=== PATIENT | female | born 1960 | race Caucasian/White ===

== ENCOUNTER 2021-05-30 23:22 | Inpatient (IN) | payer BC, SELFPAY ==
--- NOTE | ~2021-05-30 | XR_ITS ---
EXAMINATION: XR fl guide central line place DATE: 06/07/2021 16:18 INDICATION: Tunneled dialysis catheter insertion TECHNIQUE: 2 fluoroscopic images of the chest were obtained during procedure performed by Dr. Conway. Radiologist was not present for the imaging or procedure. The amount of fluoroscopy time used during this procedure was 0.1 minutes. COMPARISON: None. FINDINGS: Large bore dual lumen tunneled right internal jugular central venous dialysis catheter with distal tip at the right atrium. No pneumothorax. IMPRESSION: 1. Right internal jugular central venous catheter tip at the right atrium. Reviewed, dictated and finalized at location A. PORTAL DEVELOPER
--- NOTE | ~2021-05-30 | NM_ITS ---
EXAMINATION: NM hepatobiliary wo pharm DATE: 06/03/2021 16:18 INDICATION: Gallbladder edema COMPARISON: CT dated 05/31/2021 TECHNIQUE: mCi Tc-99m mebrofenin (Choletec) was administered intravenously. Scintigraphic images of the abdomen were obtained for one hour. At the 1 hour time point, the patient drank 8 oz Ensure, and imaging was continued for 60 minutes. Gallbladder ejection fraction was calculated by the technologis t. FINDINGS: There is normal clearance of radiotracer from the blood pool. There is homogeneous tracer u ptake by the liver. Activity progresses to the through the common bile duct into the bowel which is first visible by 10 minutes. No evident activity within the gallbladder however the first hour of amy ging or on the 4 hour delayed images which can be seen with acute cholecystitis. IMPRESSION: 1. No evident activity in the gallbladder which would be consistent with acute cholecystitis. Reviewed, dictated and finalized at location A. GENERALIST
--- NOTE | ~2021-05-30 | CT_ITS ---
EXAMINATION: CT femur RT wo con DATE: 06/02/2021 10:33 INDICATION: Right lower limb stump infection. TECHNIQUE: Computed tomography (CT) of the right lower limb was performed without intravenous contras t. Automated exposure control and iterative reconstruction technique were employed. The dose-length p roduct was 1268.69 mGy-cm. COMPARISON: None FINDINGS: Bone alignment is normal. There are changes of [id number] amputation. No fracture. The re are no erosions of bone to suggest osteomyelitis. There is severe osteoarthritis of the hip joint. There is mild tricompartmental osteoarthritis of the knee. No knee joint effusion. There is widespre ad edema of the soft tissues. IMPRESSION: 1. Below knee amputation. No evidence of osteomyelitis. Reviewed, dictated and finalized at location A. OR SYSTEMS ARCHITECT
--- NOTE | ~2021-05-30 | XR_ITS ---
EXAMINATION: XR chest port-a-cath/central EXAM DATE: 06/07/2021 16:39 INDICATION: Insert Tunneled Dialysis Catheter. TECHNIQUE: Portable AP frontal chest x-ray was obtained. There is no prior study for comparison. FINDINGS: There is a left-sided portacatheter, tip overlying the SVC but projecting right laterally. There is a right-sided IJ double-lumen dialysis catheter in position. Left basilar segmental airspace disease, atelectasis or pneumonia. Mild cardiomegaly. No pneumothorax. IMPRESSION: 1. Left basilar atelectasis or pneumonia. 2. No pneumothorax. 3. Left evie catheter with tip overlying SVC but projecting for patient's right side. Reviewed, dictated and finalized at location G. CAL EXAMINER IMPRESSION: 1. Left basilar atelectasis or pneumonia. 2. No pneumothorax. 3. Left evie catheter with tip overlying SVC but projecting for patient's rig ht side.
--- NOTE | ~2021-05-30 | CT_ITS ---
EXAMINATION: CT abdomen pelvis wo con DATE: 05/31/2021 03:54 INDICATION: Unspecified abdominal pain TECHNIQUE: Computed tomography (CT) of the abdomen and pelvis was performed without intravenous contr ast. Automated exposure control and iterative reconstruction technique were employed. The dose-length product was 1459.11 mGy-cm. COMPARISON: None FINDINGS: Bilateral small posterior layering pleural effusions with dependent compressive atelectasis in the bi lateral lower lobes. There is scattered high attenuation in the atelectatic aspect of the bilateral l ower lobes with configuration particularly in the right lower lobe suggesting a small amount of aspir ated barium in the bronchi versus less likely small calcified pulmonary nodules related to old granul omatous disease. Heart size is normal. Minimal pericardial effusion. Liver, spleen, pancreas and bila teral adrenal glands are normal. lobulations of the bilateral kidneys. Gallstones surrounded by high attenuation sludge versus vicariously excreted contrast in the gallbladder. The gallbladder rem ains normal in size measuring up to 3.6 cm in maximal luminal diameter but with prominent edematous g allbladder wall thickening. No bowel obstruction. Normal appendix. There is additional diffuse edemat ous wall thickening of the colon. Minimal ascites. No abscess or free intraperitoneal gas. Bladder is normal. The uterus is not identified and has likely been surgically resected. Diffuse large amount o f body wall edema. Couple fat-containing ventral hernias along a midline surgical scar with multiple abdominal wall sutures, the smaller and more caudal also containing a minimal amount of ascites. Mild degenerative skeletal changes in the spine and pelvis. IMPRESSION: 1. Anasarca of indeterminate etiology with small bilateral pleural effusions, minimal pericardial eff usion, large amount of severe body wall edema, small amount of ascites and likely at least partially accounting for the edematous gallbladder wall and colonic wall thickening. Differential for the latte r would include acute cholecystitis and colitis respectively. 2. Cholelithiasis. If there is clinical concern for acute cholecystitis could consider HIDA scan for further evaluation. 3. Couple fat-containing ventral hernias along a midline surgical scar. Reviewed, dictated and finalized at location A. INSTALLER IMPRESSION: 1. Anasarca of indeterminate etiology with small bilateral pleural effusions, m inimal pericardial effusion, large amount of severe body wall edema, small amou nt of ascites and likely at least partially accounting for the edematous gallbl adder wall and colonic wall thickening. Differential for the latter would inclu de acute cholecystitis and colitis respectively. 2. Cholelithiasis. If there is clinical concern for acute cholecystitis could c onsider HIDA scan for further evaluation. 3. Couple fat-containing ventral hernias along a midline surgical scar.
--- NOTE | ~2021-05-30 | CT_ITS ---
EXAMINATION: CT femur LT wo con DATE: 06/02/2021 10:32 INDICATION: Stump infection. TECHNIQUE: Computed tomography (CT) of the left lower limb was performed without intravenous contrast . Automated exposure control and iterative reconstruction technique were employed. The dose-length pr oduct was 1300.00 mGy-cm. COMPARISON: None FINDINGS: Bone alignment is normal. No fracture. There is severe left hip osteomyelitis. There is mil d tricompartmental osteoarthritis of left knee. There is a small knee joint effusion. There are smith es of below knee amputation. There is periosteal reaction of the tibial stump. There are no erosions of bone. There is widespread edema of the soft tissues. IMPRESSION: 1. Left below-knee amputation. No specific evidence of osteomyelitis. Reviewed, dictated and finalized at location A. COMMANDER
--- NOTE | ~2021-05-30 | US_ITS ---
EXAMINATION: US renal BI DATE: 06/02/2021 08:57 INDICATION: Elevated creatinine. TECHNIQUE: Multiple ultrasound grayscale images of the kidneys were obtained. COMPARISON: CT abdomen and pelvis 05/31/2021 FINDINGS: The right kidney measures 13.3 x 5.2 x 5.0 cm. The left kidney measures 11.9 x 5.7 x 6.2 cm. The kidn eys demonstrate increased parenchymal echogenicity. There is no hydronephrosis. The bladder is normal . There are gallstones in the gallbladder, which is normal in size. IMPRESSION: 1. Normal kidney sizes. No hydronephrosis. 2. Increased renal parenchymal echogenicity, consistent with nonspecific nephropathy. 3. Cholelithiasis. Reviewed, dictated and finalized at location A. RACTIVE ART DIRECTOR IMPRESSION: 1. Normal kidney sizes. No hydronephrosis. 2. Increased renal parenchymal echogenicity, consistent with nonspecific nephro iza. 3. Cholelithiasis.
[2021-05-31 02:10] VITALS: BP 117/52; PULSE 62; RESP 17; TEMP 36.6; O2SAT 98
[2021-05-31 02:43] LABS: Basophils Absolute Auto 0.1 K/mm3 (0.0-0.1); Basophils Percent Auto 0.2 % (0.2-1.2); Eosinophils Percent Auto 0.1 % (0-4.4); Hematocrit 29.5 % (37.0-47.0); Hemoglobin 9.4 g/dL (12.0-15.0); Immature Granulocyte Absolute 1.07 K/mm3 (0.00-0.031); Immature Granulocyte Percent A 3.7 % (0-0.5); Lymphocytes Absolute Auto 1.02 K/mm3 (0.9-3.2); Lymphocytes Percent Auto 3.5 % (18.3-44.2); Mean Corpuscular HGB Conc 31.9 g/dl (32-36); Mean Corpuscular Hemoglobin 29.3 pg (26-34); Mean Corpuscular Volume 91.9 fl (80-100); Mean Platelet Volume 10.3 fl (7.4-10.4); Monocytes Absolute Auto 0.8 K/mm3 (0.1-0.6); Monocytes Percent Auto 2.6 % (2.6-8.5); Neutrophils Absolute Auto 26.1 K/mm3 (1.3-6.7); Neutrophils Percent Auto 89.9 % (45.5-73.1); Platelet Count Result 213 k/mm3 (150-375); Red Blood Count 3.21 M/mm3 (4.2-5.4); Red Cell Distribution Width 17.7 % (11.5-14.5); White Blood Count 29.1 K/mm3 (4.5-10.0)
[2021-05-31 02:59] LABS: Alanine Aminotransferase 15 U/L (4-35); Albumin Level 2.2 g/dL (3.5-5.1); Alkaline Phosphatase 121 U/L (38-126); Anion Gap 13 mmol/L (8-16); Aspartate Amino Transferase 25 U/L (14-36); Bilirubin,Total 0.3 mg/dL (0.2-1.3); Blood Urea Nitrogen 81 mg/dL (7-17); Calcium 7.3 mg/dL (8.4-10.2); Carbon Dioxide 10 mmol/L (22-30); Chloride 110 mmol/L (98-107); Estimated CRCL calculation 10 ml/min; Estimated Glomerular Filt Rate 7; Glucose 78 mg/dL (65-110); Potassium 4.9 mmol/L (3.4-5.0); Sodium 133 mmol/L (137-145)
[2021-05-31 03:14] LABS: D Dimer 5.57 ug/mL (<0.48)
[2021-05-31 03:16] LABS: Hypochromasia 1+ (NORMAL); Platelet Estimate Adequate (Adequate)
--- NOTE | 2021-05-31 03:39 | ED.GENADULT ---
HPI - General Adult General Chief complaint: Unspecified Stated complaint: FACIAL SWELLING, CANT SIT IN WAITING ROOM Time Seen by Provider: 05/31/21 01:20 Source: patient History of Present Illness HPI narrative: Patient presents with facial and left upper extremity swelling. She has a history of chronic kidney disease is in a nursing facility. Today health care team noted that her arm is swollen her face is swollen. Patient felt like her arm and face were swollen. On arrival to the ER she reports she thinks the swelling is gone down she is feeling much improved and has no acute complaints. She denies any shortness of breath, chest pain, recent fevers, cough, congestion. She does report having some diarrhea recently. Related Data Home Medications Medication Instructions Recorded Confirmed ascorbic acid (vitamin C) 250 mg PO DAILY 05/31/21 atorvastatin 40 mg PO DAILY 05/31/21 bisacodyl 5 mg PO HS 05/31/21 carvedilol 25 mg PO BID 05/31/21 clonidine HCl 0.3 mg PO DAILY 05/31/21 diltiazem HCl 360 mg PO DAILY 05/31/21 doxazosin 8 mg PO HS 05/31/21 ferrous sulfate 325 mg PO DAILY 05/31/21 isosorbide-hydralazine [BiDil] 1 tablet PO TID 05/31/21 minoxidil 2.5 mg PO DAILY 05/31/21 omeprazole 40 mg PO DAILY 05/31/21 Allergies Allergy/AdvReac Type Severity Reaction Status Date / Time No Known Allergies Allergy Verified 05/31/21 02:17 Review of Systems Review of Systems: CONSTITUTIONAL: Denies fever, chills, or sweats. EYES: Denies visual changes, redness, or discharge. ENT: Denies rhinorrhea, congestion, sore throat, or otalgia. CARDIOVASCULAR: Denies chest pain, palpitations, or edema. RESPIRATORY: Denies cough or dyspnea. GASTROINTESTINAL: Denies abdominal pain, nausea, vomiting, or diarrhea. GENITOURINARY: Denies dysuria or hematuria. SKIN: Denies rash or itching. MUSCULOSKELETAL: Denies back pain, joint pain, or myalgia. NEUROLOGIC: Denies headache, numbness, dizziness, or weakness. PSYCHIATRIC: Denies anxiety or depression. All systems reviewed & are unremarkable except as noted in HPI and below Exam Narrative: GENERAL: Well-appearing, well-nourished, and in no acute distress. HEAD: Normocephalic, atraumatic. EYES: PERRLA and EOMI. ENT: Nares clear, no rhinorrhea or epistaxis. Mucous membranes moist. NECK: Supple. No masses. No JVD CHEST: Clear to auscultation. No respiratory distress. No wheezes rales or rhonchi there is a port in place on the left chest HEART: Regular rate and rhythm. No murmur heard. Normal peripheral pulses. ABDOMEN: Soft, nontender, nondistended, normal active bowel sounds. EXTREMITIES: Normal range of motion. No edema. SKIN: Warm, dry, no rash. NEURO: No focal deficits. Alert and oriented x3. PSYCH: Normal mood and affect. Course Vital Signs Vital signs: Vital Signs Temperature 36.6 C 05/31/21 02:10 Pulse Rate 62 05/31/21 02:10 Respiratory Rate 17 05/31/21 02:10 Blood Pressure 117/52 L 05/31/21 02:10 Pulse Oximetry 98 05/31/21 02:10 Temperature 36.6 C 05/31/21 02:10 Pulse Rate 62 05/31/21 02:10 Respiratory Rate 17 05/31/21 02:10 Blood Pressure 117/52 L 05/31/21 02:10 Pulse Oximetry 98 05/31/21 02:10 Medical Decision Making [facility] Narrative Medical decision making narrative: Patient presented with left arm swelling and left facial swelling however resolved at time of ER evaluation she did report some abdominal pain. Labs imaging obtained. Labs notable for creatinine of 6 up from 3.8 approximately 1 to 2 weeks ago and leukocytosis. Imaging with pancolitis and filling of the gallbladder and rule out cholecystitis. Patient had right upper quadrant abdominal pain during initial evaluation resolved with morphine. She continued without pain after her morphine. No complaints however due to her lab abnormalities patient will be admitted to the hospitalist team surgical consultation for imaging findings. Patient is comfortable with inpatient reymundo
[2021-05-31] MEDS: MORPHINE SULFATE (*CRX) 4 MG/ML INJ IV PUSH ×2 (04:19→22:56)
[2021-05-31] MEDS: SODIUM CHLORIDE 0.9% IV 500 ML 999 ML IV CONT (04:20)
[2021-05-31 05:22] LABS: Lactic Acid Reflex 0.8 mmol/L (0.7-2.1)
[2021-05-31 06:03] LABS: Appearance Urine Clear (Clear); Bilirubin Urine Negative (Negative); Blood Urine Negative (Negative); Color Urine Yellow (Yellow); Glucose Urine UA Negative (Negative); Ketones Urine Negative (Negative); Leukocyte Esterase Ur Negative LEU/UL (Negative); Nitrate Urine Negative (Negative); Protein Urine 3+ mg/dL (Negative); Urobilinogen Urine 0.2 mg/dL (<2.0)
[2021-05-31 06:08] LABS: Bacteria Urine Trace /hpf; Mucus Urine Rare /lpf; WBC Urine 0-3 /hpf
[2021-05-31 06:17] LABS: Add Urine Microscopic? YES
[2021-05-31] MEDS: SODIUM CHLORIDE 0.9% IV 1,000 ML 999 ML IV CONT (06:58)
[2021-05-31 07:00] VITALS: BP 103/45; PULSE 66; RESP 17; O2SAT 97
[2021-05-31] MEDS: metroNIDAZOLE 500 MG/ISO 100ML 500 MG/100 ML BAG 100 MG IVPB ×3 (07:17→22:56)
[2021-05-31 07:37] VITALS: BP 113/44; PULSE 72; RESP 16; O2SAT 100
[2021-05-31 07:50] VITALS: BMI 34.7
--- NOTE | 2021-05-31 07:50 | ADMGEN ---
This patient, Piedad Morales, was admitted to [facility] Surg Room 315-01. Patient/family oriented to hospital policies and general routines including ID bracelet, bed and alarms, visiting hours, pain management, procedures, bathroom and other care routines, personal items, smoking policy, room service/diet, and visiting hours. Information on how to activate the Rapid Response Team has been discussed. Patient/Family are encouraged to report perceived risks to care and to ask questions if they do not understand what they are told or what they should do.
[2021-05-31 07:55] LABS: Toxigenic C. Diff POSITIVE (NEGATIVE)
[2021-05-31 08:00] VITALS: BP 107/44; PULSE 66; RESP 14; TEMP 35.8; O2SAT 98
[2021-05-31] MEDS: SODIUM CHLORIDE 0.9% IV 1,000 ML 125 ML IV CONT ×3 (08:39→19:37)
--- NOTE | 2021-05-31 09:45 | PM.IMHP ---
H&P: HPI History of Present Illness Date/Time: 05/31/21 09:45 Chief Complaint: Piedad Morales is a 61 year old lady with a past medical history of IDDM, CKD, and HTN who has been admitted after presenting to the ED from the [place] with complaints of of facial and left upper extremity swelling. The patient is somewhat of a poor historian and it is slow to answer questions. Her symptoms resolved upon arrival to the ED. She had no acute complaints and felt much better. She did report having diarrhea and abdomial pain. During interview and exam she does report been exposed to COVID 19 because she is roomed with positive residents in her facility. She denied any cough, SOB, CP, palpitations, nausea or vomiting. ED evaluation included and revealed: WBC 29.1; H/H 9.4/29.5; BUN/Cr 81/6.10; Na 133. CT of A/P showed pancolitis and filling of the gallbladder and rule out cholecystitis. The patient was treated with morphine and abdominal pain resolved. IV antibiotics were initiated in the ED. General surgery was consulted and the patient has been admitted for further evaluation and treatment. Review of Systems Review of Systems: All systems reviewed & are unremarkable except as noted in HPI and below Meds Home Medications and Allergies Home Medications Medication Instructions Recorded Confirmed Type ascorbic acid (vitamin C) 250 mg PO DAILY 05/31/21 History atorvastatin 40 mg PO DAILY 05/31/21 History bisacodyl 5 mg PO HS 05/31/21 History carvedilol 25 mg PO BID 05/31/21 History clonidine HCl 0.3 mg PO DAILY 05/31/21 History diltiazem HCl 360 mg PO DAILY 05/31/21 History doxazosin 8 mg PO HS 05/31/21 History ferrous sulfate 325 mg PO DAILY 05/31/21 History isosorbide-hydralazine [BiDil] 1 tablet PO TID 05/31/21 History minoxidil 2.5 mg PO DAILY 05/31/21 History omeprazole 40 mg PO DAILY 05/31/21 History Allergies Allergy/AdvReac Type Severity Reaction Status Date / Time No Known Allergies Allergy Verified 05/31/21 02:17 Vital Signs Vital Signs - 24 hr 05/31/21 02:10 05/31/21 07:00 05/31/21 07:37 Temperature 36.6 C Pulse Rate 62 66 72 Respiratory Rate 17 17 16 Blood Pressure 117/52 L 103/45 L 113/44 L Pulse Oximetry 98 97 100 05/31/21 08:00 Temperature 35.8 C L Pulse Rate 66 Respiratory Rate 14 Blood Pressure 107/44 L Pulse Oximetry 98 Exam Narrative: GENERAL: Well-appearing, well-nourished, and in no acute distress. HEAD: Normocephalic, atraumatic. EYES: PERRLA and EOMI. ENT: Nares clear, no rhinorrhea or epistaxis. Mucous membranes moist. NECK: Supple. No masses. No JVD RESP: Clear to auscultation. No respiratory distress. No wheezes rales or rhonchi there is a port in place on the left chest CARDIO: Regular rate and rhythm. No murmur heard. Normal peripheral pulses. GI: Soft, nontender, nondistended, normal active bowel sounds. EXTREMITIES: Right BKA; left BKA. No edema. SKIN: Warm, dry, no rash. NEURO: Alert and oriented x3. Normal speech. PSYCH: Cooperative. H&P: Results Labs Labs: Short CBC 05/31/21 Range/Units 02:34 WBC 29.1 H (4.5-10.0) K/mm3 Hgb 9.4 L (12.0-15.0) g/dL Hct 29.5 L (37.0-47.0) % Plt Count 213 (150-375) k/mm3 BMP 05/31/21 02:34 Sodium 133 L Potassium 4.9 Chloride 110 H Carbon Dioxide 10 L BUN 81 H Creatinine 6.10 H Glucose 78 Calcium 7.3 L Liver Function 05/31/21 Range/Units 02:34 Total Bilirubin 0.3 (0.2-1.3) mg/dL AST 25 (14-36) U/L ALT 15 (4-35) U/L Alkaline Phosphatase 121 (38-126) U/L Albumin 2.2 L (3.5-5.1) g/dL Urine 05/31/21 Range/Units 05:51 Urine Color Yellow (Yellow) Urine Appearance Clear (Clear) Urine pH 5.0 (5.0-9.0) Ur Specific [place] 1.020 (1.001-1.035) Urine Protein 3+ H (Negative) mg/dL Urine Glucose (UA) Negative (Negative) mg/dL Assessment and Plan Assessment and plan (1) Bladder wall thickening: Code(s): N32.89 - Other specif
--- NOTE | 2021-05-31 10:15 | PM.CNGS ---
Assessment and Plan Assessment and plan (1) Abdominal pain: Code(s): R10.9 - Unspecified abdominal pain Status: Acute Assessment and Plan: exam benign this am, will start diet and cont serial exams (2) Leukocytosis: Code(s): D72.829 - Elevated white blood cell count, unspecified Status: Acute Assessment and Plan: unknown etiology, ?CDiff colitis, cont abx and workup for now History of Present Illness Consult details Consult date: 05/31/21 Reason for consult: abdominal pain Requesting physician: Michelle Mireles DO Narrative: Pt is a 61 y/o F c multiple med issues including CKD, HTN, DM presenting to ED from [place] c L sided facial and upper ext swelling. Upon arrival in ED, these symptoms were noted to be resolved. Pt also c/o 1 d h/o R upper abd pain associated c diarrhea. Pt reports she has had a poor appetite. Pt reports this is also resolved. Pt now reports she is quite hungry and would like to eat. Review of Systems Constitutional: Constitutional: Reports anorexia, Denies chills, Reports fatigue, Denies fever(s), Denies increased appetite, Reports lethargy, Reports poor appetite, Reports weakness, Denies weight gain and Denies weight loss Eyes: Eyes: Reports no additional eye complaints ENT: Reports system reviewed and no additional complaints, except as documented Cardiovascular: Cardiovascular: Reports no additional cardiovascular complaints Respiratory: Respiratory: Reports no additional respiratory complaints Gastrointestinal: Gastrointestinal: Reports as per HPI, Reports abdominal pain, Reports bloating, Reports change in bowel habits, Reports change in stool character, Denies constipation, Reports GI cramping, Reports diarrhea, Reports loose stools, Denies nausea and Denies vomiting Genitourinary: Genitourinary: Reports no additional female genitourinary complaints Musculoskeletal: Musculoskeletal: Reports no additional musculoskeletal complaints Integumentary/Breasts: Skin/Breast: Reports system reviewed and no additional complaints, except as docu Neurologic: Reports system reviewed and no additional complaints, except as documented Psychiatric: Psychiatric: Reports no additional psychiatric complaints Endocrine: Endocrine: Reports no additional endocrine complaints Hematologic/Lymphatic: Hematologic/Lymphatic: Reports no additional hematologic/lymphatic complaints Allergic/Immunologic: Allergic/Immunologic: Reports no additional allergic/immunologic complaints PMFSH Comments PMH - HTN, DM, CKD, hyperlipidemia PSH - hysterectomy SH - resides in [place], denies tob, ETOH FH - no CRC, IBD Meds Home Medications and Allergies Home Medications Medication Instructions Recorded Confirmed Type ascorbic acid (vitamin C) 250 mg PO DAILY 05/31/21 History atorvastatin 40 mg PO DAILY 05/31/21 History bisacodyl 5 mg PO HS 05/31/21 History carvedilol 25 mg PO BID 05/31/21 History clonidine HCl 0.3 mg PO DAILY 05/31/21 History diltiazem HCl 360 mg PO DAILY 05/31/21 History doxazosin 8 mg PO HS 05/31/21 History ferrous sulfate 325 mg PO DAILY 05/31/21 History isosorbide-hydralazine [BiDil] 1 tablet PO TID 05/31/21 History minoxidil 2.5 mg PO DAILY 05/31/21 History omeprazole 40 mg PO DAILY 05/31/21 History Allergies Allergy/AdvReac Type Severity Reaction Status Date / Time No Known Allergies Allergy Verified 05/31/21 02:17 Vital Signs Vital Signs - 24 hr 05/31/21 02:10 05/31/21 07:00 05/31/21 07:37 Temperature 36.6 C Pulse Rate 62 66 72 Respiratory Rate 17 17 16 Blood Pressure 117/52 L 103/45 L 113/44 L Pulse Oximetry 98 97 100 05/31/21 08:00 Temperature 35.8 C L Pulse Rate 66 Respiratory Rate 14 Blood Pressure 107/44 L Pulse Oximetry 98 Exam Const: General: cooperative, no acute distress, alert, awake and ill appearing Nutritional Appearance: obese Orientation/consciousness: patient oriented x3 Limitations: no limitations [facility]
[2021-05-31 11:53] LABS: Glucose Point of Care 85 mg/dl (65-105)
[2021-05-31 16:00] VITALS: BP 133/46; PULSE 74; RESP 16; TEMP 35.9; O2SAT 98
[2021-05-31 17:48] LABS: Glucose Point of Care 106 mg/dl (65-105)
[2021-05-31] MEDS: PERMETHRIN 1% LIQUID 59 ML BOTTLE 1 APPLIC TOPICAL (19:36)
[2021-05-31 20:00] VITALS: BP 141/48; PULSE 76; RESP 16; TEMP 36.6; O2SAT 97
[2021-06-01] VITALS (7 sets, daily range): BP systolic 140–167; BP diastolic 45–80; PULSE 79–89; RESP 14–19; TEMP 36.3–36.7; O2SAT 96–98
[2021-06-01 00:04] LABS: Glucose Point of Care 116 mg/dl (65-105)
--- NOTE | 2021-06-01 02:22 | PC.NURSE ---
06/01/2021221 pt refused to allow staff to turn and reposition while in bed.
--- NOTE | 2021-06-01 04:08 | PC.NURSE ---
06/01/2021 0409 pt refused to allow staff to turn and reposition.
[2021-06-01] MEDS: SODIUM CHLORIDE 0.9% IV 1,000 ML 125 ML IV CONT (05:08)
[2021-06-01] MEDS: metroNIDAZOLE 500 MG/ISO 100ML 500 MG/100 ML BAG 100 MG IVPB ×3 (05:50→20:41)
[2021-06-01 06:29] LABS: Hematocrit 29.1 % (37.0-47.0); Hemoglobin 9.4 g/dL (12.0-15.0); Mean Corpuscular HGB Conc 32.3 g/dl (32-36); Mean Corpuscular Hemoglobin 28.7 pg (26-34); Mean Platelet Volume 10.9 fl (7.4-10.4); Platelet Count Result 252 k/mm3 (150-375); Red Blood Count 3.27 M/mm3 (4.2-5.4); Red Cell Distribution Width 17.9 % (11.5-14.5); White Blood Count 30.4 K/mm3 (4.5-10.0)
[2021-06-01 06:38] LABS: Albumin Level 2.2 g/dL (3.5-5.1); Anion Gap 9 mmol/L (8-16); Blood Urea Nitrogen 78 mg/dL (7-17); Calcium 6.7 mg/dL (8.4-10.2); Carbon Dioxide 9 mmol/L (22-30); Chloride 113 mmol/L (98-107); Estimated CRCL calculation 10 ml/min; Estimated Glomerular Filt Rate 7; Glucose 91 mg/dL (65-110); Potassium 4.4 mmol/L (3.4-5.0); Sodium 131 mmol/L (137-145)
[2021-06-01 06:51] LABS: Hemoglobin A1C 5.7 % (<5.7)
[2021-06-01 06:53] LABS: Iron 49 ug/dL (37-170)
[2021-06-01 07:04] LABS: Percent Iron Saturation 41 % (20-50)
[2021-06-01 08:09] LABS: Glucose Point of Care 86 mg/dl (65-105)
--- NOTE | 2021-06-01 10:40 | PM.PNGS ---
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 Status: Acute Assessment and Plan: exam benign, parish diet, seems secondary to anasarca, will get HIDA to further evaluate Subjective Subjective Date/Time Seen: 06/01/21 10:40 no acute issues, parish full liquids, no abd pain, still c some diarrhea Review of Systems Review of Systems: All systems reviewed & are unremarkable except as noted in HPI and below Exam Const: General: cooperative, comfortable, no acute distress and ill appearing Orientation/consciousness: patient oriented x3 Resp: Auscultation: clear to auscultation bilaterally Cardio: Rate: regular rate Rhythm: regular rhythm GI: Inspection: normal to inspection and distended GI Palp: Yes Soft to palpation, No Tenderness to palpation present (GI), No Guarding due to palpation present (GI) and No Rigid due to palpation Objective Data Vital Signs Vital Signs: Vital Signs - 24 hr 05/31/21 16:00 05/31/21 20:00 06/01/21 00:00 Temperature 35.9 C L 36.6 C 36.3 C L Pulse Rate 74 76 79 Respiratory Rate 16 16 16 Blood Pressure 133/46 L 141/48 H 140/45 L Pulse Oximetry 98 97 98 06/01/21 04:00 06/01/21 08:00 Temperature 36.5 C 36.6 C Pulse Rate 81 83 Respiratory Rate 19 14 Blood Pressure 147/47 H 147/53 H Pulse Oximetry 98 96 Intake/Output Intake/Output: Intake & Output 05/29/21 05/30/21 05/31/21 06/01/21 23:59 23:59 23:59 23:59 Intake Total 5050 2750 Balance 5050 2750 Meds/Results Medications: Active Medications Generic Name Dose Route Start Last Admin Trade Name Freq PRN Reason Stop Dose Admin Dextrose 12.5 gm 05/31/21 10:23 Dextrose 50% 25 Gm/50 Ml Syringe IV PUSH PRN PRN Hypoglycemia Protocol Glucagon 1 mg 05/31/21 10:23 Glucagon For Inj 1 Mg Vial IM PRN PRN Hypoglycemia Protocol Glucose 15 gm 05/31/21 10:23 Glucose Oral Gel 15 Gm Of Glucse In 37.5 Gm Tube PO PRN PRN Hypoglycemia Protocol Piperacillin Sod/Tazobactam Sod 2.25 gm in 50 mls @ 100 mls/hr 05/31/21 14:00 06/01/21 05:08 Zosyn 2.25 Gm/D5w 50 Ml IVPB 100 mls/hr Q8HR GLORY Administration Metronidazole 500 mg in 100 mls @ 100 mls/hr 05/31/21 14:00 06/01/21 05:50 Flagyl 500 Mg/Iso Soln 100 Ml IVPB 100 mls/hr Q8HR GLORY Administration Sodium Chloride 1,000 mls @ 125 mls/hr 05/31/21 06:15 06/01/21 05:08 Normal Saline Iv IV CONT 125 mls/hr .Q8H GLORY Administration Dextrose 1,000 mls @ 100 mls/hr 05/31/21 10:23 Dextrose 5% 1,000 Ml IVPB PRN PRN Hypoglycemia Protocol Morphine Sulfate 4 mg 05/31/21 06:12 05/31/21 22:56 Morphine Sulfate (*Crx) 4 Mg/Ml Inj IV PUSH 4 mg Q2H PRN Administration Pain Rated 7-10 Ondansetron HCl 4 mg 05/31/21 06:12 Ondansetron Inj 4 Mg/2 Ml Vial IV PUSH Q4H PRN Nausea Radiology Results: ITS Impressions Abdomen/Pelvis CT 05/31/21 08:17 IMPRESSION: 1. Anasarca of indeterminate etiology with small bilateral pleural effusions, minimal pericardial effusion, large amount of severe body wall edema, small amount of ascites and likely at least partially accounting for the edematous gallbladder wall and colonic wall thickening. Differential for the latter would include acute cholecystitis and colitis respectively. 2. Cholelithiasis. If there is clinical concern for acute cholecystitis could consider HIDA scan for further evaluation. 3. Couple fat-containing ventral hernias along a midline surgical scar. Labs Labs: Laboratory Results - last 24 hr 05/31/21 05/31/21 05/31/21 11:50 17:45 23:05 WBC RBC Hgb Hct MCV MCH MCHC RDW Plt
--- NOTE | 2021-06-01 10:50 | PM.IMPN ---
Progress Note: A&P Assessment and Plan (1) Bladder wall thickening: Code(s): N32.89 - Other specified disorders of bladder Status: Acute Assessment and Plan: R/o cholecystitis GS consulted, continue current treatment (2) Colitis: Code(s): K52.9 - Noninfective gastroenteritis and colitis, unspecified Status: Acute Assessment and Plan: Continue IVF Continue with IV antibiotics I am concerned more on the side of edema than infectious colitis (3) IDDM (insulin dependent diabetes mellitus): Status: Acute Assessment and Plan: Resume home medication (4) HTN (hypertension) with goal to be determined: Code(s): I10 - Essential (primary) hypertension Status: Acute Assessment and Plan: DC IV fluid Adjusted home medication (5) C. difficile colitis: Code(s): A04.72 - Enterocolitis due to Clostridium difficile, not specified as recurrent Status: Acute Assessment and Plan: Will get old records I am not seen C diff positive in the records (6) Person under investigation for COVID-19: Code(s): Z20.822 - Contact with and (suspected) exposure to COVID-19 Status: Acute Assessment and Plan: Pt shares room with COVID pts Continue to monitor Denies any symptoms (7) CKD (chronic kidney disease): Code(s): N18.9 - Chronic kidney disease, unspecified Status: Acute Assessment and Plan: Acute on top of chronic renal failure DC IV fluid patient has anasarca urine study was sent nephrology consult CT scan no evidence of hydronephrosis Give IV Lasix give 1 dose of IV albumin pending nephrology eval (8) Anemia: Code(s): D64.9 - Anemia, unspecified Status: Acute Assessment and Plan: Hgb 9.4 Transfuse if <7 Monitor Subjective Date/time seen: 06/01/21 10:50 Interval history: Patient seen and examined Patient presented to the hospital with abdominal pain CT scan shows anasarca concern for colitis cholecystitis surgery was consulted patient was treated with empiric antibiotic has she has significant leukocytosis but also CT scan shows pericardial effusion pleural effusion concern for anasarca Patient denies fever headache chest pain I am seeing the patient for anasarca Exam Narrative: Alert Chest decreased air entry bilateral positive crackles Abdomen nontender nondistended CVS S1 + S2 Bilateral lower extremity stump edema Objective Data Vital Signs Vital Signs: Vital Signs - 24 hr 05/31/21 16:00 05/31/21 20:00 06/01/21 00:00 Temperature 96.6 F L 97.8 F 97.4 F L Pulse Rate 74 76 79 Respiratory Rate 16 16 16 Blood Pressure 133/46 L 141/48 H 140/45 L Pulse Oximetry 98 97 98 06/01/21 04:00 06/01/21 08:00 Temperature 97.7 F 97.8 F Pulse Rate 81 83 Respiratory Rate 19 14 Blood Pressure 147/47 H 147/53 H Pulse Oximetry 98 96 Intake/Output Intake/Output: Intake & Output 05/29/21 05/30/21 05/31/21 06/01/21 23:59 23:59 23:59 23:59 Intake Total 5050 2750 Balance 5050 2750 Meds/Results Medications: Active Medications Generic Name Dose Route Start Last Admin Trade Name Freq PRN Reason Stop Dose Admin Hydrocodone Bitart/Acetaminophen 1 tab 06/01/21 10:45 Hydrocodone/Acetaminophen (*Crx) 5-325 Mg Tablet PO Q4H PRN Pain Albuterol 2 puff 06/01/21 10:45 Albuterol Sulfate (*Sp) Aerosol 1 Puff INHALATION Q4H PRN Shortness Of Breath Ascorbic Acid 500 mg 06/02/21 09:00 Ascorbic Acid 500 Mg Tablet PO DAILY [facility] Atorvastatin Calcium 40 mg 06/02/21 09:00 Atorvastatin 40 Mg Tablet PO DAILY [facility] Bisacodyl 5 mg 06/01/21 10:45 Bisacodyl 5 Mg Tablet Ec PO HS PRN Constipation Carvedilol 25 mg 06/01/21 17:00 Carvedilol 25 Mg Tablet PO BID [facility] Clonidine HCl 0.1 mg 06/01/21 13:00 Clonidine Hcl 0.1 Mg Tablet PO TID GLORY Dextrose 12.5 gm 05/31/21 10:23 Dextrose 50% 25 Gm/
--- NOTE | 2021-06-01 11:40 | PM.CNNEP ---
Assessment and Plan Assessment and plan (1) CKD (chronic kidney disease): Code(s): N18.9 - Chronic kidney disease, unspecified Status: Acute Assessment and Plan: the patient has chronic kidney disease. She sees a crepe box tender in [place]. They have talked about dialysis but apparently she is not there yet. It does not sound like her creatinine is has high at baseline is it is here now. Most likely diabetes and hypertension of the cause of her kidney disease. Will try to get some records from [place]. The patient has probable acute kidney injury as well. This might be due to dehydration. She is not eating all that well and she has significant diarrhea. She also has C diff which could also lead to an increase in creatinine if the colitis is severe. Rhabdomyolysis is always a possibility so will check a CK. Obstruction is always a possibility so will check a renal ultrasound there other causes such as glomerulonephritis or interstitial nephritis which I think are less likely in this clinical scenario. Will check a renal ultrasound, urine electrolytes, CPK, and repeat the labs tomorrow after getting some more IV fluids and treating the C diff. (2) Person under investigation for COVID-19: Code(s): Z20.822 - Contact with and (suspected) exposure to COVID-19 Status: Acute Assessment and Plan: the patient is on respiratory isolation. (3) C. difficile colitis: Code(s): A04.72 - Enterocolitis due to Clostridium difficile, not specified as recurrent Status: Acute Assessment and Plan: The patient is on contact / washer hands isolation. She is on Flagyl. (4) Anemia: Code(s): D64.9 - Anemia, unspecified Status: Acute Assessment and Plan: Hemoglobin is 9.4. Not low enough to start GYPSY for now. (5) Hyperkalemia: Code(s): E87.5 - Hyperkalemia Status: Acute Assessment and Plan: the patient is on Kayexalate at home. This of course would contribute to her diarrhea but does not cause C diff. Her potassium is okay here. I think we will hold off on giving this for now. (6) HTN (hypertension) with goal to be determined: Code(s): I10 - Essential (primary) hypertension Status: Acute Assessment and Plan: Blood pressure is doing pretty well. I think we will just resume her home medications. (7) IDDM (insulin dependent diabetes mellitus): Status: Acute Assessment and Plan: She is on Accu-Cheks and sliding-scale insulin. History of Present Illness Reason for Consult Consult date: 06/01/21 Chief Complaint Chief complaint: Leuckocytosis History of Present Illness Narrative: Piedad is a very pleasant 61-year-old lady who has multiple medical problems including diabetes, hypertension, chronic kidney disease of unknown baseline, hyperlipidemia who came in to the hospital because of facial swelling. This is been going on for a few days. When she sat in the emergency room waiting room the symptoms improved. She was seen in the ER and found to have volume overload plus a very high creatinine and also abdominal discomfort and diarrhea for several weeks so she was admitted. The patient does see a crepe box tender in [place]. She does not know how her kidneys are functioning. Someone has mention dialysis but her primary care doctor does not want her to do that. She does have chronic swelling. This is been going on for a long time. It involves her legs and her hips and lower belly. The patient denies any bloody urine, foamy urine, kidney stones, or bladder infections. She does not take any Advil Aleve ibuprofen or Motrin. She has had diabetes for a long period of time. She does not have diabetic retinopathy that she knows of. On admission because of the belly pain she was seen by General surgery who felt that this could be observed. Review of Systems Constitutional: Cons
[2021-06-01 12:09] LABS: SARS-CoV-2 RNA PCR Positive
[2021-06-01 12:33] LABS: Glucose Point of Care 132 mg/dl (65-105)
[2021-06-01 13:04] LABS: Creatine Kinase 64 U/L (30-135)
[2021-06-01] MEDS: ALBUMIN HUMAN 25% 25 GM/100 ML 100 ML IVPB (13:08)
[2021-06-01 16:36] LABS: Glucose Point of Care 109 mg/dl (65-105)
[2021-06-01] MEDS: FUROSEMIDE INJ 40 MG/4 ML VIAL IV PUSH (18:15)
[2021-06-01] MEDS: hydrALAZINE 12.5 MG TABLET 37.5 MG PO (18:16)
[2021-06-01] MEDS: carvediloL 25 MG TABLET PO ×2 (18:16→20:40)
[2021-06-01] MEDS: cloNIDine HCL 0.1 MG TABLET PO (18:16)
[2021-06-01] MEDS: ISOSORBIDE DINITRATE 20 MG TABLET PO (18:16)
[2021-06-01] MEDS: traZODone HCL 50 MG TABLET 100 MG PO (20:41)
[2021-06-01] MEDS: HYDROcodone/acetaminophen (*CRX) 5-325 MG TABLET 1 TAB PO (20:58)
[2021-06-02] VITALS (8 sets, daily range): BP systolic 115–182; BP diastolic 41–61; PULSE 57–79; RESP 17–20; TEMP 35.9–36.9; O2SAT 96–99
[2021-06-02 05:17] LABS: Toxigenic C. Diff POSITIVE (NEGATIVE)
[2021-06-02] MEDS: metroNIDAZOLE 500 MG/ISO 100ML 500 MG/100 ML BAG 100 MG IVPB ×3 (05:26→21:02)
[2021-06-02 06:23] LABS: Albumin Level 2.2 g/dL (3.5-5.1); Anion Gap 14 mmol/L (8-16); Blood Urea Nitrogen 77 mg/dL (7-17); Calcium 6.5 mg/dL (8.4-10.2); Carbon Dioxide 8 mmol/L (22-30); Chloride 112 mmol/L (98-107); Estimated CRCL calculation 10 ml/min; Estimated Glomerular Filt Rate 7; Glucose 92 mg/dL (65-110); Phosphorus 7.9 mg/dL (2.5-4.5); Potassium 4.5 mmol/L (3.4-5.0); Sodium 134 mmol/L (137-145)
[2021-06-02 08:02] LABS: Glucose Point of Care 98 mg/dl (65-105)
[2021-06-02] MEDS: ISOSORBIDE DINITRATE 20 MG TABLET PO ×2 (09:17→12:13)
[2021-06-02] MEDS: carvediloL 25 MG TABLET PO ×2 (09:17→21:02)
[2021-06-02] MEDS: cloNIDine HCL 0.1 MG TABLET PO ×3 (09:17→16:40)
[2021-06-02] MEDS: ATORVASTATIN 40 MG TABLET PO (09:17)
[2021-06-02] MEDS: ASCORBIC ACID 500 MG TABLET PO (09:18)
[2021-06-02] MEDS: PANTOPRAZOLE 40 MG TABLET PO ×2 (09:18→21:01)
[2021-06-02] MEDS: hydrALAZINE 12.5 MG TABLET 37.5 MG PO ×2 (09:18→12:13)
[2021-06-02] MEDS: THERAPEUTIC MULTIVITAMINS/MINERALS TAB (*BKC) 1 TABLET PO (09:18)
[2021-06-02] MEDS: dilTIAZem HCL CD 180 MG CAP.ER.24H 360 MG PO (09:18)
[2021-06-02] MEDS: FERROUS SULFATE 324 MG TABLET PO (09:18)
[2021-06-02] MEDS: FUROSEMIDE INJ 40 MG/4 ML VIAL IV PUSH (09:19)
[2021-06-02] MEDS: DOCUSATE SODIUM 100 MG CAPSULE PO (09:19)
--- NOTE | 2021-06-02 09:33 | PM.IMPN ---
Progress Note: A&P Assessment and Plan (1) Bladder wall thickening: Code(s): N32.89 - Other specified disorders of bladder Status: Acute Assessment and Plan: R/o cholecystitis GS consulted, continue current treatment Pending HIDA scan (2) Colitis: Code(s): K52.9 - Noninfective gastroenteritis and colitis, unspecified Status: Acute Assessment and Plan: Continue IVF Continue with IV antibiotics I am concerned more on the side of edema than infectious colitis Pending stool study Pending C diff (3) IDDM (insulin dependent diabetes mellitus): Status: Acute Assessment and Plan: Resume home medication (4) HTN (hypertension) with goal to be determined: Code(s): I10 - Essential (primary) hypertension Status: Acute Assessment and Plan: DC IV fluid Adjusted home medication (5) C. difficile colitis: Code(s): A04.72 - Enterocolitis due to Clostridium difficile, not specified as recurrent Status: Acute Assessment and Plan: Continue Flagyl for now pending C diff (6) Person under investigation for COVID-19: Code(s): Z20.822 - Contact with and (suspected) exposure to COVID-19 Status: Acute Assessment and Plan: Pt shares room with COVID pts Continue to monitor Denies any symptoms COVID-19 is positive From the sign out patient has positive test at intermediate pending records before she came in (7) CKD (chronic kidney disease): Code(s): N18.9 - Chronic kidney disease, unspecified Status: Acute Assessment and Plan: Acute on top of chronic renal failure DC IV fluid patient has anasarca urine study was sent nephrology consult CT scan no evidence of hydronephrosis DC IV Lasix for today (8) Anemia: Code(s): D64.9 - Anemia, unspecified Status: Acute Assessment and Plan: Hgb 9.4 Transfuse if <7 Monitor (9) BKA stump complication: Code(s): T87.9 - Unspecified complications of amputation stump Status: Acute Assessment and Plan: Orthopedic consulted May need CT scan of the left stump Has increased drainage Subjective Date/time seen: 06/02/21 09:33 Interval history: Patient seen and examined Patient presented to the hospital with abdominal pain CT scan shows anasarca concern for colitis cholecystitis surgery was consulted patient was treated with empiric antibiotic has she has significant leukocytosis but also CT scan shows pericardial effusion pleural effusion concern for anasarca Renal function worsened yesterday Edema has improved DC IV Lasix Pending nephrology evaluation Pending ultrasound Pending blood culture Continue IV antibiotics Pending HIDA scan Patient has drainage from the left leg stump patient has a BKA on 05/12/2021 orthopedic was consulted Patient denies fever headache chest pain I am seeing the patient for anasarca Exam Narrative: Alert Chest decreased air entry bilateral positive crackles Abdomen nontender nondistended CVS S1 + S2 Bilateral lower extremity stump edema Objective Data Vital Signs Vital Signs: Vital Signs - 24 hr 06/01/21 12:00 06/01/21 16:00 06/01/21 20:00 Temperature 97.7 F 98.1 F 98.1 F Pulse Rate 89 88 82 Respiratory Rate 14 14 16 Blood Pressure 155/60 H 167/80 H 150/57 H Pulse Oximetry 97 97 98 06/01/21 22:45 06/02/21 00:00 06/02/21 04:00 Temperature 97.0 F L 97.8 F Pulse Rate 76 79 Respiratory Rate 18 18 Blood Pressure 146/54 H 152/61 H Pulse Oximetry 98 98 98 06/02/21 09:17 Temperature Pulse Rate 79 Respiratory Rate Blood Pressure Pulse Oximetry Intake/Output Intake/Output: Intake & Output 05/30/21 05/31/21 06/01/21 06/02/21 23:59 23:59 23:59 23:59 Intake Total 5050 3370 940 Balance 5050 3370 940 Meds/Results Medications: Active Medications Generic Name Dose Route Start Last Admin Trade Name Freq PRN Reason Stop Dose Admin Hydrocodone Bitart/Acetamino
[2021-06-02] MEDS: SODIUM BICARBONATE TAB 650 MG TABLET 1300 MG PO ×2 (09:34→16:41)
[2021-06-02] MEDS: SODIUM BICARBONATE 8.4% 50 MEQ/50 ML SYRINGE IV PUSH (09:34)
[2021-06-02 09:40] LABS: Basophils Absolute Auto 0.1 K/mm3 (0.0-0.1); Basophils Percent Auto 0.2 % (0.2-1.2); Eosinophils Absolute Auto 0.1 K/mm3 (0-0.3); Eosinophils Percent Auto 0.5 % (0-4.4); Hematocrit 28.8 % (37.0-47.0); Hemoglobin 9.1 g/dL (12.0-15.0); Immature Granulocyte Absolute 0.39 K/mm3 (0.00-0.031); Immature Granulocyte Percent A 1.9 % (0-0.5); Immature Platelet Fraction Pct 2.7 % (0.9-11.2); Lymphocytes Absolute Auto 0.89 K/mm3 (0.9-3.2); Lymphocytes Percent Auto 4.2 % (18.3-44.2); Mean Corpuscular HGB Conc 31.6 g/dl (32-36); Mean Corpuscular Hemoglobin 28.6 pg (26-34); Mean Corpuscular Volume 90.6 fl (80-100); Mean Platelet Volume 10.3 fl (7.4-10.4); Monocytes Absolute Auto 0.8 K/mm3 (0.1-0.6); Monocytes Percent Auto 3.7 % (2.6-8.5); Neutrophils Absolute Auto 18.8 K/mm3 (1.3-6.7); Neutrophils Percent Auto 89.5 % (45.5-73.1); Platelet Count Result 222 k/mm3 (150-375); Red Blood Count 3.18 M/mm3 (4.2-5.4); Red Cell Distribution Width 17.6 % (11.5-14.5)
[2021-06-02 09:45] LABS: Alanine Aminotransferase 11 U/L (4-35); Albumin Level 2.2 g/dL (3.5-5.1); Alkaline Phosphatase 108 U/L (38-126); Anion Gap 12 mmol/L (8-16); Aspartate Amino Transferase 21 U/L (14-36); Bilirubin,Total 0.2 mg/dL (0.2-1.3); Blood Urea Nitrogen 77 mg/dL (7-17); Calcium 6.6 mg/dL (8.4-10.2); Carbon Dioxide 9 mmol/L (22-30); Chloride 113 mmol/L (98-107); Estimated CRCL calculation 10 ml/min; Estimated Glomerular Filt Rate 7; Glucose 92 mg/dL (65-110); Potassium 4.5 mmol/L (3.4-5.0); Sodium 134 mmol/L (137-145)
--- NOTE | 2021-06-02 10:04 | PM.PNNEP ---
Progress Note: A&P Assessment and Plan (1) CKD (chronic kidney disease): Code(s): N18.9 - Chronic kidney disease, unspecified Status: Acute Assessment and Plan: the patient has chronic kidney disease. She sees a product owner in [place]. They have talked about dialysis but apparently she is not there yet. It does not sound like her creatinine is has high at baseline is it is here now. we have not received any records from them quite yet. Probably will get some tomorrow when the office is open up. Most likely diabetes and hypertension of the cause of her kidney disease. Renal ultrasound was viewed by me but report is not out yet. It looks like some increased echogenicity with normal size consistent with diabetic nephropathy. Urine electrolytes and protein are pending. UA is bland CPK is normal She has 3+ protein on her urinalysis. Urine protein to creatinine ratio has not been collected yet. I suspect she has nephrotic syndrome with her low albumin and severe edema. Will check an echocardiogram and see with the urine protein shows. The patient has COVID and also C diff colitis, both of which can cause acute on chronic renal insufficiency. at this point she has significant fluid burden. Will try diuretics to see if we can help this. Albumin might help as well. Will start this after couple doses of diuretics. The patient also has metabolic acidosis. This is probably from renal failure plus the diarrhea. Anion gap is only 12. Will give bicarb supplements. (2) Person under investigation for COVID-19: Code(s): Z20.822 - Contact with and (suspected) exposure to COVID-19 Status: Acute Assessment and Plan: the patient is on respiratory isolation. (3) C. difficile colitis: Code(s): A04.72 - Enterocolitis due to Clostridium difficile, not specified as recurrent Status: Acute Assessment and Plan: The patient is on contact / washer hands isolation. She is on Flagyl. (4) Anemia: Code(s): D64.9 - Anemia, unspecified Status: Acute Assessment and Plan: Hemoglobin is 9.4. Not low enough to start GYPSY for now. (5) Hyperkalemia: Code(s): E87.5 - Hyperkalemia Status: Acute Assessment and Plan: the patient is on Kayexalate at home. she is not on this now because of her diarrhea. Perhaps her C diff is keeping her potassium low. (6) HTN (hypertension) with goal to be determined: Code(s): I10 - Essential (primary) hypertension Status: Acute Assessment and Plan: Blood pressure is doing pretty well. I think we will just resume her home medications. (7) IDDM (insulin dependent diabetes mellitus): Status: Acute Assessment and Plan: She is on Accu-Cheks and sliding-scale insulin. Subjective Date/time seen: 06/02/21 10:04 Interval history: Patient feels about the same today. She gets short of breath when she moves around or lays flat. She is fine when she is in semi follows position. She is still very swollen. Review of Systems Cardiovascular: Cardiovascular: Reports no additional cardiovascular complaints Respiratory: Respiratory: Reports no additional respiratory complaints Gastrointestinal: Gastrointestinal: Reports no additional gastrointestinal complaints Genitourinary: Genitourinary: Reports no additional female genitourinary complaints Exam Narrative: WDWN in NAD skin no rash head ncat lungs clear cor reg no rub abd BS+ nontender and soft ext Bilateral [id number] amputations. She has 2+ edema up to the umbilicus. Objective Data Vital Signs Vital Signs: Vital Signs - 24 hr 06/01/21 12:00 06/01/21 16:00 06/01/21 20:00 Temperature 36.5 C 36.7 C 36.7 C Pulse Rate 89 88 82 Respiratory Rate 14 14 16 Blood Pressure 155/60 H 167/80 H 150/57 H Pulse Oximetry 97 97 98 06/01/21 22:45 06/02/21 00:00 06/02/21 04:00 Temperature 36
[2021-06-02 10:56] LABS: Hypochromasia 1+ (NORMAL); Platelet Estimate Adequate (Adequate)
[2021-06-02 10:57] LABS: Crenated RBC 2+ (NORMAL); Ovalocytes 1+ (NORMAL)
[2021-06-02 11:33] LABS: Glucose Point of Care 105 mg/dl (65-105)
[2021-06-02] MEDS: BUMETANIDE INJ 2.5 MG/10 ML VIAL 2 MG IV PUSH ×2 (11:54→16:40)
[2021-06-02] MEDS: MORPHINE SULFATE (*CRX) 4 MG/ML INJ IV PUSH (12:14)
--- NOTE | 2021-06-02 12:46 | PM.CNOR ---
Assessment and Plan Additional Plan L LE amputation stump retained stitch removed. dry sterile dressings and then may leave open to air once no drainage. wash daily with antiseptic wipe. F/U with operative surgeon once d/c from [facility] Could f/u with me as needed but this is not critical if wound is healing well. History of Present Illness HPI Consult date: 06/02/21 Chief complaint: Leuckocytosis Narrative: 61 yo f admitted for medical rx. She is about 1 month s/p left LE amputation. The stitches from the closure are still in place. Some serous drainage is starting at the lat corner of the incision. PMFSH Past Medical History Medical History (Updated 06/02/21 @ 09:37 by Fabiola Diaz MD) Hyperkalemia Social History Social History Smoking status: Former smoker Tobacco type: cigarettes Second hand tobacco smoke exposure: No Alcohol intake: never Substance use: never Gender identity (if verbalized by the patient): Female Sexual Orientation (if Verbalized by the Patient): Straight or Heterosexual Spiritual care concerns: No Meds Home Medications and Allergies Home Medications Medication Instructions Recorded Confirmed Type albuterol sulfate 2 puff INHALATION Q4H PRN 05/31/21 05/31/21 History ascorbic acid (vitamin C) 500 mg PO DAILY 05/31/21 05/31/21 History atorvastatin 40 mg PO DAILY 05/31/21 05/31/21 History bisacodyl 5 mg PO HS PRN 05/31/21 05/31/21 History carvedilol 25 mg PO BID 05/31/21 05/31/21 History clonidine HCl 0.3 mg PO TID 05/31/21 05/31/21 History diltiazem HCl 360 mg PO DAILY 05/31/21 05/31/21 History docusate sodium [DOK] 100 mg PO DAILY 05/31/21 05/31/21 History doxazosin 8 mg PO HS 05/31/21 05/31/21 History ferrous sulfate 325 mg PO DAILY 05/31/21 05/31/21 History hydrocodone-acetaminophen 1 tablet PO Q4H PRN 05/31/21 05/31/21 History insulin glargine [Lantus Solostar 10 unit SUBCUT HS 05/31/21 05/31/21 History U-100 Insulin] isosorbide-hydralazine [BiDil] 1 tablet PO TID 05/31/21 05/31/21 History minoxidil 5 mg PO DAILY 05/31/21 05/31/21 History multivitamin with minerals [Daily 1 tablet PO DAILY 05/31/21 05/31/21 History Multivitamin-Minerals] omeprazole 40 mg PO DAILY 05/31/21 05/31/21 History sodium polystyrene sulfonate 30 g PO DAILY 05/31/21 05/31/21 History trazodone 100 mg PO HS 05/31/21 05/31/21 History Allergies Allergy/AdvReac Type Severity Reaction Status Date / Time No Known Allergies Allergy Verified 05/31/21 02:17 Vital Signs Vital Signs - 24 hr 06/01/21 16:00 06/01/21 20:00 06/01/21 22:45 Temperature 36.7 C 36.7 C Pulse Rate 88 82 Respiratory Rate 14 16 Blood Pressure 167/80 H 150/57 H Pulse Oximetry 97 98 98 06/02/21 00:00 06/02/21 04:00 06/02/21 08:00 Temperature 36.1 C L 36.6 C 35.9 C L Pulse Rate 76 79 79 Respiratory Rate 18 18 20 Blood Pressure 146/54 H 152/61 H 182/60 H Pulse Oximetry 98 98 96 06/02/21 09:17 Temperature Pulse Rate 79 Respiratory Rate Blood Pressure Pulse Oximetry Exam Extrem: Other: Left LE amputation stump appears to be healing well min erythema and no pain to palpation no expressible purulence retained stitches are starting to errode into the skin underlying. Some serous drainage with more rare but some areas of yellowish exudate are seen. Under loop magnification the stitches which were mainly two long running stitches that met in the center were removed. Some minimal bleeding which resolved quickly was seen. No purulent areas were noted. No abcesses palp or identified by other means. Pt tolerated well with min discomfort stable at the end or the procedure. Results Labs Result Diagrams: 06/02/21 05:45 06/02/21 05:45 Labs: Abnormal lab results 06/01/21 06/02/21 06/02/21 Range/Units 15:50 05:45 05:45 WBC 21.0 H (4.5-10.0) K/mm3 RBC 3.18 L (4.2-5.4) M/mm3 Hgb 9.1
--- NOTE | 2021-06-02 13:34 | PM.PNGS ---
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 Karthik diabetic diet s issue. No abd pain, no N/V Review of Systems Review of Systems: All systems reviewed & are unremarkable except as noted in HPI and below Exam Const: General: cooperative, comfortable, no acute distress and ill appearing Nutritional Appearance: obese Orientation/consciousness: patient oriented x3 Resp: Effort & Inspection: normal respiratory effort Auscultation: crackles and diminished lung sounds Cardio: Rate: regular rate Rhythm: regular rhythm GI: Inspection: normal to inspection, Abdominal wall edema and non-distended GI Palp: Yes Soft to palpation, No Tenderness to palpation present (GI), No Guarding due to palpation present (GI) and No Rigid due to palpation Objective Data Vital Signs Vital Signs: Vital Signs - 24 hr 06/01/21 16:00 06/01/21 20:00 06/01/21 22:45 Temperature 36.7 C 36.7 C Pulse Rate 88 82 Respiratory Rate 14 16 Blood Pressure 167/80 H 150/57 H Pulse Oximetry 97 98 98 06/02/21 00:00 06/02/21 04:00 06/02/21 08:00 Temperature 36.1 C L 36.6 C 35.9 C L Pulse Rate 76 79 79 Respiratory Rate 18 18 20 Blood Pressure 146/54 H 152/61 H 182/60 H Pulse Oximetry 98 98 96 06/02/21 09:17 06/02/21 12:00 Temperature 36.9 C Pulse Rate 79 74 Respiratory Rate 18 Blood Pressure 141/54 H Pulse Oximetry 99 Intake/Output Intake/Output: Intake & Output 05/30/21 05/31/21 06/01/21 06/02/21 23:59 23:59 23:59 23:59 Intake Total 5050 3370 1180 Balance 5050 3370 1180 Meds/Results Medications: Active Medications Generic Name Dose Route Start Last Admin Trade Name Jake PRN Reason Stop Dose Admin Hydrocodone Bitart/Acetaminophen 1 tab 06/01/21 10:45 06/01/21 20:58 Hydrocodone/Acetaminophen (*Crx) 5-325 Mg Tablet PO 1 tab Q4H PRN Administration Pain Albuterol 2 puff 06/01/21 10:45 Albuterol Sulfate (*Sp) Aerosol 1 Puff INHALATION Q4H PRN Shortness Of Breath Ascorbic Acid 500 mg 06/02/21 09:00 06/02/21 09:18 Ascorbic Acid 500 Mg Tablet PO 500 mg DAILY GLORY Administration Atorvastatin Calcium 40 mg 06/02/21 09:00 06/02/21 09:17 Atorvastatin 40 Mg Tablet PO 40 mg DAILY GLORY Administration Bisacodyl 5 mg 06/01/21 10:45 Bisacodyl 5 Mg Tablet Ec PO HS PRN Constipation Bumetanide 2 mg 06/02/21 10:30 06/02/21 11:54 Bumetanide Inj 2.5 Mg/10 Ml Vial IV PUSH 2 mg BID GLORY Administration Carvedilol 25 mg 06/01/21 09:00 06/02/21 09:17 Carvedilol 25 Mg Tablet PO 25 mg Q12HR GLORY Administration Clonidine HCl 0.1 mg 06/01/21 13:00 06/02/21 12:13 Clonidine Hcl 0.1 Mg Tablet PO 0.1 mg TID GLORY Administration Dextrose 12.5 gm 05/31/21 10:23 Dextrose 50% 25 Gm/50 Ml Syringe IV PUSH PRN PRN Hypoglycemia Protocol Diltiazem HCl 360 mg 06/02/21 09:00 06/02/21 09:18 Diltiazem Hcl Cd 180 Mg Cap.Er.24h PO 360 mg DAILY GLORY Administration Docusate Sodium 100 mg 06/02/21 09:00 06/02/21 09:19 Docusate Sodium 100 Mg Capsule PO 100 mg DAILY GLORY Administration Ferrous Sulfate 324 mg 06/02/21 09:00 06/02/21 09:18 Ferrous Sulfate 324 Mg Tablet PO 324 mg DAILY GLORY Administration Glucagon 1 mg 05/31/21 10:23 Glucagon For Inj 1 Mg Vial IM PRN PRN Hypoglycemia Protocol Glucose
--- NOTE | 2021-06-02 15:05 | PC.NURSE ---
This nurse was sitting charting at the back nurses station. Around [phone] [employer] assistant came up to me and my graduate nurse to ask about 315. She was asking about why she needed blood cultures and if she was getting IV antibiotics. I explained to her that her next antibiotic was due at 2. I also made it aware to her that she is a COVID pt that also tested pos for cdiff and she was treated for head lice yesterday on the May. She responded and stated I do not have enough time to go home and take a shower. She stared at me and my graduate nurse and then proceeded to walk away. Later around 2 another [employer] assistant came up to me in the break room asking about the same pt. The blood cultures were retimed and the first [employer] assistant told the second [employer] assistant that I told her to not draw the labs until two. This nurse never stated that and is unsure why she did not go into the pt room to draw the 1000 labs that were ordered.
[2021-06-02 17:04] LABS: Glucose Point of Care 110 mg/dl (65-105)
[2021-06-02] MEDS: traZODone HCL 50 MG TABLET 100 MG PO (21:01)
[2021-06-02 21:26] LABS: Glucose Point of Care 116 mg/dl (65-105)
[2021-06-03] VITALS (7 sets, daily range): BP systolic 117–146; BP diastolic 42–54; PULSE 50–63; RESP 16–21; TEMP 35.7–36.6; O2SAT 96–100
--- NOTE | 2021-06-03 | ECHO_ITS ---
Patient Info Name: Piedad Morales Age: 61 years : 1960 Gender: Female Ht: 64 in Wt: 202 lbs BSA: 2.07 m2 HR: 50 bpm BP: 117 / 48 mmHg Heart Rhythm: Sinus Rhythm Technical Quality: Fair Exam Date: 06/03/2021 10:17 AM Exam Location: [facility] Card Pulmonary Patient Status: Inpatient Admit Date: 06/01/2021 Staff Ordering Physician: Amor Crenshaw MD Repeater Chief: Karine Torres RDCS Attending Provider: Michelle Mireles DO Referring Physician: Den SAVAGE; Exam Type: CA echo doppler color flow Study Info Indications - severe volume overload Complete two-dimensional, color flow and Doppler transthoracic echocardiogram is performed. Summary 1. Complete two-dimensional, color flow and Doppler transthoracic echocardiogram is performed. 2. Left ventricular chamber dimension is normal. 3. Left ventricular systolic function is normal, estimated at >70%. 4. There is mild asymmetric septal increased left ventricular wall thickness. 5. The left ventricular diastolic function is normal. 6. Left atrial chamber dimension is mildly enlarged. 7. There is no aortic valve stenosis. 8. There is mild tricuspid valve regurgitation. 9. No pulmonary hypertension, estimated pulmonary arterial systolic pressure is 24 mmHg. 10. Large left pleural effusion. Left Ventricle Left ventricular chamber dimension is normal. Left ventricular systolic function is normal, estimated at >70%. There is mild asymmetric septal increased left ventricular wall thickness. The left ventricular diastolic function is normal. Right Ventricle Right ventricular chamber dimension is normal. Right ventricular systolic function is normal. Left Atria Left atrial chamber dimension is mildly enlarged. Right Atria Right atrial chamber dimension is mildly enlarged. Aortic Valve The aortic valve is probable trileaflet. There is no aortic valve stenosis. There is no aortic valve regurgitation. There is mild aortic valve calcification. Pulmonic Valve The pulmonic valve is not well visualized. Mitral Valve The mitral valve has normal leaflets. There is trace mitral valve regurgitation. Tricuspid Valve The tricuspid valve leaflets are normal. There is mild tricuspid valve regurgitation. No pulmonary hypertension, estimated pulmonary arterial systolic pressure is 24 mmHg. Pericardium/Pleural The pericardium appears normal. There is trivial pericardial effusion. Large left pleural effusion. Aorta The aortic root size at the sinus of Valsalva is normal. There is mild aortic atherosclerosis. Left Ventricular Outflow Tract Name Value Normal LVOT 2D LVOT Diameter 2.0 cm LVOT Doppler LVOT Peak Gradient 8 mmHg LVOT Mean Gradient 3 mmHg LVOT VTI 33 cm LVOT VTI/AV VTI Ratio 0.8 LVOT Stroke Volume 108 ml LVOT CO 5.9 l/min LVOT CI 2.8 l/min/m2 Pulmonic Valve
--- NOTE | 2021-06-03 07:48 | PM.PNNEP ---
Progress Note: A&P Assessment and Plan (1) CKD (chronic kidney disease): Code(s): N18.9 - Chronic kidney disease, unspecified Status: Acute Assessment and Plan: the patient has chronic kidney disease. most likely due to diabetes and hypertension. Hopefully we can get some idea of what her creatinine baseline is. Renal ultrasound shows normal kidney size plus increased echogenicity. Urinalysis is bland. CPK is normal She has 3+ protein on her urinalysis. Urine protein to creatinine ratio has not been collected yet. I will reorder this. Will check an echocardiogram and see with the urine protein shows. The patient has COVID and also C diff colitis, both of which can cause acute on chronic renal insufficiency. at this point she has significant fluid burden. she is on diuretics now. The patient has a pure wick so hopefully we can collect the urine and measure it. Will start IV albumin today. Still waiting for urine protein to creatinine ratio. We ordered it again. Echo is pending The patient also has metabolic acidosis. This is probably from renal failure plus the diarrhea. Anion gap is only 12. Will give bicarb supplements. CO2 pending today (2) Person under investigation for COVID-19: Code(s): Z20.822 - Contact with and (suspected) exposure to COVID-19 Status: Acute Assessment and Plan: the patient is on respiratory isolation. (3) C. difficile colitis: Code(s): A04.72 - Enterocolitis due to Clostridium difficile, not specified as recurrent Status: Acute Assessment and Plan: The patient is on contact / c diff isolation. She is on Flagyl. (4) Anemia: Code(s): D64.9 - Anemia, unspecified Status: Acute Assessment and Plan: Hemoglobin is 9.4. Not low enough to start GYPSY for now. Labs pending for today (5) Hyperkalemia: Code(s): E87.5 - Hyperkalemia Status: Acute Assessment and Plan: the patient is on Kayexalate at home. she is not on this now because of her diarrhea. Perhaps her C diff is keeping her potassium low. this is pending. (6) HTN (hypertension) with goal to be determined: Code(s): I10 - Essential (primary) hypertension Status: Acute Assessment and Plan: Blood pressure is doing pretty well. I think we will just resume her home medications. Pulse is only 50. Will wean clonidine. (7) IDDM (insulin dependent diabetes mellitus): Status: Acute Assessment and Plan: She is on Accu-Cheks and sliding-scale insulin. Subjective Date/time seen: 06/03/21 07:48 Interval history: Patient feels about the same today. no shortness of breath currently. She slept well. She is still very swollen. Exam Narrative: WDWN in NAD skin no rash head ncat lungs clear cor reg no rub orgallop abd BS+ nontender and soft ext Bilateral [id number] amputations. She has 2+ edema up to the umbilicus. this is stable Objective Data Vital Signs Vital Signs: Vital Signs - 24 hr 06/02/21 08:00 06/02/21 09:17 06/02/21 12:00 Temperature 35.9 C L 36.9 C Pulse Rate 79 79 74 Respiratory Rate 20 18 Blood Pressure 182/60 H 141/54 H Pulse Oximetry 96 99 06/02/21 16:00 06/02/21 20:00 06/02/21 21:02 Temperature 36.4 C L 35.9 C L Pulse Rate 60 57 L 60 Respiratory Rate 17 18 Blood Pressure 115/41 L 119/48 L Pulse Oximetry 97 98 06/03/21 00:00 06/03/21 04:00 Temperature 36.2 C L 35.7 C L Pulse Rate 57 L 50 L Respiratory Rate 18 18 Blood Pressure 128/48 L 117/48 L Pulse Oximetry 98 97 Intake/Output Intake/Output: Intake & Output 05/31/21 06/01/21 06/02/21 06/03/21 23:59 23:59 23:59 23:59 Intake Total 5050 3370 1940 190 Balance 5050 3370 1940 190 Meds/Results Medications: Active Medications Generic Name Dose Route Start Last Admin Trade Name Freq PRN Reason Stop Dose Admin Hydrocodone
--- NOTE | 2021-06-03 08:21 | PC.NURSE ---
Attempt to obtained urine specimen per bedpan. Pt complains of bedpan hurting. Small amount of urine obtained. Will attempt again woth nexr void. Pt refuses straight cath for specimen.
[2021-06-03 08:30] LABS: Glucose Point of Care 92 mg/dl (65-105)
[2021-06-03 09:36] LABS: Basophils Percent Auto 0.3 % (0.2-1.2); Eosinophils Absolute Auto 0.2 K/mm3 (0-0.3); Eosinophils Percent Auto 1.6 % (0-4.4); Hematocrit 29.1 % (37.0-47.0); Hemoglobin 9.6 g/dL (12.0-15.0); Immature Granulocyte Absolute 0.49 K/mm3 (0.00-0.031); Immature Granulocyte Percent A 4.4 % (0-0.5); Lymphocytes Absolute Auto 0.92 K/mm3 (0.9-3.2); Lymphocytes Percent Auto 8.3 % (18.3-44.2); Mean Corpuscular Volume 87.9 fl (80-100); Mean Platelet Volume 10.8 fl (7.4-10.4); Monocytes Absolute Auto 0.7 K/mm3 (0.1-0.6); Neutrophils Absolute Auto 8.8 K/mm3 (1.3-6.7); Neutrophils Percent Auto 79.4 % (45.5-73.1); Platelet Count Result 217 k/mm3 (150-375); Red Blood Count 3.31 M/mm3 (4.2-5.4); Red Cell Distribution Width 17.9 % (11.5-14.5); White Blood Count 11.1 K/mm3 (4.5-10.0)
[2021-06-03 09:48] LABS: Alanine Aminotransferase 10 U/L (4-35); Albumin Level 2.3 g/dL (3.5-5.1); Alkaline Phosphatase 113 U/L (38-126); Anion Gap 12 mmol/L (8-16); Aspartate Amino Transferase 20 U/L (14-36); Bilirubin,Total 0.2 mg/dL (0.2-1.3); Blood Urea Nitrogen 76 mg/dL (7-17); Calcium 6.1 mg/dL (8.4-10.2); Carbon Dioxide 10 mmol/L (22-30); Chloride 111 mmol/L (98-107); Estimated CRCL calculation 10 ml/min; Estimated Glomerular Filt Rate 7; Glucose 92 mg/dL (65-110); Potassium 4.2 mmol/L (3.4-5.0); Sodium 133 mmol/L (137-145)
[2021-06-03] MEDS: PANTOPRAZOLE 40 MG TABLET PO ×2 (10:00→20:48)
[2021-06-03] MEDS: cloNIDine HCL 0.1 MG TABLET PO ×2 (10:00→20:48)
[2021-06-03] MEDS: BUMETANIDE INJ 2.5 MG/10 ML VIAL 2 MG IV PUSH ×2 (10:01→18:11)
[2021-06-03] MEDS: dilTIAZem HCL CD 180 MG CAP.ER.24H 360 MG PO (10:01)
[2021-06-03] MEDS: DOCUSATE SODIUM 100 MG CAPSULE PO (10:01)
[2021-06-03] MEDS: ATORVASTATIN 40 MG TABLET PO (10:02)
[2021-06-03] MEDS: ASCORBIC ACID 500 MG TABLET PO (10:02)
[2021-06-03] MEDS: FERROUS SULFATE 324 MG TABLET PO (10:02)
[2021-06-03] MEDS: carvediloL 25 MG TABLET PO ×2 (10:02→20:47)
[2021-06-03] MEDS: ALBUMIN HUMAN 25% 25 GM/100 ML 100 ML IVPB ×3 (10:02→20:47)
[2021-06-03] MEDS: THERAPEUTIC MULTIVITAMINS/MINERALS TAB (*BKC) 1 TABLET PO (10:03)
[2021-06-03 10:07] LABS: Basophils Percent Auto 0.2 % (0.2-1.2); Eosinophils Absolute Auto 0.2 K/mm3 (0-0.3); Eosinophils Percent Auto 1.5 % (0-4.4); Hematocrit 29.1 % (37.0-47.0); Hemoglobin 9.3 g/dL (12.0-15.0); Immature Granulocyte Percent A 4.8 % (0-0.5); Lymphocytes Absolute Auto 0.82 K/mm3 (0.9-3.2); Lymphocytes Percent Auto 7.8 % (18.3-44.2); Mean Corpuscular Hemoglobin 28.5 pg (26-34); Mean Corpuscular Volume 89.3 fl (80-100); Mean Platelet Volume 10.1 fl (7.4-10.4); Monocytes Absolute Auto 0.6 K/mm3 (0.1-0.6); Monocytes Percent Auto 5.8 % (2.6-8.5); Neutrophils Absolute Auto 8.4 K/mm3 (1.3-6.7); Neutrophils Percent Auto 79.9 % (45.5-73.1); Platelet Count Result 196 k/mm3 (150-375); Red Blood Count 3.26 M/mm3 (4.2-5.4); Red Cell Distribution Width 17.6 % (11.5-14.5); White Blood Count 10.5 K/mm3 (4.5-10.0)
[2021-06-03 10:18] LABS: Alanine Aminotransferase 11 U/L (4-35); Albumin Level 2.2 g/dL (3.5-5.1); Alkaline Phosphatase 103 U/L (38-126); Anion Gap 12 mmol/L (8-16); Aspartate Amino Transferase 21 U/L (14-36); Bilirubin,Total 0.3 mg/dL (0.2-1.3); Blood Urea Nitrogen 78 mg/dL (7-17); Calcium 6.1 mg/dL (8.4-10.2); Carbon Dioxide 10 mmol/L (22-30); Chloride 111 mmol/L (98-107); Estimated CRCL calculation 10 ml/min; Estimated Glomerular Filt Rate 7; Glucose 113 mg/dL (65-110); Phosphorus 7.7 mg/dL (2.5-4.5); Potassium 4.4 mmol/L (3.4-5.0); Sodium 133 mmol/L (137-145)
--- NOTE | 2021-06-03 11:27 | PCDIET ---
Patient screened in for pressure ulcer. Per Wound RN notes, pt is not positive for pressure ulcer. Current diet is a diabetic carb consistent diet with reported intake of 100% x3. Pt appears to be tolerating current diet orders with adequate intake. Agree with diet orders at this time. No nutritional needs at this time. No nutritional interventions at this time. Will follow up in 7 days.
--- NOTE | 2021-06-03 11:30 | PM.IMPN ---
Progress Note: A&P Assessment and Plan (1) Bladder wall thickening: Code(s): N32.89 - Other specified disorders of bladder Status: Acute Assessment and Plan: R/o cholecystitis GS consulted, continue current treatment HIDA scan pending (2) Colitis: Code(s): K52.9 - Noninfective gastroenteritis and colitis, unspecified Status: Acute Assessment and Plan: Continue IVF Continue with IV antibiotics I am concerned more on the side of edema than infectious colitis Pending stool study Pending C diff (3) IDDM (insulin dependent diabetes mellitus): Status: Acute Assessment and Plan: Resume home medication (4) HTN (hypertension) with goal to be determined: Code(s): I10 - Essential (primary) hypertension Status: Acute Assessment and Plan: DC IV fluid Adjusted home medication BP Stable at 146/48 (5) C. difficile colitis: Code(s): A04.72 - Enterocolitis due to Clostridium difficile, not specified as recurrent Status: Acute Assessment and Plan: Continue Flagyl for now pending C diff (6) Person under investigation for COVID-19: Code(s): Z20.822 - Contact with and (suspected) exposure to COVID-19 Status: Acute Assessment and Plan: Pt shares room with COVID pts Continue to monitor Denies any symptoms COVID-19 is positive From the sign out patient has positive test at half-way pending records before she came in She remains on room air She is not complaining of a cough, shortness of breath, or covid like symptoms (7) CKD (chronic kidney disease): Code(s): N18.9 - Chronic kidney disease, unspecified Status: Acute Assessment and Plan: Acute on top of chronic renal failure DC IV fluid patient has anasarca urine study was sent nephrology consult CT scan no evidence of hydronephrosis DC IV Lasix and changed to bumex 2mg IV BID Trend labs (8) Anemia: Code(s): D64.9 - Anemia, unspecified Status: Acute Assessment and Plan: Hgb 9.3 Transfuse if <7 Monitor (9) BKA stump complication: Code(s): T87.9 - Unspecified complications of amputation stump Status: Acute Assessment and Plan: Orthopedic consulted May need CT scan of the left stump Has increased drainage, however, is still kind of fresh with it being done about 1 month ago Time Spent With Patient Time with patient: Greater than 35 minutes Subjective Date/time seen: 06/03/21 11:30 Interval history: Date/time seen: 06/02/21 09:33 Interval history: Patient seen and examined Patient presented to the hospital with abdominal pain CT scan shows anasarca concern for colitis cholecystitis surgery was consulted patient was treated with empiric antibiotic has she has significant leukocytosis but also CT scan shows pericardial effusion pleural effusion concern for anasarca Renal function worsened yesterday Edema has improved DC IV Lasix Pending nephrology evaluation Pending ultrasound Pending blood culture Continue IV antibiotics Pending HIDA scan Patient has drainage from the left leg stump patient has a BKA on 05/12/2021 orthopedic was consulted Patient denies fever headache chest pain I am seeing the patient for anasarca Date/Time 06/03/21 11:30 Patient was lying in bed. Patient denied any belly, chest pain. Patient denies any nausea vomiting. Patient does still have diarrhea however she said it is getting better. White blood cell count has also came down to 10.5 today from greater than 20,000 yesterday. Fossa 7.7 today BUN and creatinine are elevated 78/6.20. Review of Systems Review of Systems: All systems reviewed & are unremarkable except as noted in HPI and below Exam Const: General: cooperative, healthy appearing, no acute distress, well developed, alert and awake Nutritional Appearance: well nourished Orientation/consciousness: patient oriented x3 Limitations: no limitations HEN
[2021-06-03 12:12] LABS: Glucose Point of Care 104 mg/dl (65-105)
--- NOTE | 2021-06-03 12:44 | PM.PNGS ---
Progress Note: A&P Assessment and Plan (1) Leukocytosis: Code(s): D72.829 - Elevated white blood cell count, unspecified Status: Acute Assessment and Plan: Continues to improve. Likely secondary to C. Diff. See plan below. 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 No complaints of abd pain. Await HIDA scan results. (3) COVID: Code(s): U07.1 - COVID-19 Status: Acute Assessment and Plan: COVID positive, continue precautions Additional Plan I have discussed the plan of care with Dr. Conway. Subjective Subjective Date/Time Seen: 06/03/21 10:44 Patient reports: no new complaints Interval history: Patient seen and examined. Chart reviewed. No new complaints. Tolerating the diabetic diet well, although NPO since breakfast for HIDA scan. Denies any abdominal pain or nausea. Review of Systems Review of Systems: All systems reviewed & are unremarkable except as noted in HPI and below Exam Const: General: comfortable, no acute distress, alert and awake Orientation/consciousness: patient oriented x3 GI: Inspection: Abdominal wall edema and obesity GI Palp: Yes Soft to palpation, Yes Tenderness to palpation present (GI) (mild TTP epigastric), No Guarding due to palpation present (GI) and No Rebound tenderness present Auscultation: normal bowel sounds Skin: General skin exam: normal color Neuro: General: moves all extremities and no focal motor deficits Speech: normal speech Gait exam (Neuro): Unable to assess gait Psych: Mental Status: mental status grossly normal Insight: Fair insight present (Psych) Objective Data Vital Signs Vital Signs: Vital Signs - 24 hr 06/02/21 16:00 06/02/21 20:00 06/02/21 21:02 Temperature 97.5 F L 96.6 F L Pulse Rate 60 57 L 60 Respiratory Rate 17 18 Blood Pressure 115/41 L 119/48 L Pulse Oximetry 97 98 06/03/21 00:00 06/03/21 04:00 06/03/21 08:00 Temperature 97.2 F L 96.3 F L 97.8 F Pulse Rate 57 L 50 L 52 L Respiratory Rate 18 18 20 Blood Pressure 128/48 L 117/48 L 121/54 L Pulse Oximetry 98 97 96 Intake/Output Intake/Output: Intake & Output 05/31/21 06/01/21 06/02/21 06/03/21 23:59 23:59 23:59 23:59 Intake Total 5050 3370 1940 230 Balance 5050 3370 1940 230 Meds/Results Medications: Active Medications Generic Name Dose Route Start Last Admin Trade Name Freq PRN Reason Stop Dose Admin Hydrocodone Bitart/Acetaminophen 1 tab 06/01/21 10:45 06/01/21 20:58 Hydrocodone/Acetaminophen (*Crx) 5-325 Mg Tablet PO 1 tab Q4H PRN Administration Pain Albuterol 2 puff 06/01/21 10:45 Albuterol Sulfate (*Sp) Aerosol 1 Puff INHALATION Q4H PRN Shortness Of Breath Ascorbic Acid 500 mg 06/02/21 09:00 06/03/21 10:02 Ascorbic Acid 500 Mg Tablet PO 500 mg DAILY GLORY Administration Atorvastatin Calcium 40 mg 06/02/21 09:00 06/03/21 10:02 Atorvastatin 40 Mg Tablet PO 40 mg DAILY GLORY Administration Bisacodyl 5 mg 06/01/21 10:45 Bisacodyl 5 Mg Tablet Ec PO HS PRN Constipation Bumetanide 2 mg 06/02/21 10:30 06/03/21 10:01 Bumetanide Inj 2.5 Mg/10 Ml Vial IV PUSH 2 mg BID GLORY Administration Carvedilol 25 mg 06/01/21 09:00 06/03/21 10:02 Carvedilol 25 Mg Tablet PO 25 mg Q12HR GLORY Administration Clonidine HCl 0.1 mg 06/03/21 09:00 06/03/21 10:00 Clonidine Hcl 0.1 Mg Tablet PO 06/04/21 21:01 0.1 mg Q12HR GLORY Administration Dextrose 12.5 gm 05/31/21 10:23 Dextrose 50% 25 Gm/50 Ml Syringe IV PUSH PRN PRN Hypoglycemia Protocol Diltiazem HCl 360 mg 06/02/21 09:00 06/03/21 10:01 Diltiazem Hcl Cd 180 Mg Cap.Er.24h PO 360 mg DAILY GLORY Administration Docusate Sodium 100 mg 06/02/21 09:00 06/03/21 10:01 Docusate Sodium 100 Mg Capsule PO 100 mg DAILY GLORY Administration Nitin
[2021-06-03 17:31] LABS: Glucose Point of Care 121 mg/dl (65-105)
[2021-06-03] MEDS: SODIUM BICARBONATE TAB 650 MG TABLET 1300 MG PO (18:11)
--- NOTE | 2021-06-03 19:01 | PC.NURSE ---
Left stump noted to be red with clear, yellow weeping. Dr Elena notified. Medical MD to see tomorrow.
[2021-06-03] MEDS: traZODone HCL 50 MG TABLET 100 MG PO (20:48)
[2021-06-03 21:07] LABS: Glucose Point of Care 113 mg/dl (65-105)
[2021-06-04] VITALS (8 sets, daily range): BP systolic 102–148; BP diastolic 40–93; PULSE 49–122; RESP 16–20; TEMP 35.8–36.5; O2SAT 94–100
[2021-06-04] MEDS: ALBUMIN HUMAN 25% 25 GM/100 ML 100 ML IVPB ×3 (03:00→15:13)
[2021-06-04 06:40] LABS: Basophils Percent Auto 0.1 % (0.2-1.2); Eosinophils Absolute Auto 0.2 K/mm3 (0-0.3); Eosinophils Percent Auto 2.9 % (0-4.4); Hematocrit 24.8 % (37.0-47.0); Immature Granulocyte Absolute 0.34 K/mm3 (0.00-0.031); Immature Granulocyte Percent A 4.8 % (0-0.5); Lymphocytes Percent Auto 11.2 % (18.3-44.2); Mean Corpuscular HGB Conc 32.3 g/dl (32-36); Mean Corpuscular Hemoglobin 28.5 pg (26-34); Mean Corpuscular Volume 88.3 fl (80-100); Monocytes Absolute Auto 0.6 K/mm3 (0.1-0.6); Monocytes Percent Auto 8.3 % (2.6-8.5); Neutrophils Absolute Auto 5.2 K/mm3 (1.3-6.7); Neutrophils Percent Auto 72.7 % (45.5-73.1); Platelet Count Result 172 k/mm3 (150-375); Red Blood Count 2.81 M/mm3 (4.2-5.4); Red Cell Distribution Width 17.7 % (11.5-14.5); White Blood Count 7.2 K/mm3 (4.5-10.0)
--- NOTE | 2021-06-04 07:08 | PM.PNNEP ---
Progress Note: A&P Assessment and Plan (1) CKD (chronic kidney disease): Code(s): N18.9 - Chronic kidney disease, unspecified Status: Acute Assessment and Plan: the patient has chronic kidney disease. most likely due to diabetes and hypertension. Hopefully we can get some idea of what her creatinine baseline is. Requests are submitted to her PCP. Renal ultrasound shows normal kidney size plus increased echogenicity. Urinalysis is bland. CPK is normal She has 3+ protein on her urinalysis. Urine protein to creatinine ratio has not been collected yet. I will reorder this. Echo shows no explanation for the swelling. The patient has COVID and also C diff colitis, both of which can cause acute on chronic renal insufficiency. at this point she has significant fluid burden. she is on albumin plus bumetanide. Will add metolazone. The patient also has metabolic acidosis. This is probably from renal failure plus the diarrhea. Anion gap is only 12. Will give bicarb supplements. CO2 still only 10 yesterday (2) Person under investigation for COVID-19: Code(s): Z20.822 - Contact with and (suspected) exposure to COVID-19 Status: Acute Assessment and Plan: the patient is on respiratory isolation. (3) C. difficile colitis: Code(s): A04.72 - Enterocolitis due to Clostridium difficile, not specified as recurrent Status: Acute Assessment and Plan: The patient is on contact / c diff isolation. She is on Flagyl. (4) Anemia: Code(s): D64.9 - Anemia, unspecified Status: Acute Assessment and Plan: Hemoglobin is 9.4. Not low enough to start GYPSY for now. Labs pending for today (5) Hyperkalemia: Code(s): E87.5 - Hyperkalemia Status: Acute Assessment and Plan: the patient is on Kayexalate at home. she is not on this now because of her diarrhea. Perhaps her C diff is keeping her potassium low. this is pending. (6) HTN (hypertension) with goal to be determined: Code(s): I10 - Essential (primary) hypertension Status: Acute Assessment and Plan: Blood pressure is doing pretty well. I think we will just resume her home medications. Pulse is only 50. Will wean clonidine. (7) IDDM (insulin dependent diabetes mellitus): Status: Acute Assessment and Plan: She is on Accu-Cheks and sliding-scale insulin. Subjective Date/time seen: 06/04/21 07:08 Interval history: Patient feels about the same today. She denies any problems breathing. She is still swollen. She does not think she is making much more urine. Exam Narrative: WDWN in NAD skin no rash head ncat lungs clear bilaterally cor reg no rub orgallop abd BS+ nontender and soft ext Bilateral [id number] amputations. She has 2+ edema up to the umbilicus. this is stable Objective Data Vital Signs Vital Signs: Vital Signs - 24 hr 06/03/21 08:00 06/03/21 12:00 06/03/21 16:00 Temperature 36.6 C 36.4 C L 35.9 C L Pulse Rate 52 L 63 57 L Respiratory Rate 20 20 21 H Blood Pressure 121/54 L 146/48 H 122/42 L Pulse Oximetry 96 100 96 06/03/21 20:00 06/03/21 20:47 06/04/21 00:00 Temperature 36.0 C L 35.8 C L Pulse Rate 54 L 54 L 58 L Respiratory Rate 16 18 Blood Pressure 117/54 L 137/50 L Pulse Oximetry 99 99 06/04/21 04:00 Temperature 36.1 C L Pulse Rate 51 L Respiratory Rate 16 Blood Pressure 124/44 L Pulse Oximetry 100 Intake/Output Intake/Output: Intake & Output 06/01/21 06/02/21 06/03/21 06/04/21 23:59 23:59 23:59 23:59 Intake Total 3370 1940 1370 150 Output Total 0 Balance 3370 1940 1370 150 Meds/Results Medications: Active Medications Generic Name Dose Route Start Last Admin Trade Name Freq PRN Reason Stop Dose Admin Hydrocodone Bitart/Acetaminophen 1 tab 06/01/21 10:45 06/01/21 20:58 Hydrocodone/Acetaminophen (*Crx) 5-325 Mg Tablet
[2021-06-04 07:16] LABS: Albumin Level 2.5 g/dL (3.5-5.1); Anion Gap 14 mmol/L (8-16); Blood Urea Nitrogen 79 mg/dL (7-17); Calcium 5.9 mg/dL (8.4-10.2); Carbon Dioxide 9 mmol/L (22-30); Chloride 112 mmol/L (98-107); Estimated CRCL calculation 10 ml/min; Estimated Glomerular Filt Rate 7; Glucose 94 mg/dL (65-110); Magnesium 0.8 mg/dL (1.6-2.3); Phosphorus 7.6 mg/dL (2.5-4.5); Potassium 4.4 mmol/L (3.4-5.0); Sodium 135 mmol/L (137-145)
[2021-06-04 07:54] LABS: Alanine Aminotransferase 7 U/L (4-35); Albumin Level 2.6 g/dL (3.5-5.1); Alkaline Phosphatase 80 U/L (38-126); Anion Gap 12 mmol/L (8-16); Aspartate Amino Transferase 16 U/L (14-36); Bilirubin,Total 0.4 mg/dL (0.2-1.3); Blood Urea Nitrogen 77 mg/dL (7-17); Carbon Dioxide 10 mmol/L (22-30); Chloride 112 mmol/L (98-107); Estimated CRCL calculation 10 ml/min; Estimated Glomerular Filt Rate 7; Glucose 92 mg/dL (65-110); Potassium 4.5 mmol/L (3.4-5.0); Sodium 134 mmol/L (137-145)
[2021-06-04 08:14] LABS: Glucose Point of Care 96 mg/dl (65-105)
[2021-06-04] MEDS: metroNIDAZOLE 500 MG/ISO 100ML 500 MG/100 ML BAG 100 MG IVPB (08:24)
--- NOTE | 2021-06-04 08:39 | PM.PNORT ---
Progress Note: A&P Additional Plan cellulitis at inf lat corner of left amp stump closure Soaks- 20 min warm normal saline and dilute (about 1/10) H2O2 TID Dry sterile dressing ID to see as pt has C. Diff ATBs management for this infection CRP, WBC, ESR Subjective Subjective Date/Time Seen: 06/04/21 08:39 Interval history: Left amputation stump 2 days s/p removal of retained suture with serous drainage from distal lat corner of incision Exam Extrem: Other: left stump incision with clear yellow exudate some more induration of surrounding skin mild tenderness to palp c/w the amount noted at stitch removal no sinus tract or ascending lymphangitis. Objective Data Vital Signs Vital Signs: Vital Signs - 24 hr 06/03/21 12:00 06/03/21 16:00 06/03/21 20:00 Temperature 36.4 C L 35.9 C L 36.0 C L Pulse Rate 63 57 L 54 L Respiratory Rate 20 21 H 16 Blood Pressure 146/48 H 122/42 L 117/54 L Pulse Oximetry 100 96 99 06/03/21 20:47 06/04/21 00:00 06/04/21 04:00 Temperature 35.8 C L 36.1 C L Pulse Rate 54 L 58 L 51 L Respiratory Rate 18 16 Blood Pressure 137/50 L 124/44 L Pulse Oximetry 99 100 Intake/Output Intake/Output: Intake & Output 06/01/21 06/02/21 06/03/21 06/04/21 23:59 23:59 23:59 23:59 Intake Total 3370 1940 1370 250 Output Total 0 Balance 3370 1940 1370 250 Meds/Results Medications: Active Medications Generic Name Dose Route Start Last Admin Trade Name Freq PRN Reason Stop Dose Admin Hydrocodone Bitart/Acetaminophen 1 tab 06/01/21 10:45 06/01/21 20:58 Hydrocodone/Acetaminophen (*Crx) 5-325 Mg Tablet PO 1 tab Q4H PRN Administration Pain Albuterol 2 puff 06/01/21 10:45 Albuterol Sulfate (*Sp) Aerosol 1 Puff INHALATION Q4H PRN Shortness Of Breath Ascorbic Acid 500 mg 06/02/21 09:00 06/03/21 10:02 Ascorbic Acid 500 Mg Tablet PO 500 mg DAILY GLORY Administration Atorvastatin Calcium 40 mg 06/02/21 09:00 06/03/21 10:02 Atorvastatin 40 Mg Tablet PO 40 mg DAILY GLORY Administration Bisacodyl 5 mg 06/01/21 10:45 Bisacodyl 5 Mg Tablet Ec PO HS PRN Constipation Bumetanide 2 mg 06/02/21 10:30 06/03/21 18:11 Bumetanide Inj 2.5 Mg/10 Ml Vial IV PUSH 2 mg BID GLORY Administration Carvedilol 25 mg 06/01/21 09:00 06/03/21 20:47 Carvedilol 25 Mg Tablet PO 25 mg Q12HR GLORY Administration Clonidine HCl 0.1 mg 06/03/21 09:00 06/03/21 20:48 Clonidine Hcl 0.1 Mg Tablet PO 06/04/21 21:01 0.1 mg Q12HR GLORY Administration Dextrose 12.5 gm 05/31/21 10:23 Dextrose 50% 25 Gm/50 Ml Syringe IV PUSH PRN PRN Hypoglycemia Protocol Diltiazem HCl 360 mg 06/02/21 09:00 06/03/21 10:01 Diltiazem Hcl Cd 180 Mg Cap.Er.24h PO 360 mg DAILY GLORY Administration Docusate Sodium 100 mg 06/02/21 09:00 06/03/21 10:01 Docusate Sodium 100 Mg Capsule PO 100 mg DAILY GLORY Administration Ferrous Sulfate 324 mg 06/02/21 09:00 06/03/21 10:02 Ferrous Sulfate 324 Mg Tablet PO 324 mg DAILY GLORY Administration Glucagon 1 mg 05/31/21 10:23 Glucagon For Inj 1 Mg Vial IM PRN PRN Hypoglycemia Protocol Glucose 15 gm 05/31/21 10:23 Glucose Oral Gel 15 Gm Of Glucse In 37.5 Gm Tube PO PRN PRN Hypoglycemia Protocol Hydralazine HCl 12.5 mg/ 37.5 mg 06/02/21 17:00 06/03/21 18:11 Hydralazine HCl 25 mg PO 37.5 mg TID GLORY Administration Metronidazole 500 mg in 100 mls @ 100 mls/hr 05/31/21 14:00 06/04/21 08:04 Flagyl 500 Mg/Iso Soln 100 Ml IVPB Not Given Q8HR GLORY Dextrose 1,000 mls @ 100 mls/hr 05/31/21 10:23 Dextrose 5% 1,000 Ml IVPB PRN PRN Hypoglycemia Protocol Albumin Human 100 mls @ 60 mls/hr 06/03/21 09:00 06/04/21 08:06 Albutein IVPB 06/06/21 04:39 Infused Q6H GLORY Infusion Morphine Sulfate 4 mg 05/31/21 06:12 06/02/21 12:14 Morphine Sulfate (*Crx) 4 Mg/Ml Inj IV PUSH 4 mg Q2H PRN
[2021-06-04] MEDS: PANTOPRAZOLE 40 MG TABLET PO ×2 (08:41→21:16)
[2021-06-04] MEDS: DOCUSATE SODIUM 100 MG CAPSULE PO (08:41)
[2021-06-04] MEDS: SODIUM BICARBONATE TAB 650 MG TABLET 1300 MG PO (08:42)
[2021-06-04] MEDS: THERAPEUTIC MULTIVITAMINS/MINERALS TAB (*BKC) 1 TABLET PO (08:43)
[2021-06-04] MEDS: cloNIDine HCL 0.1 MG TABLET PO ×2 (08:43→21:18)
[2021-06-04] MEDS: dilTIAZem HCL CD 180 MG CAP.ER.24H 360 MG PO (08:43)
[2021-06-04] MEDS: FERROUS SULFATE 324 MG TABLET PO (08:44)
[2021-06-04] MEDS: carvediloL 25 MG TABLET PO ×2 (08:45→21:18)
[2021-06-04] MEDS: ASCORBIC ACID 500 MG TABLET PO (08:45)
[2021-06-04] MEDS: ATORVASTATIN 40 MG TABLET PO (08:45)
[2021-06-04] MEDS: BUMETANIDE INJ 2.5 MG/10 ML VIAL 2 MG IV PUSH (08:47)
[2021-06-04 09:46] LABS: Erythrocyte Sedimentation Rate 22 mm/hr (0-20)
[2021-06-04 10:26] LABS: White Blood Count 7.2 K/mm3 (4.5-10.0)
--- NOTE | 2021-06-04 12:00 | PM.IMPN ---
Progress Note: A&P Assessment and Plan (1) Bladder wall thickening: Code(s): N32.89 - Other specified disorders of bladder Status: Acute Assessment and Plan: R/o cholecystitis GS consulted, continue current treatment HIDA scan showed no activity (2) Colitis: Code(s): K52.9 - Noninfective gastroenteritis and colitis, unspecified Status: Acute Assessment and Plan: Continue IVF Continue with IV antibiotics I am concerned more on the side of edema than infectious colitis Stool study found no growth C diff positive (3) IDDM (insulin dependent diabetes mellitus): Status: Acute Assessment and Plan: Resume home medication (4) HTN (hypertension) with goal to be determined: Code(s): I10 - Essential (primary) hypertension Status: Acute Assessment and Plan: DC IV fluid Adjusted home medication BP Stable at 124/44 (5) C. difficile colitis: Code(s): A04.72 - Enterocolitis due to Clostridium difficile, not specified as recurrent Status: Acute Assessment and Plan: C diff is positive Change flagyl to PO vanco Diarrhea has slowed down (6) CKD (chronic kidney disease): Code(s): N18.9 - Chronic kidney disease, unspecified Status: Acute Assessment and Plan: Acute on top of chronic renal failure DC IV fluid patient has anasarca urine study was sent nephrology consult CT scan no evidence of hydronephrosis DC IV Lasix and changed to bumex 2mg IV BID Trend labs (7) Anemia: Code(s): D64.9 - Anemia, unspecified Status: Acute Assessment and Plan: Hgb 9.3 Transfuse if <7 Monitor (8) BKA stump complication: Code(s): T87.9 - Unspecified complications of amputation stump Status: Acute Assessment and Plan: Orthopedic consulted May need CT scan of the left stump Has increased drainage, however, is still kind of fresh with it being done about 1 month ago Stump on the left does have a open section that does not seem to be infected Wound care re-evaluated wound and put orders in for wound gel, ABD, and julia bandage to shrink the wound and prevent further infection Continue to monitor (9) COVID-19: Code(s): U07.1 - COVID-19 Status: Acute Assessment and Plan: Pt shares room with COVID pts Continue to monitor Denies any symptoms COVID-19 is positive From the sign out patient has positive test at halfway pending records before she came in She remains on room air She is not complaining of a cough, shortness of breath, or covid like symptoms Without any respiratory deficit I would say that this is a current finding without PNA Time Spent With Patient Time with patient: Greater than 35 minutes Subjective Date/time seen: 06/04/21 14:03 Interval history: Date/time seen: 06/02/21 09:33 Interval history: Patient seen and examined Patient presented to the hospital with abdominal pain CT scan shows anasarca concern for colitis cholecystitis surgery was consulted patient was treated with empiric antibiotic has she has significant leukocytosis but also CT scan shows pericardial effusion pleural effusion concern for anasarca Renal function worsened yesterday Edema has improved DC IV Lasix Pending nephrology evaluation Pending ultrasound Pending blood culture Continue IV antibiotics Pending HIDA scan Patient has drainage from the left leg stump patient has a BKA on 05/12/2021 orthopedic was consulted Patient denies fever headache chest pain I am seeing the patient for anasarca Date/Time 06/03/21 11:30 Patient was lying in bed. Patient denied any belly, chest pain. Patient denies any nausea vomiting. Patient does still have diarrhea however she said it is getting better. White blood cell count has also came down to 10.5 today from greater than 20,000 yesterday. Fossa 7.7 today BUN and creatinine are elevated 78/6.20. Review of Syste
[2021-06-04 12:13] LABS: Glucose Point of Care 104 mg/dl (65-105)
--- NOTE | 2021-06-04 12:48 | PM.PNGS ---
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 Status: Acute Assessment and Plan: HIDA scan reviewed, exam benign, parish diet, GB edema likely secondary to fluid overload, anasarca, leukocytosis resolved, no acute surgical issues, will sign off, call c ?s, issues Subjective Subjective Date/Time Seen: 06/04/21 12:48 no acute issues, parish diet, no abd pain, no N/V Review of Systems Review of Systems: All systems reviewed & are unremarkable except as noted in HPI and below Exam Const: General: cooperative, comfortable and no acute distress Resp: Auscultation: crackles and diminished lung sounds Cardio: Rate: regular rate Rhythm: regular rhythm GI: Inspection: normal to inspection, Abdominal wall edema and non-distended GI Palp: Yes Soft to palpation, No Tenderness to palpation present (GI), No Guarding due to palpation present (GI) and No Rigid due to palpation Objective Data Vital Signs Vital Signs: Vital Signs - 24 hr 06/03/21 16:00 06/03/21 20:00 06/03/21 20:47 Temperature 35.9 C L 36.0 C L Pulse Rate 57 L 54 L 54 L Respiratory Rate 21 H 16 Blood Pressure 122/42 L 117/54 L Pulse Oximetry 96 99 06/04/21 00:00 06/04/21 04:00 06/04/21 08:45 Temperature 35.8 C L 36.1 C L Pulse Rate 58 L 51 L 60 Respiratory Rate 18 16 Blood Pressure 137/50 L 124/44 L Pulse Oximetry 99 100 Intake/Output Intake/Output: Intake & Output 06/01/21 06/02/21 06/03/21 06/04/21 23:59 23:59 23:59 23:59 Intake Total 3370 1940 1370 610 Output Total 250 Balance 3370 1940 1370 360 Meds/Results Medications: Active Medications Generic Name Dose Route Start Last Admin Trade Name Freq PRN Reason Stop Dose Admin Hydrocodone Bitart/Acetaminophen 1 tab 06/01/21 10:45 06/01/21 20:58 Hydrocodone/Acetaminophen (*Crx) 5-325 Mg Tablet PO 1 tab Q4H PRN Administration Pain Albuterol 2 puff 06/01/21 10:45 Albuterol Sulfate (*Sp) Aerosol 1 Puff INHALATION Q4H PRN Shortness Of Breath Ascorbic Acid 500 mg 06/02/21 09:00 06/04/21 08:45 Ascorbic Acid 500 Mg Tablet PO 500 mg DAILY GLORY Administration Atorvastatin Calcium 40 mg 06/02/21 09:00 06/04/21 08:45 Atorvastatin 40 Mg Tablet PO 40 mg DAILY GLORY Administration Bisacodyl 5 mg 06/01/21 10:45 Bisacodyl 5 Mg Tablet Ec PO HS PRN Constipation Bumetanide 2 mg 06/02/21 10:30 06/04/21 08:47 Bumetanide Inj 2.5 Mg/10 Ml Vial IV PUSH 2 mg BID GLORY Administration Carvedilol 25 mg 06/01/21 09:00 06/04/21 08:45 Carvedilol 25 Mg Tablet PO 25 mg Q12HR GLORY Administration Clonidine HCl 0.1 mg 06/03/21 09:00 06/04/21 08:43 Clonidine Hcl 0.1 Mg Tablet PO 06/04/21 21:01 0.1 mg Q12HR GLORY Administration Dextrose 12.5 gm 05/31/21 10:23 Dextrose 50% 25 Gm/50 Ml Syringe IV PUSH PRN PRN Hypoglycemia Protocol Diltiazem HCl 360 mg 06/02/21 09:00 06/04/21 08:43 Diltiazem Hcl Cd 180 Mg Cap.Er.24h PO 360 mg DAILY GLORY Administration Docusate Sodium 100 mg 06/02/21 09:00 06/04/21 08:41 Docusate Sodium 100 Mg Capsule PO 100 mg DAILY GLORY Administration Ferrous Sulfate 324 mg 06/02/21 09:00 06/04/21 08:44 Ferrous Sulfate 324 Mg Tablet PO 324 mg DAILY GLORY Administration Glucagon 1 mg 05/31/21 10:23 Glucagon For Inj 1 Mg Vial IM PRN PRN Hypoglycemia Protocol Glucose 15 gm 05/31/21 10:23 Glucose Oral Gel 15 Gm Of Glucse In 37.5 Gm Tube PO PRN PRN Hypoglycemia Protocol Hydralazine HCl 12.5 mg/ 37.5 mg 06/02/21 17:00 06/04/21 08:42 Hydralazine HCl 25 mg PO 37.5 mg TID GLORY Administration Metronidazole 500 mg in 100 mls @ 100 mls/hr 05/31/21 14:00 06/04/21 11:56 Flagyl 500 Mg/Iso Soln 100 Ml IVPB Infused Q8HR GLORY Infusion Dextrose 1,000 mls @ 100 mls/hr 05/31/21 10:23 Dextrose 5% 1,000
[2021-06-04] MEDS: SILVERGEL (ELTA) 45 ML 1 APPLIC TOPICAL (13:08)
[2021-06-04] MEDS: LORazepam INJ (*CRX) 2 MG/ML VIAL 1 MG IV PUSH (15:20)
[2021-06-04] MEDS: MORPHINE SULFATE (*CRX) 4 MG/ML INJ IV PUSH (16:00)
--- NOTE | 2021-06-04 16:05 | WPDURCON ---
Assessment and Plan Assessment and plan (1) Difficulty with insertion of urinary catheter: Status: Acute Assessment and Plan: A 16fr straight thomas catheter was placed with moderate difficulty, d/t her contracted legs, confusion and combativeness. I was unable to visualize the urethral meatus d/t body habitus and patient resistance, therefore, I had to place the thomas by anatomical examination only. Ok to remove thomas when no longer needed. Send urine for culture, 270cc of cloudy, yellow urine on return draining to gravity. Urology Consult Note HPI Date Seen: 06/04/21 Requesting Physician: Michelle Mireles DO Primary Care Provider: PHYSICIAN NOT ON STAFF Consult Narrative Narrative: Piedad Morales is a 61 year old female who presented to the ED for facial swelling, left upper extremity edema and abdominal pain. She has a history of IDDM, HTN, hyperlipidemia, GERD and CKD. She resides in a [place] and is a very poor historian. She is COVID positive but is asymptomatic. We were consulted to place a thomas s/p 3 difficult attempts at a catheter insertion to monitor I&O's. She had a CT scan on 05/31/2021 that reveals anasarca of unknown origin but was urologically normal. She then had a NERI on 06/02/2021 which was also urologically normal. Creatinine is 6.10, her baseline is >5 with CKD. WBC is normal. She is combative and confused. Review of Systems Review of Systems: ROS unobtainable: Yes unobtainable due to mental status PMFSH Past Medical History Medical History Hyperkalemia Social History Social History Smoking status: Former smoker Tobacco type: cigarettes Second hand tobacco smoke exposure: No Alcohol intake: never Substance use: never Gender identity (if verbalized by the patient): Female Sexual Orientation (if Verbalized by the Patient): Straight or Heterosexual Spiritual care concerns: No Meds Home Medications and Allergies Home Medications Medication Instructions Recorded Confirmed Type albuterol sulfate 2 puff INHALATION Q4H PRN 05/31/21 05/31/21 History ascorbic acid (vitamin C) 500 mg PO DAILY 05/31/21 05/31/21 History atorvastatin 40 mg PO DAILY 05/31/21 05/31/21 History bisacodyl 5 mg PO HS PRN 05/31/21 05/31/21 History carvedilol 25 mg PO BID 05/31/21 05/31/21 History clonidine HCl 0.3 mg PO TID 05/31/21 05/31/21 History diltiazem HCl 360 mg PO DAILY 05/31/21 05/31/21 History docusate sodium [DOK] 100 mg PO DAILY 05/31/21 05/31/21 History doxazosin 8 mg PO HS 05/31/21 05/31/21 History ferrous sulfate 325 mg PO DAILY 05/31/21 05/31/21 History hydrocodone-acetaminophen 1 tablet PO Q4H PRN 05/31/21 05/31/21 History insulin glargine [Lantus Solostar 10 unit SUBCUT HS 05/31/21 05/31/21 History U-100 Insulin] isosorbide-hydralazine [BiDil] 1 tablet PO TID 05/31/21 05/31/21 History minoxidil 5 mg PO DAILY 05/31/21 05/31/21 History multivitamin with minerals [Daily 1 tablet PO DAILY 05/31/21 05/31/21 History Multivitamin-Minerals] omeprazole 40 mg PO DAILY 05/31/21 05/31/21 History sodium polystyrene sulfonate 30 g PO DAILY 05/31/21 05/31/21 History trazodone 100 mg PO HS 05/31/21 05/31/21 History Allergies Allergy/AdvReac Type Severity Reaction Status Date / Time No Known Allergies Allergy Verified 05/31/21 02:17 Vital Signs Vital Signs - 24 hr 06/03/21 20:00 06/03/21 20:47 06/04/21 00:00 Temperature 96.8 F L 96.5 F L Pulse Rate 54 L 54 L 58 L Respiratory Rate 16 18 Blood Pressure 117/54 L 137/50 L Pulse Oximetry 99 99 06/04/21 04:00 06/04/21 08:00 06/04/21 08:45 Temperature 97.0 F L 97.7 F Pulse Rate 51 L 60 60 Respiratory Rate 16 18 Blood Pressure 124/44 L 148/52 H Pulse Oximetry 100 94 06/04/21 12:00 Temperature 97.3 F L Pulse Rate 122 H Respiratory Rate 19 Blood Pressure 145/93 H Pulse Oximetry 100 Exam Resp: Effort
[2021-06-04 17:37] LABS: Add Urine Microscopic? YES; Amorphous Sediment Urine Few; Appearance Urine Cloudy (Clear); Bacteria Urine Trace /hpf; Bilirubin Urine Negative (Negative); Blood Urine Negative (Negative); Budding Yeast Urine Present /hpf; Color Urine Yellow (Yellow); Glucose Urine UA Negative (Negative); Ketones Urine Negative (Negative); Leukocyte Esterase Ur 3+ LEU/UL (Negative); Mucus Urine Rare /lpf; Nitrate Urine Negative (Negative); Protein Urine 2+ mg/dL (Negative); RBC Urine 21-50 /hpf (0-2); Specific Grav Ur 1.011 (1.001-1.035); Squamous Epithelial Cell Urine Many /hpf (Few); Urobilinogen Urine Negative mg/dL (<2.0); WBC Urine >75 /hpf
[2021-06-04 19:59] LABS: Creatinine Urine 37.5 mg/dL; Potassium Urine Random 19.5 meq/L; Sodium Urine Random 76 meq/L
[2021-06-04 20:39] LABS: Total Protein Urine Random > 200 mg/dL; Ur Ttl Prot Creatinine Ratio 5.33 mg/mg (0-0.20)
[2021-06-04 20:40] LABS: Total Protein Urine Random 288 mg/dL
[2021-06-04 21:10] LABS: Glucose Point of Care 115 mg/dl (65-105)
[2021-06-04] MEDS: VANCOMYCIN ORAL 125 MG/2.5 ML SYRUP PO (21:15)
[2021-06-04 22:52] LABS: Glucose Point of Care 117 mg/dl (65-105)
[2021-06-05] VITALS (9 sets, daily range): BP systolic 142–173; BP diastolic 51–67; PULSE 51–80; RESP 16–20; TEMP 35.5–36.2; O2SAT 95–99
[2021-06-05] MEDS: VANCOMYCIN ORAL 125 MG/2.5 ML SYRUP PO ×4 (02:10→20:54)
[2021-06-05] MEDS: ALBUMIN HUMAN 25% 25 GM/100 ML 100 ML IVPB ×4 (02:12→20:54)
[2021-06-05 07:01] LABS: Albumin Level 2.7 g/dL (3.5-5.1); Anion Gap 15 mmol/L (8-16); Blood Urea Nitrogen 79 mg/dL (7-17); Carbon Dioxide 9 mmol/L (22-30); Chloride 110 mmol/L (98-107); Estimated CRCL calculation 10 ml/min; Estimated Glomerular Filt Rate 7; Glucose 92 mg/dL (65-110); Magnesium 1.2 mg/dL (1.6-2.3); Phosphorus 7.5 mg/dL (2.5-4.5); Potassium 4.5 mmol/L (3.4-5.0); Sodium 134 mmol/L (137-145)
[2021-06-05 08:30] LABS: Glucose Point of Care 93 mg/dl (65-105)
[2021-06-05] MEDS: MAGNESIUM SULF 4 GM/WATER100ML 4 GM/100 ML BAG IVPB (08:32)
[2021-06-05] MEDS: BUMETANIDE INJ 2.5 MG/10 ML VIAL 2 MG IV PUSH ×2 (08:43→16:56)
[2021-06-05] MEDS: FERROUS SULFATE 324 MG TABLET PO (08:44)
[2021-06-05] MEDS: ATORVASTATIN 40 MG TABLET PO (08:44)
[2021-06-05] MEDS: THERAPEUTIC MULTIVITAMINS/MINERALS TAB (*BKC) 1 TABLET PO (08:44)
[2021-06-05] MEDS: DOCUSATE SODIUM 100 MG CAPSULE PO (08:44)
[2021-06-05] MEDS: PANTOPRAZOLE 40 MG TABLET PO ×2 (08:44→20:54)
[2021-06-05] MEDS: ASCORBIC ACID 500 MG TABLET PO (08:44)
[2021-06-05] MEDS: dilTIAZem HCL CD 180 MG CAP.ER.24H 360 MG PO (08:44)
[2021-06-05] MEDS: carvediloL 25 MG TABLET PO ×2 (08:45→20:53)
[2021-06-05] MEDS: SODIUM BICARBONATE TAB 650 MG TABLET 1300 MG PO ×2 (08:45→16:56)
[2021-06-05] MEDS: SILVERGEL (ELTA) 45 ML 1 APPLIC TOPICAL (08:45)
[2021-06-05 09:48] LABS: Hematocrit 27.5 % (37.0-47.0); Hemoglobin 8.5 g/dL (12.0-15.0); Mean Corpuscular HGB Conc 30.9 g/dl (32-36); Mean Corpuscular Hemoglobin 28.6 pg (26-34); Mean Corpuscular Volume 92.6 fl (80-100); Mean Platelet Volume 9.9 fl (7.4-10.4); Platelet Count Result 181 k/mm3 (150-375); Red Blood Count 2.97 M/mm3 (4.2-5.4); Red Cell Distribution Width 17.8 % (11.5-14.5); White Blood Count 8.3 K/mm3 (4.5-10.0)
[2021-06-05 09:59] LABS: Alanine Aminotransferase 7 U/L (4-35); Albumin Level 2.8 g/dL (3.5-5.1); Alkaline Phosphatase 100 U/L (38-126); Aspartate Amino Transferase 17 U/L (14-36); Bilirubin,Total 0.2 mg/dL (0.2-1.3)
--- NOTE | 2021-06-05 10:00 | PM.IMPN ---
Progress Note: A&P Assessment and Plan (1) Bladder wall thickening: Code(s): N32.89 - Other specified disorders of bladder Status: Acute Assessment and Plan: R/o cholecystitis GS consulted, continue current treatment HIDA scan showed no activity Tolerating diet No further episodes needed (2) Colitis: Code(s): K52.9 - Noninfective gastroenteritis and colitis, unspecified Status: Acute Assessment and Plan: Continue IVF Continue with IV antibiotics I am concerned more on the side of edema than infectious colitis Stool study found no growth C diff positive (3) IDDM (insulin dependent diabetes mellitus): Status: Acute Assessment and Plan: Resume home medication (4) HTN (hypertension) with goal to be determined: Code(s): I10 - Essential (primary) hypertension Status: Acute Assessment and Plan: DC IV fluid Adjusted home medication BP Stable at 124/44 (5) C. difficile colitis: Code(s): A04.72 - Enterocolitis due to Clostridium difficile, not specified as recurrent Status: Acute Assessment and Plan: C diff is positive Change flagyl to PO vanco Diarrhea has slowed down (6) CKD (chronic kidney disease): Code(s): N18.9 - Chronic kidney disease, unspecified Status: Acute Assessment and Plan: Acute on top of chronic renal failure DC IV fluid patient has anasarca urine study was sent nephrology consult CT scan no evidence of hydronephrosis DC IV Lasix and changed to bumex 2mg IV BID Trend labs (7) Anemia: Code(s): D64.9 - Anemia, unspecified Status: Acute Assessment and Plan: Hgb 8.5 Transfuse if <7 Monitor (8) BKA stump complication: Code(s): T87.9 - Unspecified complications of amputation stump Status: Acute Assessment and Plan: Orthopedic consulted May need CT scan of the left stump Has increased drainage, however, is still kind of fresh with it being done about 1 month ago Stump on the left does have a open section that does not seem to be infected Wound care re-evaluated wound and put orders in for wound gel, ABD, and julia bandage to shrink the wound and prevent further infection Continue to monitor (9) COVID-19: Code(s): U07.1 - COVID-19 Status: Acute Assessment and Plan: Pt shares room with COVID pts Continue to monitor Denies any symptoms COVID-19 is positive She remains on room air She is not complaining of a cough, shortness of breath, or covid like symptoms Without any respiratory deficit I would say that this is a current finding without PNA Time Spent With Patient Time with patient: Greater than 35 minutes Subjective Date/time seen: 06/05/21 15:52 Interval history: Interval history: Date/time seen: 06/02/21 09:33 Interval history: Patient seen and examined Patient presented to the hospital with abdominal pain CT scan shows anasarca concern for colitis cholecystitis surgery was consulted patient was treated with empiric antibiotic has she has significant leukocytosis but also CT scan shows pericardial effusion pleural effusion concern for anasarca Renal function worsened yesterday Edema has improved DC IV Lasix Pending nephrology evaluation Pending ultrasound Pending blood culture Continue IV antibiotics Pending HIDA scan Patient has drainage from the left leg stump patient has a BKA on 05/12/2021 orthopedic was consulted Patient denies fever headache chest pain I am seeing the patient for anasarca Date/Time 06/03/21 11:30 Patient was lying in bed. Patient denied any belly, chest pain. Patient denies any nausea vomiting. Patient does still have diarrhea however she said it is getting better. White blood cell count has also came down to 10.5 today from greater than 20,000 yesterday. Fossa 7.7 today BUN and creatinine are elevated 78/6.20. Date/Time 06/04/21 1403 Patient is doing ok tod
[2021-06-05 10:15] LABS: Band Neutrophils Percent 3 % (0-6); Eosinophils Absolute Manual 0.08 K/mm3 (0.02-0.5); Eosinophils Percent Manual 1 % (0-4); Lymphocytes Absolute Manual 0.49 K/mm3 (1.1-4.5); Metamyelocytes Percent 1 %; Monocytes Absolute Manual 0.33 K/mm3 (0.1-0.90); Monocytes Percent Manual 4 % (3-9); Neutrophils Percent Manual 85 % (46-73); Platelet Estimate Adequate (Adequate); Total Cells Counted 100
[2021-06-05 10:16] LABS: Acanthocytes 1+ (NORMAL); Schistocytes 1+ (NORMAL)
[2021-06-05 10:20] LABS: Crenated RBC 1+ (NORMAL); Ovalocytes 1+ (NORMAL)
[2021-06-05 12:06] LABS: Glucose Point of Care 90 mg/dl (65-105)
--- NOTE | 2021-06-05 13:21 | PM.PNNEP ---
Progress Note: A&P Assessment and Plan (1) CKD (chronic kidney disease): Code(s): N18.9 - Chronic kidney disease, unspecified Status: Acute Assessment and Plan: the patient has chronic kidney disease. most likely due to diabetes and hypertension. Hopefully we can get some idea of what her creatinine baseline is. Requests are submitted to her PCP. no sign of any old labs now. Renal ultrasound shows normal kidney size plus increased echogenicity. Urinalysis is bland. CPK is normal She has 3+ protein on her urinalysis. Urine protein to creatinine ratio is over 5000. So this is nephrotic syndrome. Echo shows no explanation for the swelling. The patient has COVID and also C diff colitis, both of which can cause acute on chronic renal insufficiency. at this point she has significant fluid burden. she is on albumin plus bumetanide And metolazone. I have told her that she her urine output is not that great and were making very little had weight in her swelling. If this continues we should consider dialysis. The patient has been thinking about this and says that she does not want dialysis under any circumstance. Even if she has to to prevent it. I offered hospice and she said that she had a bad experience with her hospice when her mother so she does not want hospice but still does not want to do dialysis. We had a long discussion. The patient also has metabolic acidosis. This is probably from renal failure plus the diarrhea. Anion gap is only 12. Will give bicarb supplements. CO2 still only 10 yesterday (2) Person under investigation for COVID-19: Code(s): Z20.822 - Contact with and (suspected) exposure to COVID-19 Status: Deleted Assessment and Plan: The test is positive. the patient is on respiratory isolation. (3) C. difficile colitis: Code(s): A04.72 - Enterocolitis due to Clostridium difficile, not specified as recurrent Status: Acute Assessment and Plan: The patient is on contact / c diff isolation. She is on Flagyl. (4) Anemia: Code(s): D64.9 - Anemia, unspecified Status: Acute Assessment and Plan: Hemoglobin is 9.4. Not low enough to start GYPSY for now. Hemoglobin down to 8.5. Will start EPO. (5) Hyperkalemia: Code(s): E87.5 - Hyperkalemia Status: Acute Assessment and Plan: the patient is on Kayexalate at home. she is not on this now because of her diarrhea. Perhaps her C diff is keeping her potassium low. this is pending. (6) HTN (hypertension) with goal to be determined: Code(s): I10 - Essential (primary) hypertension Status: Acute Assessment and Plan: Blood pressure is doing pretty well. I think we will just resume her home medications. Pulse is only 50. Will wean clonidine. (7) IDDM (insulin dependent diabetes mellitus): Status: Acute Assessment and Plan: She is on Accu-Cheks and sliding-scale insulin. Subjective Date/time seen: 06/05/21 13:21 Interval history: Patient feels about the same today. She has not noted any significant increase in urine output. She is still swollen. Exam Narrative: WDWN in NAD skin no rash Or subcu non head ncat lungs clear bilaterally cor reg no rub orgallop abd BS+ nontender and soft ext Bilateral [id number] amputations. She has 2+ edema up to the umbilicus. this is stable Objective Data Vital Signs Vital Signs: Vital Signs - 24 hr 06/04/21 16:00 06/04/21 20:00 06/04/21 21:18 Temperature 35.9 C L 36.0 C L Pulse Rate 49 L 52 L 58 L Respiratory Rate 20 18 Blood Pressure 102/40 L 146/58 H Pulse Oximetry 98 96 06/05/21 00:00 06/05/21 00:15 06/05/21 04:00 Temperature 35.9 C L 35.8 C L Pulse Rate 60 51 L Respiratory Rate 18 16 Blood Pressure 148/51 H 142/51 H Pulse Oximetry 96 96 99 06/05/21 08:00 06/05/21 08:45 [place]
[2021-06-05 15:43] LABS: Glucose Point of Care 100 mg/dl (65-105)
[2021-06-05] MEDS: EPOETIN ALFA-EPBX 10,000 UNITS/ML VIAL 10000 UNITS SUB-Q (16:56)
[2021-06-05 17:10] LABS: Glucose Point of Care 98 mg/dl (65-105)
[2021-06-05 17:31] LABS: Magnesium 1.5 mg/dL (1.6-2.3)
[2021-06-05] MEDS: traZODone HCL 50 MG TABLET 100 MG PO (20:54)
[2021-06-05 22:12] LABS: Glucose Point of Care 103 mg/dl (65-105)
[2021-06-06] VITALS (7 sets, daily range): BP systolic 139–180; BP diastolic 52–76; PULSE 64–92; RESP 16–21; TEMP 35.7–36.4; O2SAT 97–100
[2021-06-06] MEDS: ALBUMIN HUMAN 25% 25 GM/100 ML 100 ML IVPB ×2 (02:48→11:19)
[2021-06-06] MEDS: VANCOMYCIN ORAL 125 MG/2.5 ML SYRUP PO ×4 (02:49→20:37)
[2021-06-06 07:11] LABS: Hematocrit 25.1 % (37.0-47.0); Hemoglobin 8.1 g/dL (12.0-15.0); Mean Corpuscular HGB Conc 32.3 g/dl (32-36); Mean Corpuscular Hemoglobin 28.4 pg (26-34); Mean Corpuscular Volume 88.1 fl (80-100); Platelet Count Result 222 k/mm3 (150-375); Red Blood Count 2.85 M/mm3 (4.2-5.4); Red Cell Distribution Width 17.5 % (11.5-14.5); White Blood Count 9.5 K/mm3 (4.5-10.0)
[2021-06-06 07:20] LABS: Alanine Aminotransferase 6 U/L (4-35); Albumin Level 3.1 g/dL (3.5-5.1); Alkaline Phosphatase 70 U/L (38-126); Anion Gap 15 mmol/L (8-16); Aspartate Amino Transferase 15 U/L (14-36); Bilirubin,Total 0.3 mg/dL (0.2-1.3); Blood Urea Nitrogen 77 mg/dL (7-17); Calcium 6.5 mg/dL (8.4-10.2); Carbon Dioxide 10 mmol/L (22-30); Chloride 113 mmol/L (98-107); Estimated CRCL calculation 10 ml/min; Estimated Glomerular Filt Rate 7; Glucose 97 mg/dL (65-110); Potassium 4.2 mmol/L (3.4-5.0); Sodium 138 mmol/L (137-145)
[2021-06-06 08:34] LABS: Glucose Point of Care 95 mg/dl (65-105)
--- NOTE | 2021-06-06 09:05 | PM.IMPN ---
Progress Note: A&P Assessment and Plan (1) Bladder wall thickening: Code(s): N32.89 - Other specified disorders of bladder Status: Acute Assessment and Plan: R/o cholecystitis GS consulted, continue current treatment HIDA scan showed no activity Tolerating diet No further episodes needed (2) Colitis: Code(s): K52.9 - Noninfective gastroenteritis and colitis, unspecified Status: Acute Assessment and Plan: Continue IVF Continue with IV antibiotics I am concerned more on the side of edema than infectious colitis Stool study found no growth C diff positive (3) IDDM (insulin dependent diabetes mellitus): Status: Acute Assessment and Plan: Resume home medication (4) HTN (hypertension) with goal to be determined: Code(s): I10 - Essential (primary) hypertension Status: Acute Assessment and Plan: DC IV fluid Adjusted home medication BP Stable at 168/60 (5) C. difficile colitis: Code(s): A04.72 - Enterocolitis due to Clostridium difficile, not specified as recurrent Status: Acute Assessment and Plan: C diff is positive Change flagyl to PO vanco Diarrhea has slowed down (6) CKD (chronic kidney disease): Code(s): N18.9 - Chronic kidney disease, unspecified Status: Acute Assessment and Plan: Acute on top of chronic renal failure DC IV fluid patient has anasarca urine study was sent nephrology consult CT scan no evidence of hydronephrosis DC IV Lasix and changed to bumex 2mg IV BID Trend labs BUN/Cr elevated at 77/6.[address] Crenshaw who is suggesting dialysis Talked to her Daughter about the need and getting started here Line placement initiated Nephrology to manage dialysis (7) Anemia: Code(s): D64.9 - Anemia, unspecified Status: Acute Assessment and Plan: Hgb 8.1 Transfuse if <7 Monitor (8) BKA stump complication: Code(s): T87.9 - Unspecified complications of amputation stump Status: Acute Assessment and Plan: Orthopedic consulted May need CT scan of the left stump Has increased drainage, however, is still kind of fresh with it being done about 1 month ago Stump on the left does have a open section that does not seem to be infected Wound care re-evaluated wound and put orders in for wound gel, ABD, and julia bandage to shrink the wound and prevent further infection Continue to monitor (9) COVID-19: Code(s): U07.1 - COVID-19 Status: Acute Assessment and Plan: Pt shares room with COVID pts Continue to monitor Denies any symptoms COVID-19 is positive She remains on room air She is not complaining of a cough, shortness of breath, or covid like symptoms Without any respiratory deficit I would say that this is a current finding without PNA Time Spent With Patient Time with patient: Greater than 35 minutes Subjective Date/time seen: 06/06/21 0905 Interval history: Interval history: Date/time seen: 06/02/21 09:33 Interval history: Patient seen and examined Patient presented to the hospital with abdominal pain CT scan shows anasarca concern for colitis cholecystitis surgery was consulted patient was treated with empiric antibiotic has she has significant leukocytosis but also CT scan shows pericardial effusion pleural effusion concern for anasarca Renal function worsened yesterday Edema has improved DC IV Lasix Pending nephrology evaluation Pending ultrasound Pending blood culture Continue IV antibiotics Pending HIDA scan Patient has drainage from the left leg stump patient has a BKA on 05/12/2021 orthopedic was consulted Patient denies fever headache chest pain I am seeing the patient for anasarca Date/Time 06/03/21 11:30 Patient was lying in bed. Patient denied any belly, chest pain. Patient denies any nausea vomiting. Patient does still have diarrhea however she said it is getti
[2021-06-06] MEDS: ATORVASTATIN 40 MG TABLET PO (11:17)
[2021-06-06] MEDS: BUMETANIDE INJ 2.5 MG/10 ML VIAL 2 MG IV PUSH ×2 (11:17→18:12)
[2021-06-06] MEDS: ASCORBIC ACID 500 MG TABLET PO (11:17)
[2021-06-06] MEDS: dilTIAZem HCL CD 180 MG CAP.ER.24H 360 MG PO (11:17)
[2021-06-06] MEDS: carvediloL 25 MG TABLET PO ×2 (11:17→20:36)
[2021-06-06] MEDS: SODIUM BICARBONATE TAB 650 MG TABLET 1300 MG PO ×2 (11:18→18:12)
[2021-06-06] MEDS: THERAPEUTIC MULTIVITAMINS/MINERALS TAB (*BKC) 1 TABLET PO (11:18)
[2021-06-06] MEDS: PANTOPRAZOLE 40 MG TABLET PO ×2 (11:18→20:37)
[2021-06-06] MEDS: SILVERGEL (ELTA) 45 ML 1 APPLIC TOPICAL (11:20)
[2021-06-06 12:26] LABS: Glucose Point of Care 117 mg/dl (65-105)
--- NOTE | 2021-06-06 16:01 | PM.PNNEP ---
Progress Note: A&P Assessment and Plan (1) CKD (chronic kidney disease): Code(s): N18.9 - Chronic kidney disease, unspecified Status: Acute Assessment and Plan: the patient has chronic kidney disease. most likely due to diabetes and hypertension. SHe may hav e an acute component due to covid and cdif. she is developing uremic signs. I talked with her again and she does not want dialysis. later this afternoon after seeing her , I talked with [employer] Germain. he talked with daughter and all decided to try dialysis after all. He will ask surgery to place a tunneled dialysis catheter tomorrow. Renal ultrasound shows normal kidney size plus increased echogenicity. Urinalysis is bland. CPK is normal will initiate dialysis. ti may be short term if there is an acute component. if not then it will be termite technician. will remove fluid. dialysis should help the metabolic acidosis as well. (2) Person under investigation for COVID-19: Code(s): Z20.822 - Contact with and (suspected) exposure to COVID-19 Status: Deleted Assessment and Plan: The test is positive. the patient is on respiratory isolation. (3) C. difficile colitis: Code(s): A04.72 - Enterocolitis due to Clostridium difficile, not specified as recurrent Status: Acute Assessment and Plan: The patient is on contact / c diff isolation. She is on Flagyl. (4) Anemia: Code(s): D64.9 - Anemia, unspecified Status: Acute Assessment and Plan: Hemoglobin is 9.4. Not low enough to start GYPSY for now. Hemoglobin down to 8.5. she is on epo (5) Hyperkalemia: Code(s): E87.5 - Hyperkalemia Status: Acute Assessment and Plan: the patient is on Kayexalate at home. she is not on this now because of her diarrhea. Perhaps her C diff is keeping her potassium low. this is pending. (6) HTN (hypertension) with goal to be determined: Code(s): I10 - Essential (primary) hypertension Status: Acute Assessment and Plan: Blood pressure is doing pretty well. I think we will just resume her home medications. Pulse is only 50. Will wean clonidine. (7) IDDM (insulin dependent diabetes mellitus): Status: Acute Assessment and Plan: She is on Accu-Cheks and sliding-scale insulin. Subjective Date/time seen: 06/06/21 16:01 Interval history: seen earlier this afternoon patient is feeling okay no sob. some edema. morning nausea. Review of Systems Cardiovascular: Cardiovascular: Reports no additional cardiovascular complaints Respiratory: Respiratory: Reports no additional respiratory complaints Gastrointestinal: Gastrointestinal: Reports no additional gastrointestinal complaints Genitourinary: Genitourinary: Reports no additional female genitourinary complaints Exam Narrative: WDWN in NAD skin no rash head ncat lungs clear cor reg no rub abd BS+ nontender and soft ext 1+ edema up to umbilicus. bilateral BKA. Objective Data Vital Signs Vital Signs: Vital Signs - 24 hr 06/05/21 20:00 06/05/21 20:53 06/06/21 00:00 Temperature 35.8 C L 35.8 C L Pulse Rate 79 80 92 Respiratory Rate 18 18 Blood Pressure 173/67 H 157/52 H Pulse Oximetry 97 99 06/06/21 04:00 06/06/21 08:00 06/06/21 12:00 Temperature 36.1 C L 36.1 C L 35.7 C L Pulse Rate 74 82 86 Respiratory Rate 18 20 21 H Blood Pressure 168/60 H 165/76 H 180/56 H Pulse Oximetry 100 97 100 Intake/Output Intake/Output: Intake & Output 06/03/21 06/04/21 06/05/21 06/06/21 23:59 23:59 23:59 23:59 Intake Total 1370 1060 1370 1380 Output Total 250 950 600 Balance 1370 810 420 780 Meds/Results Medications: Active Medications Generic Name Dose Route Start Last Admin Trade Name Freq PRN Reason Stop Dose Admin Hydrocodone Bitart/Acetaminophen 1 tab 06/01/21 10:45 06/01/21 20:58 Hydrocodone/Acetaminophen (*Crx) 5-325 Mg Tablet PO
--- NOTE | 2021-06-06 16:18 | PM.PNORT ---
Progress Note: A&P Additional Plan Cont daily dressing changes elevate stump as much as possible. cont medical supportive managemnet will allow to continue to heal by secondary intention. Subjective Subjective Date/Time Seen: 06/06/21 16:18 Interval history: Left amp stump is still with some serous drainage but no purulence per RN. Exam Extrem: Other: Left amp stump well dressed no drainage noted. RN state serous drainage in ABD but no purulence. incision is unchanged with slight diastasis Objective Data Vital Signs Vital Signs: Vital Signs - 24 hr 06/05/21 20:00 06/05/21 20:53 06/06/21 00:00 Temperature 35.8 C L 35.8 C L Pulse Rate 79 80 92 Respiratory Rate 18 18 Blood Pressure 173/67 H 157/52 H Pulse Oximetry 97 99 06/06/21 04:00 06/06/21 08:00 06/06/21 12:00 Temperature 36.1 C L 36.1 C L 35.7 C L Pulse Rate 74 82 86 Respiratory Rate 18 20 21 H Blood Pressure 168/60 H 165/76 H 180/56 H Pulse Oximetry 100 97 100 Intake/Output Intake/Output: Intake & Output 06/03/21 06/04/21 06/05/21 06/06/21 23:59 23:59 23:59 23:59 Intake Total 1370 1060 1370 1380 Output Total 250 950 600 Balance 1370 810 420 780 Meds/Results Medications: Active Medications Generic Name Dose Route Start Last Admin Trade Name Freq PRN Reason Stop Dose Admin Hydrocodone Bitart/Acetaminophen 1 tab 06/01/21 10:45 06/01/21 20:58 Hydrocodone/Acetaminophen (*Crx) 5-325 Mg Tablet PO 1 tab Q4H PRN Administration Pain Albuterol 2 puff 06/01/21 10:45 Albuterol Sulfate (*Sp) Aerosol 1 Puff INHALATION Q4H PRN Shortness Of Breath Ascorbic Acid 500 mg 06/02/21 09:00 06/06/21 11:17 Ascorbic Acid 500 Mg Tablet PO 500 mg DAILY [facility] Administration Atorvastatin Calcium 40 mg 06/02/21 09:00 06/06/21 11:17 Atorvastatin 40 Mg Tablet PO 40 mg DAILY GLORY Administration Bisacodyl 5 mg 06/01/21 10:45 Bisacodyl 5 Mg Tablet Ec PO HS PRN Constipation Bumetanide 2 mg 06/02/21 10:30 06/06/21 11:17 Bumetanide Inj 2.5 Mg/10 Ml Vial IV PUSH 2 mg BID GLORY Administration Carvedilol 25 mg 06/01/21 09:00 06/06/21 11:17 Carvedilol 25 Mg Tablet PO 25 mg Q12HR GLORY Administration Dextrose 12.5 gm 05/31/21 10:23 Dextrose 50% 25 Gm/50 Ml Syringe IV PUSH PRN PRN Hypoglycemia Protocol Diltiazem HCl 360 mg 06/02/21 09:00 06/06/21 11:17 Diltiazem Hcl Cd 180 Mg Cap.Er.24h PO 360 mg DAILY LGORY Administration Docusate Sodium 100 mg 06/02/21 09:00 06/06/21 11:18 Docusate Sodium 100 Mg Capsule PO Not Given DAILY [facility] Epoetin Andrew-epbx 10,000 units 06/05/21 17:00 06/05/21 16:56 Epoetin Andrew-Epbx 10,000 Units/Ml Vial SUB-Q 10,000 units [id number]@[id number] GLORY Administration Ferrous Sulfate 324 mg 06/02/21 09:00 06/06/21 11:25 Ferrous Sulfate 324 Mg Tablet PO Not Given DAILY [facility] Glucagon 1 mg 05/31/21 10:23 Glucagon For Inj 1 Mg Vial IM PRN PRN Hypoglycemia Protocol Glucose 15 gm 05/31/21 10:23 Glucose Oral Gel 15 Gm Of Glucse In 37.5 Gm Tube PO PRN PRN Hypoglycemia Protocol Hydralazine HCl 12.5 mg/ 37.5 mg 06/02/21 17:00 06/06/21 13:44 Hydralazine HCl 25 mg PO 37.5 mg TID GLORY Administration Dextrose 1,000 mls @ 100 mls/hr 05/31/21 10:23 Dextrose 5% 1,000 Ml IVPB PRN PRN Hypoglycemia Protocol Albumin Human 50 mls @ 999 mls/hr 06/06/21 16:08 Albutein IVPB 06/07/21 16:07 Q10M PRN HYPOTENSION Sodium Chloride 1,000 mls @ 999 mls/hr 06/06/21 16:08 Normal Saline Iv IV CONT 06/06/21 17:08 .Q1H1M ONE Morphine Sulfate 4 mg 05/31/21 06:12 06/04/21 16:00 Morphine Sulfate (*Crx) 4 Mg/Ml Inj IV PUSH 4 mg Q2H PRN Administration Pain Rated 7-10 Multivitamins/Calcium 1 tablet 06/02/21 09:00 06/06/21 11:18 Therapeutic Multivitamins/Minerals Tab (*Bkc) PO 1 tablet DAILY GLORY Administration Onda
[2021-06-06 16:48] LABS: Glucose Point of Care 125 mg/dl (65-105)
[2021-06-06 17:14] LABS: Glucose Point of Care 117 mg/dl (65-105)
[2021-06-06 18:22] LABS: Hepatitis B Surface Antigen Negative (Negative)
[2021-06-06 18:39] LABS: Hepatitis B Surface Anti Res Negative; Hepatitis C Virus Antibody Negative (Negative)
[2021-06-06] MEDS: traZODone HCL 50 MG TABLET 100 MG PO (20:37)
[2021-06-06] MEDS: HYDROcodone/acetaminophen (*CRX) 5-325 MG TABLET 1 TAB PO (20:39)
[2021-06-06 21:20] LABS: Glucose Point of Care 142 mg/dl (65-105)
[2021-06-07] VITALS (12 sets, daily range): BP systolic 120–168; BP diastolic 42–86; PULSE 54–79; RESP 16–19; TEMP 35.6–36.6; O2SAT 94–99
[2021-06-07] MEDS: VANCOMYCIN ORAL 125 MG/2.5 ML SYRUP PO ×4 (02:55→21:49)
[2021-06-07 06:34] LABS: Hematocrit 27.3 % (37.0-47.0); Hemoglobin 8.7 g/dL (12.0-15.0); Mean Corpuscular HGB Conc 31.9 g/dl (32-36); Mean Corpuscular Hemoglobin 28.3 pg (26-34); Mean Corpuscular Volume 88.9 fl (80-100); Mean Platelet Volume 9.7 fl (7.4-10.4); Platelet Count Result 261 k/mm3 (150-375); Red Blood Count 3.07 M/mm3 (4.2-5.4); Red Cell Distribution Width 17.6 % (11.5-14.5); White Blood Count 10.9 K/mm3 (4.5-10.0)
[2021-06-07 06:47] LABS: Albumin Level 2.8 g/dL (3.5-5.1); Anion Gap 12 mmol/L (8-16); Blood Urea Nitrogen 77 mg/dL (7-17); Calcium 6.8 mg/dL (8.4-10.2); Carbon Dioxide 10 mmol/L (22-30); Chloride 115 mmol/L (98-107); Estimated CRCL calculation 11 ml/min; Estimated Glomerular Filt Rate 7; Glucose 100 mg/dL (65-110); Phosphorus 7.1 mg/dL (2.5-4.5); Potassium 4.2 mmol/L (3.4-5.0); Sodium 137 mmol/L (137-145)
--- NOTE | 2021-06-07 07:16 | PM.PNGS ---
Progress Note: A&P Assessment and Plan (1) Renal failure (ARF), acute on chronic: Code(s): N17.9 - Acute kidney failure, unspecified; N18.9 - Chronic kidney disease, unspecified Status: Acute Assessment and Plan: will need emergent HD per nephrology, will place TDC for access (2) COVID-19: Code(s): U07.1 - COVID-19 Status: Acute Assessment and Plan: cont precautions (3) C. difficile colitis: Code(s): A04.72 - Enterocolitis due to Clostridium difficile, not specified as recurrent Status: Acute Assessment and Plan: on appropriate abx, cont precautionary measures Subjective Subjective Date/Time Seen: 06/07/21 07:16 no acute issues, still c fluid overload, uremia, agrees to HD at this time Review of Systems Review of Systems: All systems reviewed & are unremarkable except as noted in HPI and below Exam Const: General: cooperative, no acute distress and ill appearing Nutritional Appearance: obese Chest: Chest palpation & inspection: normal inspection of the chest Resp: Effort & Inspection: normal respiratory effort Auscultation: crackles and diminished lung sounds Cardio: Rate: regular rate GI: Inspection: normal to inspection, Abdominal wall edema and non-distended GI Palp: Yes Soft to palpation and No Tenderness to palpation present (GI) Objective Data Vital Signs Vital Signs: Vital Signs - 24 hr 06/06/21 08:00 06/06/21 12:00 06/06/21 16:00 Temperature 36.1 C L 35.7 C L 35.8 C L Pulse Rate 82 86 66 Respiratory Rate 20 21 H 20 Blood Pressure 165/76 H 180/56 H 139/61 Pulse Oximetry 97 100 97 06/06/21 20:00 06/06/21 20:36 06/07/21 00:00 Temperature 36.4 C L 36.2 C L Pulse Rate 70 64 66 Respiratory Rate 16 16 Blood Pressure 158/60 H 151/56 H Pulse Oximetry 98 98 06/07/21 04:00 Temperature 35.6 C L Pulse Rate 69 Respiratory Rate 18 Blood Pressure 168/57 H Pulse Oximetry 98 Intake/Output Intake/Output: Intake & Output 06/04/21 06/05/21 06/06/21 06/07/21 23:59 23:59 23:59 23:59 Intake Total 1060 1370 2460 300 Output Total 420 783 4957 450 Balance 637 385 4887 -150 Meds/Results Medications: Active Medications Generic Name Dose Route Start Last Admin Trade Name Freq PRN Reason Stop Dose Admin Hydrocodone Bitart/Acetaminophen 1 tab 06/01/21 10:45 06/06/21 20:39 Hydrocodone/Acetaminophen (*Crx) 5-325 Mg Tablet PO 1 tab Q4H PRN Administration Pain Albuterol 2 puff 06/01/21 10:45 Albuterol Sulfate (*Sp) Aerosol 1 Puff INHALATION Q4H PRN Shortness Of Breath Ascorbic Acid 500 mg 06/02/21 09:00 06/06/21 11:17 Ascorbic Acid 500 Mg Tablet PO 500 mg DAILY GLORY Administration Atorvastatin Calcium 40 mg 06/02/21 09:00 06/06/21 11:17 Atorvastatin 40 Mg Tablet PO 40 mg DAILY GLORY Administration Bisacodyl 5 mg 06/01/21 10:45 Bisacodyl 5 Mg Tablet Ec PO HS PRN Constipation Bumetanide 2 mg 06/02/21 10:30 06/06/21 18:12 Bumetanide Inj 2.5 Mg/10 Ml Vial IV PUSH 2 mg BID GLORY Administration Carvedilol 25 mg 06/01/21 09:00 06/06/21 20:36 Carvedilol 25 Mg Tablet PO 25 mg Q12HR GLORY Administration Dextrose 12.5 gm 05/31/21 10:23 Dextrose 50% 25 Gm/50 Ml Syringe IV PUSH PRN PRN Hypoglycemia Protocol Diltiazem HCl 360 mg 06/02/21 09:00 06/06/21 11:17 Diltiazem Hcl Cd 180 Mg Cap.Er.24h PO 360 mg DAILY GLORY Administration Docusate Sodium 100 mg 06/02/21 09:00 06/06/21 11:18 Docusate Sodium 100 Mg Capsule PO Not Given DAILY [facility] Epoetin Andrew-epbx 10,000 units 06/05/21 17:00 06/05/21 16:56 Epoetin Andrew-Epbx 10,000 Units/Ml Vial SUB-Q 10,000 units [id number]@1700 GLORY Administration Ferrous Sulfate 324 mg 06/02/21 09:00 06/06/21 11:25 Ferrous Sulfate 324 Mg Tablet PO Not Given DAILY [facility] Glucagon 1 mg 05/31/21 10:23 Glucagon For Inj 1 Mg Vial IM PRN PRN Hypoglycemia Allyssa
--- NOTE | 2021-06-07 07:20 | WPDHPUPDATE1 ---
History and Physical Update Update Date/Time: 06/07/21 07:20 History and Physical has been reviewed, including an updated exam of the patient. There are NO changes in the patient's condition. Risks, benefits, and alternatives have been discussed and questions answered. Patient agrees to proceed with procedure.
[2021-06-07 08:32] LABS: Glucose Point of Care 101 mg/dl (65-105)
[2021-06-07] MEDS: SODIUM BICARBONATE TAB 650 MG TABLET 1300 MG PO ×2 (08:53→18:12)
[2021-06-07] MEDS: PANTOPRAZOLE 40 MG TABLET PO ×2 (08:53→21:49)
[2021-06-07] MEDS: BUMETANIDE INJ 2.5 MG/10 ML VIAL 2 MG IV PUSH ×2 (08:53→18:12)
[2021-06-07] MEDS: DOCUSATE SODIUM 100 MG CAPSULE PO (08:54)
[2021-06-07] MEDS: THERAPEUTIC MULTIVITAMINS/MINERALS TAB (*BKC) 1 TABLET PO (08:54)
[2021-06-07] MEDS: ATORVASTATIN 40 MG TABLET PO (08:54)
[2021-06-07] MEDS: FERROUS SULFATE 324 MG TABLET PO (08:54)
[2021-06-07] MEDS: ASCORBIC ACID 500 MG TABLET PO (08:54)
[2021-06-07] MEDS: dilTIAZem HCL CD 180 MG CAP.ER.24H 360 MG PO (08:55)
[2021-06-07] MEDS: carvediloL 25 MG TABLET PO (08:55)
[2021-06-07] MEDS: SILVERGEL (ELTA) 45 ML 1 APPLIC TOPICAL (08:56)
--- NOTE | 2021-06-07 10:00 | PM.IMPN ---
Progress Note: A&P Assessment and Plan (1) CKD (chronic kidney disease): Code(s): N18.9 - Chronic kidney disease, unspecified Status: Acute Assessment and Plan: Acute on top of chronic renal failure DC IV fluid patient has anasarca urine study was sent nephrology consult CT scan no evidence of hydronephrosis DC IV Lasix and changed to bumex 2mg IV BID Trend labs BUN/Cr elevated at 77/6.[address] Crenshaw who is suggesting dialysis Talked to her Daughter about the need and getting started here Line placement initiated Nephrology to manage dialysis (2) IDDM (insulin dependent diabetes mellitus): Status: Acute Assessment and Plan: Resume home medication (3) HTN (hypertension) with goal to be determined: Code(s): I10 - Essential (primary) hypertension Status: Acute Assessment and Plan: DC IV fluid Adjusted home medication BP Stable at 168/57 (4) C. difficile colitis: Code(s): A04.72 - Enterocolitis due to Clostridium difficile, not specified as recurrent Status: Acute Assessment and Plan: C diff is positive Change flagyl to PO vanco Diarrhea has slowed down Controlled at timer (5) Anemia: Code(s): D64.9 - Anemia, unspecified Status: Acute Assessment and Plan: Hgb 8.7 today Transfuse if <7 Monitor (6) BKA stump complication: Code(s): T87.9 - Unspecified complications of amputation stump Status: Acute Assessment and Plan: Orthopedic consulted May need CT scan of the left stump Has increased drainage, however, is still kind of fresh with it being done about 1 month ago Stump on the left does have a open section that does not seem to be infected Wound care re-evaluated wound and put orders in for wound gel, ABD, and julia bandage to shrink the wound and prevent further infection Continue to monitor (7) COVID-19: Code(s): U07.1 - COVID-19 Status: Acute Assessment and Plan: Pt shares room with COVID pts Continue to monitor Denies any symptoms COVID-19 is positive She remains on room air She is not complaining of a cough, shortness of breath, or covid like symptoms Without any respiratory deficit I would say that this is a current finding without PNA (8) Bladder wall thickening: Code(s): N32.89 - Other specified disorders of bladder Status: Acute Assessment and Plan: R/o cholecystitis GS consulted, continue current treatment HIDA scan showed no activity Tolerating diet No further episodes needed (9) Colitis: Code(s): K52.9 - Noninfective gastroenteritis and colitis, unspecified Status: Acute Assessment and Plan: Continue IVF Continue with IV antibiotics I am concerned more on the side of edema than infectious colitis Stool study found no growth C diff positive (10) Cellulitis of left lower leg: Code(s): L03.116 - Cellulitis of left lower limb Status: Acute Assessment and Plan: Wound culture tested positive for VRE Vancomycin IV cano to dose Monitor drainage Trend labs Time Spent With Patient Time with patient: Greater than 35 minutes Subjective Date/time seen: 06/07/21 1000 Interval history: Interval history: Date/time seen: 06/02/21 09:33 Interval history: Patient seen and examined Patient presented to the hospital with abdominal pain CT scan shows anasarca concern for colitis cholecystitis surgery was consulted patient was treated with empiric antibiotic has she has significant leukocytosis but also CT scan shows pericardial effusion pleural effusion concern for anasarca Renal function worsened yesterday Edema has improved DC IV Lasix Pending nephrology evaluation Pending ultrasound Pending blood culture Continue IV antibiotics Pending HIDA scan Patient has drainage from the left leg stump patient has a BKA on 05/12/2021 orthopedic was consulte
[2021-06-07 12:13] LABS: Glucose Point of Care 91 mg/dl (65-105)
--- NOTE | 2021-06-07 13:15 | PM.PNNEP ---
Progress Note: A&P Assessment and Plan (1) CKD (chronic kidney disease): Code(s): N18.9 - Chronic kidney disease, unspecified Status: Acute Assessment and Plan: the patient has chronic kidney disease. most likely due to diabetes and hypertension. SHe may hav e an acute component due to covid and cdif. the patient will get a tunneled catheter. She will start dialysis tomorrow. I notify the dialysis nurses. Case management is working on outpatient dialysis placement. (2) Person under investigation for COVID-19: Code(s): Z20.822 - Contact with and (suspected) exposure to COVID-19 Status: Deleted Assessment and Plan: The test is positive. the patient is on respiratory isolation. (3) C. difficile colitis: Code(s): A04.72 - Enterocolitis due to Clostridium difficile, not specified as recurrent Status: Acute Assessment and Plan: The patient is on contact / c diff isolation. She is on Flagyl. (4) Anemia: Code(s): D64.9 - Anemia, unspecified Status: Acute Assessment and Plan: Hemoglobin is down to 8.7. she is on epo (5) Hyperkalemia: Code(s): E87.5 - Hyperkalemia Status: Acute Assessment and Plan: the patient is on Kayexalate at home. she is not on this now because of her diarrhea. Perhaps her C diff is keeping her potassium low. this is pending. (6) HTN (hypertension) with goal to be determined: Code(s): I10 - Essential (primary) hypertension Status: Acute Assessment and Plan: Blood pressure is doing pretty well. I think we will just resume her home medications. Pulse is only 50. Will wean clonidine. (7) IDDM (insulin dependent diabetes mellitus): Status: Acute Assessment and Plan: She is on Accu-Cheks and sliding-scale insulin. Subjective Date/time seen: 06/07/21 13:15 Interval history: patient is alert. She is feeling okay. She is going to get her tunneled catheter at around 3 or 4 today. We discussed dialysis. She will get her 1st treatment tomorrow. We discussed that they are going to try to take some fluid off to help her swelling. Will also take kidney poisons off to help her nausea. We discussed the process of dialysis as well as the risks benefits and alternatives. She agrees to proceed Exam Narrative: WDWN in NAD skin no rash head ncat lungs clear cor reg no rub or gallop abd BS+ nontender and soft ext 1+ edema up to umbilicus. bilateral BKA. Objective Data Vital Signs Vital Signs: Vital Signs - 24 hr 06/06/21 16:00 06/06/21 20:00 06/06/21 20:36 Temperature 35.8 C L 36.4 C L Pulse Rate 66 70 64 Respiratory Rate 20 16 Blood Pressure 139/61 158/60 H Pulse Oximetry 97 98 06/07/21 00:00 06/07/21 04:00 06/07/21 08:00 Temperature 36.2 C L 35.6 C L 36.6 C Pulse Rate 66 69 67 Respiratory Rate 16 18 16 Blood Pressure 151/56 H 168/57 H 158/68 H Pulse Oximetry 98 98 99 06/07/21 08:55 06/07/21 12:00 Temperature 36.1 C L Pulse Rate 79 70 Respiratory Rate 19 Blood Pressure 168/56 H Pulse Oximetry 97 Intake/Output Intake/Output: Intake & Output 06/04/21 06/05/21 06/06/21 06/07/21 23:59 23:59 23:59 23:59 Intake Total 1060 1370 2460 300 Output Total 800 313 6018 450 Balance 568 194 3202 -150 Meds/Results Medications: Active Medications Generic Name Dose Route Start Last Admin Trade Name Freq PRN Reason Stop Dose Admin Hydrocodone Bitart/Acetaminophen 1 tab 06/01/21 10:45 06/06/21 20:39 Hydrocodone/Acetaminophen (*Crx) 5-325 Mg Tablet PO 1 tab Q4H PRN Administration Pain Albuterol 2 puff 06/01/21 10:45 Albuterol Sulfate (*Sp) Aerosol 1 Puff INHALATION Q4H PRN Shortness Of Breath Ascorbic Acid 500 mg 06/02/21 09:00 06/07/21 08:54 Ascorbic Acid 500 Mg Tablet PO 500 mg DAILY [facility] Administration Atorvastatin Calcium 40 mg 06/02/21 09:00 06/07/21 0
[2021-06-07 13:48] LABS: Vancomycin Random 9.9 ug/mL (10-20)
--- NOTE | 2021-06-07 15:37 | PC.NURSE ---
To OR per [stretcher ], IV [locked]
[2021-06-07] MEDS: LIDO 1%/EPINEPHRINE 1:100,000 50 ML VIAL INFILTRATE (16:01)
[2021-06-07] MEDS: HEPARIN SODIUM, PORCINE 10,000 UNITS/10 ML VIAL 10000 UNITS IRRIGATION (16:02)
[2021-06-07] MEDS: HEPARIN SODIUM 5,000 UNITS/ML VIAL 5000 UNITS XX (16:04)
--- NOTE | 2021-06-07 16:17 | P.OP_ITS ---
Procedure Note - Detailed Date of Procedure 06/07/21 Pre-op Diagnosis acute on chronic renal failure Post-op Diagnosis same Procedure Performed placement of 28 cm tunneled hemodialysis catheter in right internal jugular vein under both ultrasound and fluroscopic guidance Surgeon Lenora Conway MD Anesthesia general and local Indications 61 y/o F c acute on CRF necessitating emergent dialysis Findings 1st stick RIJ Description of Procedure Patient was taken to the operating room and placed in the supine position. After adequate induction of general anesthesia, the patient was prepped and draped in normal sterile fashion. A time-out was then done to verify the patient's identity as well as the procedure being performed. I began by using the SonoSite and locating the right internal jugular vein. Once this was done, I localized the overlying skin. I then made a small incision in the skin. I then gained access into the right internal jugular vein with an 18 gauge needle. At this point, I threaded the guidewire into the right internal jugular vein. Placement of the guidewire was confirmed by both ultrasound and fluoroscopic guidance. I then went ahead and measured the 28 cm tunneled dialysis catheter to our stick site in the right neck. I then localized the tract going from the right chest to the right neck. I then made a small incision in the right chest and tunneled the catheter to the right neck. I then serially dilated the right internal jugular vein under fluoroscopic guidance. Once adequately dilated, I placed the dilating sheath over the guidewire into the right internal jugular vein under fluoroscopic visualization. Once this was noted to be in good position, I removed both the guidewire and dilator, now just leaving the sheath in the vein. I then went ahead and fed the previously tunneled catheter into the sheath. Once the catheter was fed and positioned correctly, I went ahead and peeled the sheath away. Final fluoroscopic view showed the catheter in good p osition from its insertion point in the right chest to its termination in the atrial caval junction. It was noted there was no kinking of the catheter. I was able to easily draw and flush from both ports of the catheter. I placed 2.2 and 2.3 cc of final heparin flush into each port as marked. The catheter was then sutured into place and the incision in the neck was closed with 4 O Monocryl subcuticular suture. The patient tolerated the procedure well and will be transferred to the ICU in critical condition. Sterile dressing was placed on the catheter. Portable chest x-ray will be done in the ICU. Implants 28 cm tunneled hemodialysis catheter Estimated Blood Loss 20 Urine Output 0 Drains No Packing No Pathology none sent Complications No immediate complications Condition stable Disposition floor
[2021-06-07] MEDS: LACTATED RINGERS 1,000 ML 30 ML IV CONT (16:22)
[2021-06-07 17:31] LABS: Glucose Point of Care 90 mg/dl (65-105)
[2021-06-07] MEDS: EPOETIN ALFA-EPBX 10,000 UNITS/ML VIAL 10000 UNITS SUB-Q (18:12)
[2021-06-07 19:57] LABS: Glucose Point of Care 130 mg/dl (65-105)
[2021-06-07] MEDS: traZODone HCL 50 MG TABLET 100 MG PO (21:49)
[2021-06-08] VITALS (19 sets, daily range): BP systolic 106–174; BP diastolic 46–68; PULSE 43–71; RESP 18–20; TEMP 36.1–37; O2SAT 98–100
[2021-06-08] MEDS: VANCOMYCIN ORAL 125 MG/2.5 ML SYRUP PO ×3 (01:41→19:51)
[2021-06-08] MEDS: HYDROcodone/acetaminophen (*CRX) 5-325 MG TABLET 1 TAB PO ×2 (01:41→22:19)
[2021-06-08] MEDS: LINEZOLID 600 MG/300 ML 600 MG/300 ML SOLN 300 MG IVPB ×2 (01:41→19:51)
[2021-06-08 05:02] LABS: Osmolality, Urine 312 mOsm/kg (50-1200)
[2021-06-08 06:56] LABS: Basophils Absolute Auto 0.1 K/mm3 (0.0-0.1); Basophils Percent Auto 0.5 % (0.2-1.2); Eosinophils Absolute Auto 0.2 K/mm3 (0-0.3); Eosinophils Percent Auto 2.2 % (0-4.4); Hematocrit 28.2 % (37.0-47.0); Immature Granulocyte Absolute 0.64 K/mm3 (0.00-0.031); Lymphocytes Absolute Auto 0.97 K/mm3 (0.9-3.2); Lymphocytes Percent Auto 9.1 % (18.3-44.2); Mean Corpuscular HGB Conc 31.9 g/dl (32-36); Mean Corpuscular Hemoglobin 28.3 pg (26-34); Mean Corpuscular Volume 88.7 fl (80-100); Mean Platelet Volume 9.7 fl (7.4-10.4); Monocytes Absolute Auto 0.5 K/mm3 (0.1-0.6); Monocytes Percent Auto 4.9 % (2.6-8.5); Neutrophils Absolute Auto 8.3 K/mm3 (1.3-6.7); Neutrophils Percent Auto 77.3 % (45.5-73.1); Platelet Count Result 282 k/mm3 (150-375); Red Blood Count 3.18 M/mm3 (4.2-5.4); Red Cell Distribution Width 17.6 % (11.5-14.5); White Blood Count 10.7 K/mm3 (4.5-10.0)
[2021-06-08 07:14] LABS: Albumin Level 2.6 g/dL (3.5-5.1); Alkaline Phosphatase 83 U/L (38-126); Anion Gap 11 mmol/L (8-16); Aspartate Amino Transferase 21 U/L (14-36); Bilirubin,Total 0.2 mg/dL (0.2-1.3); Blood Urea Nitrogen 74 mg/dL (7-17); Calcium 7.4 mg/dL (8.4-10.2); Carbon Dioxide 11 mmol/L (22-30); Chloride 116 mmol/L (98-107); Estimated CRCL calculation 11 ml/min; Estimated Glomerular Filt Rate 7; Glucose 112 mg/dL (65-110); Magnesium 1.4 mg/dL (1.6-2.3); Potassium 4.2 mmol/L (3.4-5.0); Sodium 138 mmol/L (137-145)
[2021-06-08 07:19] LABS: Alanine Aminotransferase < 6 U/L (4-35)
[2021-06-08 07:36] LABS: Platelet Estimate Adequate (Adequate); Smudge Cells FEW
[2021-06-08 07:37] LABS: Acanthocytes 2+ (NORMAL); Anisocytosis 1+ (NORMAL); Ovalocytes 2+ (NORMAL); Tear Drop Cells 1+ (NORMAL)
[2021-06-08 08:58] LABS: Glucose Point of Care 109 mg/dl (65-105)
[2021-06-08] MEDS: ENOXAPARIN 30 MG/0.3 ML SYRINGE SUB-Q (09:03)
[2021-06-08] MEDS: BUMETANIDE INJ 2.5 MG/10 ML VIAL 2 MG IV PUSH (09:03)
[2021-06-08] MEDS: ASCORBIC ACID 500 MG TABLET PO (09:04)
[2021-06-08] MEDS: dilTIAZem HCL CD 180 MG CAP.ER.24H 360 MG PO (09:04)
[2021-06-08] MEDS: PANTOPRAZOLE 40 MG TABLET PO ×2 (09:04→20:54)
[2021-06-08] MEDS: THERAPEUTIC MULTIVITAMINS/MINERALS TAB (*BKC) 1 TABLET PO (09:04)
[2021-06-08] MEDS: ATORVASTATIN 40 MG TABLET PO (09:04)
[2021-06-08] MEDS: FERROUS SULFATE 324 MG TABLET PO (09:05)
[2021-06-08] MEDS: DOCUSATE SODIUM 100 MG CAPSULE PO (09:05)
[2021-06-08] MEDS: carvediloL 25 MG TABLET PO (09:05)
[2021-06-08] MEDS: SODIUM BICARBONATE TAB 650 MG TABLET 1300 MG PO ×2 (09:05→19:52)
[2021-06-08] MEDS: SILVERGEL (ELTA) 45 ML 1 APPLIC TOPICAL (09:06)
--- NOTE | 2021-06-08 09:53 | PM.IMPN ---
Progress Note: A&P Assessment and Plan (1) CKD (chronic kidney disease): Code(s): N18.9 - Chronic kidney disease, unspecified Status: Acute Assessment and Plan: Acute on top of chronic renal failure DC IV fluid patient has anasarca urine study was sent nephrology consult CT scan no evidence of hydronephrosis DC IV Lasix and changed to bumex 2mg IV BID Trend labs BUN/Cr elevated at 77/6.[address] Crenshaw who is suggesting dialysis Talked to her Daughter about the need and getting started here Line placement 06/07/2021 Plan for dialysis starting 06/08/2021 Outpatient dialysis to be set up with help of Case Management (2) IDDM (insulin dependent diabetes mellitus): Status: Acute Assessment and Plan: Resume home medication Blood sugar trend at goal (3) HTN (hypertension) with goal to be determined: Code(s): I10 - Essential (primary) hypertension Status: Acute Assessment and Plan: DC IV fluid Adjusted home medication BP stable (4) C. difficile colitis: Code(s): A04.72 - Enterocolitis due to Clostridium difficile, not specified as recurrent Status: Acute Assessment and Plan: C diff is positive Change flagyl to PO vanco Diarrhea has slowed down Controlled at timer Continue vancomycin oral for total 10-14 days (start date: 06/05/2021) (5) Anemia: Code(s): D64.9 - Anemia, unspecified Status: Acute Assessment and Plan: Hgb stable Transfuse if <7 Monitor (6) BKA stump complication: Code(s): T87.9 - Unspecified complications of amputation stump Status: Acute Assessment and Plan: Orthopedic consulted May need CT scan of the left stump Has increased drainage, however, is still kind of fresh with it being done about 1 month ago Stump on the left does have a open section that does not seem to be infected Wound care re-evaluated wound and put orders in for wound gel, ABD, and julia bandage to shrink the wound and prevent further infection Continue to monitor Wound culture with vancomycin-resistant interval coccus Antibiotic changed to linezolid (7) COVID-19: Code(s): U07.1 - COVID-19 Status: Acute Assessment and Plan: Pt shares room with COVID pts Continue to monitor Denies any symptoms COVID-19 is positive She remains on room air She is not complaining of a cough, shortness of breath, or covid like symptoms Without any respiratory deficit I would say that this is a current finding without PNA (8) Bladder wall thickening: Code(s): N32.89 - Other specified disorders of bladder Status: Acute Assessment and Plan: R/o cholecystitis GS consulted, continue current treatment HIDA scan showed no activity Tolerating diet abdominal examination benign Likely finding due to anasarca from renal failure (9) Colitis: Code(s): K52.9 - Noninfective gastroenteritis and colitis, unspecified Status: Acute Assessment and Plan: Continue IVF Continue with IV antibiotics I am concerned more on the side of edema than infectious colitis Stool study found no growth C diff positive (10) Cellulitis of left lower leg: Code(s): L03.116 - Cellulitis of left lower limb Status: Acute Assessment and Plan: Wound culture tested positive for VRE On IV linezolid Monitor drainage and continue wound care Trend labs Subjective Date/time seen: 06/08/21 09:53 Interval history: Interval history: Date/time seen: 06/02/21 09:33 Interval history: Patient seen and examined Patient presented to the hospital with abdominal pain CT scan shows anasarca concern for colitis cholecystitis surgery was consulted patient was treated with empiric antibiotic has she has significant leukocytosis but also CT scan shows pericardial effusion pleural effusion concern for anasarca Renal function worsened yesterday Edema
--- NOTE | 2021-06-08 10:06 | PM.PNNEP ---
Progress Note: A&P Assessment and Plan (1) CKD (chronic kidney disease): Code(s): N18.9 - Chronic kidney disease, unspecified Status: Acute Assessment and Plan: the patient has chronic kidney disease. most likely due to diabetes and hypertension. SHe may have an acute component due to covid and cdif. the patient is going to start dialysis today. Will watch for recovery as an outpatient. Her creatinine is still 6.3 Now that she is on dialysis we can switch the diuretics to p.o.. (2) Person under investigation for COVID-19: Code(s): Z20.822 - Contact with and (suspected) exposure to COVID-19 Status: Deleted Assessment and Plan: The test is positive. the patient is on respiratory isolation. (3) C. difficile colitis: Code(s): A04.72 - Enterocolitis due to Clostridium difficile, not specified as recurrent Status: Acute Assessment and Plan: The patient is on contact / c diff isolation. She is on Flagyl. (4) Anemia: Code(s): D64.9 - Anemia, unspecified Status: Acute Assessment and Plan: she is on epo. Will switch this to IV (5) Hyperkalemia: Code(s): E87.5 - Hyperkalemia Status: Acute Assessment and Plan: her potassium has been okay since admission. Now she will be on dialysis so will need Kayexalate at home anymore. (6) HTN (hypertension) with goal to be determined: Code(s): I10 - Essential (primary) hypertension Status: Acute Assessment and Plan: Blood pressure is fairly high. We will be taking fluid off so will see how it is as we remove fluid. Pulses in the 70s. . She is off the clonidine. (7) IDDM (insulin dependent diabetes mellitus): Status: Acute Assessment and Plan: She is on Accu-Cheks and sliding-scale insulin. Subjective Date/time seen: 06/08/21 10:06 Interval history: patient is alert. She is feeling okay. she ate some breakfast. Catheter placement went well. She is going to get dialysis today Exam Narrative: WDWN in NAD skin no rash or subcu nodules head ncat lungs clear bilaterally cor reg no rub or gallop abd BS+ nontender and soft ext 1+ edema up to umbilicus. bilateral BKA. Objective Data Vital Signs Vital Signs: Vital Signs - 24 hr 06/07/21 12:00 06/07/21 14:58 06/07/21 16:22 Temperature 36.1 C L Pulse Rate 70 56 L Respiratory Rate 19 16 Blood Pressure 168/56 H 120/86 Pulse Oximetry 97 97 94 06/07/21 16:35 06/07/21 16:50 06/07/21 20:00 Temperature 36.1 C L Pulse Rate 54 L 54 L 63 Respiratory Rate 16 16 16 Blood Pressure 157/69 H 141/65 H 124/42 L Pulse Oximetry 95 95 98 06/07/21 20:10 06/07/21 21:39 06/08/21 02:20 Temperature 36.1 C L Pulse Rate 60 63 Respiratory Rate Blood Pressure Pulse Oximetry 97 06/08/21 08:00 06/08/21 09:05 Temperature 36.4 C L Pulse Rate 70 71 Respiratory Rate 20 Blood Pressure 174/54 H Pulse Oximetry 98 Intake/Output Intake/Output: Intake & Output 06/05/21 06/06/21 06/07/21 06/08/21 23:59 23:59 23:59 23:59 Intake Total 1370 2460 880 540 Output Total 950 1350 950 450 Balance 420 1110 -70 90 Meds/Results Medications: Active Medications Generic Name Dose Route Start Last Admin Trade Name Freq PRN Reason Stop Dose Admin Hydrocodone Bitart/Acetaminophen 1 tab 06/01/21 10:45 06/08/21 01:41 Hydrocodone/Acetaminophen (*Crx) 5-325 Mg Tablet PO 1 tab Q4H PRN Administration Pain Albuterol 2 puff 06/01/21 10:45 Albuterol Sulfate (*Sp) Aerosol 1 Puff INHALATION Q4H PRN Shortness Of Breath Ascorbic Acid 500 mg 06/02/21 09:00 06/08/21 09:04 Ascorbic Acid 500 Mg Tablet PO 500 mg DAILY GLORY Administration Atorvastatin Calcium 40 mg 06/02/21 09:00 06/08/21 09:04 Atorvastatin 40 Mg Tablet PO 40 mg DAILY GLORY Administration Bisacodyl 5 mg 06/01/21 10:45 Bisacodyl 5 Mg Tablet Ec
--- NOTE | 2021-06-08 11:36 | PC.NURSE ---
Faxed COVID results noted in chart. COVID positive 05/17/2021 at facility. Hospitalist made aware. DC isolation. Initiate standard precautions
[2021-06-08 11:54] LABS: Glucose Point of Care 134 mg/dl (65-105)
--- NOTE | 2021-06-08 15:33 | PC.NURSE ---
This patient, Piedad Morales, was transferred to [dialysis ] on 06/08/21 at 1533.
[2021-06-08 16:56] LABS: Glucose Point of Care 117 mg/dl (65-105)
[2021-06-08] MEDS: HEPARIN SODIUM 1,000 UNITS/ML VIAL 6000 UNITS (19:33)
[2021-06-08] MEDS: FUROSEMIDE 80 MG TABLET PO (19:52)
[2021-06-08] MEDS: traZODone HCL 50 MG TABLET 100 MG PO (20:54)
[2021-06-09] MEDS: LINEZOLID 600 MG/300 ML 600 MG/300 ML SOLN 300 MG IVPB ×2 (03:11→15:13)
[2021-06-09] MEDS: VANCOMYCIN ORAL 125 MG/2.5 ML SYRUP PO ×4 (03:11→20:15)
[2021-06-09 06:00] VITALS: BP 151/50; PULSE 69; RESP 20; TEMP 36.9; O2SAT 98
[2021-06-09 07:14] LABS: Alanine Aminotransferase 7 U/L (4-35); Albumin Level 2.5 g/dL (3.5-5.1); Alkaline Phosphatase 80 U/L (38-126); Anion Gap 10 mmol/L (8-16); Aspartate Amino Transferase 23 U/L (14-36); Bilirubin,Total 0.2 mg/dL (0.2-1.3); Blood Urea Nitrogen 61 mg/dL (7-17); Calcium 7.3 mg/dL (8.4-10.2); Carbon Dioxide 15 mmol/L (22-30); Chloride 112 mmol/L (98-107); Estimated CRCL calculation 12 ml/min; Estimated Glomerular Filt Rate 8; Glucose 123 mg/dL (65-110); Potassium 3.9 mmol/L (3.4-5.0); Sodium 137 mmol/L (137-145)
[2021-06-09 08:00] LABS: Glucose Point of Care 118 mg/dl (65-105)
--- NOTE | 2021-06-09 08:04 | PM.PNNEP ---
Progress Note: A&P Assessment and Plan (1) CKD (chronic kidney disease): Code(s): N18.9 - Chronic kidney disease, unspecified Status: Acute Assessment and Plan: the patient has chronic kidney disease. most likely due to diabetes and hypertension. SHe may have an acute component due to covid and cdif. We still have no info from primary care physician or from halfway. She had dialysis yesterday and did well. 4L were removed. Will do another treatment tomorrow. If she goes home she lives near [place] which is where she would get her outpatient dialysis with her original 3d modeler. If she ends up back at the halfway she can dialyze at [facility] or whichever dialysis unit is closer there to. (2) Person under investigation for COVID-19: Code(s): Z20.822 - Contact with and (suspected) exposure to COVID-19 Status: Deleted Assessment and Plan: The patient time doubt is now off of respiratory isolation. She never did have very many symptoms. (3) C. difficile colitis: Code(s): A04.72 - Enterocolitis due to Clostridium difficile, not specified as recurrent Status: Acute Assessment and Plan: The patient is on Flagyl. (4) Anemia: Code(s): D64.9 - Anemia, unspecified Status: Acute Assessment and Plan: she is on epo. Will switch this to IV (5) Hyperkalemia: Code(s): E87.5 - Hyperkalemia Status: Acute Assessment and Plan: her potassium has been okay since admission. Now she will be on dialysis so will need Kayexalate at home anymore. (6) HTN (hypertension) with goal to be determined: Code(s): I10 - Essential (primary) hypertension Status: Acute Assessment and Plan: Blood pressure is fairly high. We will be taking fluid off so will see how it is as we remove fluid. Pulses in the 70s. . She is off the clonidine. (7) IDDM (insulin dependent diabetes mellitus): Status: Acute Assessment and Plan: She is on Accu-Cheks and sliding-scale insulin. Subjective Date/time seen: 06/09/21 08:04 Interval history: patient is alert. She is feeling okay. She is in good spirits. She is hoping for discharge to home soon. She does not want to go back to the rehab center. Exam Narrative: WDWN in NAD skin no rash or subcu nodules head ncat lungs clear cor reg no rub or gallop abd BS+ nontender and soft ext 1-2+ edema up to umbilicus. bilateral BKA. Objective Data Vital Signs Vital Signs: Vital Signs - 24 hr 06/08/21 09:05 06/08/21 15:40 06/08/21 15:51 Temperature 36.8 C Pulse Rate 71 61 60 Respiratory Rate 20 Blood Pressure 150/68 H 151/62 H Pulse Oximetry 06/08/21 16:00 06/08/21 16:15 06/08/21 16:30 Temperature Pulse Rate 56 L 50 L 47 L Respiratory Rate Blood Pressure 140/57 L 128/58 L 117/51 L Pulse Oximetry 06/08/21 16:45 06/08/21 17:00 06/08/21 17:15 Temperature Pulse Rate 46 L 47 L 49 L Respiratory Rate Blood Pressure 113/51 L 116/49 L 126/47 L Pulse Oximetry 06/08/21 17:30 06/08/21 17:45 06/08/21 18:00 Temperature Pulse Rate 43 L 49 L 52 L Respiratory Rate Blood Pressure 121/46 L 118/52 L 116/49 L Pulse Oximetry 06/08/21 18:30 06/08/21 18:54 06/08/21 19:00 Temperature 36.9 C Pulse Rate 50 L 51 L 52 L Respiratory Rate 20 Blood Pressure 106/50 L 121/56 L 145/64 H Pulse Oximetry 06/08/21 20:00 06/08/21 20:12 06/09/21 06:00 Temperature 36.3 C L 36.9 C Pulse Rate 54 L 54 L 69 Respiratory Rate 18 20 Blood Pressure 149/64 H 151/50 H Pulse Oximetry 100 98 Intake/Output Intake/Output: Intake & Output 06/06/21 06/07/21 06/08/21 06/09/21 23:59 23:59 23:59 23:59 Intake Total 2460 880 1280 520 Output Total 6089 428 2851 500 Balance 4465 -27 -0389 20 Meds/Results Medications: Active Medications Generic Name Dose Route Start Last Admin Trade Name Freq PRN
[2021-06-09] MEDS: dilTIAZem HCL CD 180 MG CAP.ER.24H 360 MG PO (08:22)
[2021-06-09] MEDS: ENOXAPARIN 30 MG/0.3 ML SYRINGE SUB-Q (08:22)
[2021-06-09] MEDS: ASCORBIC ACID 500 MG TABLET PO (08:23)
[2021-06-09] MEDS: FUROSEMIDE 80 MG TABLET PO ×2 (08:23→17:05)
[2021-06-09] MEDS: SODIUM BICARBONATE TAB 650 MG TABLET 1300 MG PO ×2 (08:23→17:05)
[2021-06-09] MEDS: DOCUSATE SODIUM 100 MG CAPSULE PO (08:23)
[2021-06-09] MEDS: THERAPEUTIC MULTIVITAMINS/MINERALS TAB (*BKC) 1 TABLET PO (08:23)
[2021-06-09] MEDS: FERROUS SULFATE 324 MG TABLET PO (08:23)
[2021-06-09] MEDS: ATORVASTATIN 40 MG TABLET PO (08:23)
[2021-06-09] MEDS: PANTOPRAZOLE 40 MG TABLET PO ×2 (08:24→20:12)
[2021-06-09 08:25] VITALS: PULSE 73
[2021-06-09] MEDS: carvediloL 25 MG TABLET PO ×2 (08:25→20:12)
[2021-06-09] MEDS: SILVERGEL (ELTA) 45 ML 1 APPLIC TOPICAL (08:25)
[2021-06-09 09:06] LABS: Basophils Absolute Auto 0.1 K/mm3 (0.0-0.1); Basophils Percent Auto 0.6 % (0.2-1.2); Eosinophils Absolute Auto 0.2 K/mm3 (0-0.3); Eosinophils Percent Auto 2.2 % (0-4.4); Hematocrit 28.8 % (37.0-47.0); Hemoglobin 9.4 g/dL (12.0-15.0); Immature Granulocyte Absolute 0.56 K/mm3 (0.00-0.031); Immature Granulocyte Percent A 5.2 % (0-0.5); Lymphocytes Absolute Auto 1.37 K/mm3 (0.9-3.2); Lymphocytes Percent Auto 12.8 % (18.3-44.2); Mean Corpuscular HGB Conc 32.6 g/dl (32-36); Mean Corpuscular Hemoglobin 28.7 pg (26-34); Mean Corpuscular Volume 88.1 fl (80-100); Mean Platelet Volume 10.1 fl (7.4-10.4); Monocytes Absolute Auto 0.6 K/mm3 (0.1-0.6); Neutrophils Absolute Auto 7.8 K/mm3 (1.3-6.7); Neutrophils Percent Auto 73.2 % (45.5-73.1); Platelet Count Result 266 k/mm3 (150-375); Red Blood Count 3.27 M/mm3 (4.2-5.4); Red Cell Distribution Width 17.5 % (11.5-14.5); White Blood Count 10.7 K/mm3 (4.5-10.0)
[2021-06-09 10:46] LABS: Platelet Estimate Adequate (Adequate)
[2021-06-09 10:47] LABS: Acanthocytes 2+ (NORMAL); Helmet Cells 1+ (NORMAL); Ovalocytes 2+ (NORMAL); Tear Drop Cells 1+ (NORMAL)
--- NOTE | 2021-06-09 11:43 | PM.IMPN ---
Progress Note: A&P Assessment and Plan (1) CKD (chronic kidney disease): Code(s): N18.9 - Chronic kidney disease, unspecified Status: Acute Assessment and Plan: Acute on top of chronic renal failure DC IV fluid patient has anasarca urine study was sent nephrology consult CT scan no evidence of hydronephrosis DC IV Lasix and changed to bumex 2mg IV BID Trend labs BUN/Cr elevated at 77/6.[address] Crenshaw who is suggesting dialysis Talked to her Daughter about the need and getting started here Line placement 06/07/2021 Plan for dialysis starting 06/08/2021 Outpatient dialysis to be set up with help of Case Management (2) IDDM (insulin dependent diabetes mellitus): Status: Acute Assessment and Plan: Resume home medication Blood sugar trend at goal (3) HTN (hypertension) with goal to be determined: Code(s): I10 - Essential (primary) hypertension Status: Acute Assessment and Plan: DC IV fluid Adjusted home medication BP stable (4) C. difficile colitis: Code(s): A04.72 - Enterocolitis due to Clostridium difficile, not specified as recurrent Status: Acute Assessment and Plan: C diff is positive Change flagyl to PO vanco Diarrhea has slowed down Controlled at timer Continue vancomycin oral for total 10-14 days (start date: 06/05/2021) (5) Anemia: Code(s): D64.9 - Anemia, unspecified Status: Acute Assessment and Plan: Hgb stable Transfuse if <7 Monitor (6) BKA stump complication: Code(s): T87.9 - Unspecified complications of amputation stump Status: Acute Assessment and Plan: Orthopedic consulted May need CT scan of the left stump Has increased drainage, however, is still kind of fresh with it being done about 1 month ago Stump on the left does have a open section that does not seem to be infected Wound care re-evaluated wound and put orders in for wound gel, ABD, and julia bandage to shrink the wound and prevent further infection Continue to monitor Wound culture with vancomycin-resistant interval coccus Antibiotic changed to linezolid (7) COVID-19: Code(s): U07.1 - COVID-19 Status: Acute Assessment and Plan: Pt shares room with COVID pts Continue to monitor Denies any symptoms COVID-19 is positive She remains on room air She is not complaining of a cough, shortness of breath, or covid like symptoms Without any respiratory deficit I would say that this is a current finding without PNA (8) Bladder wall thickening: Code(s): N32.89 - Other specified disorders of bladder Status: Acute Assessment and Plan: R/o cholecystitis GS consulted, continue current treatment HIDA scan showed no activity Tolerating diet abdominal examination benign Likely finding due to anasarca from renal failure (9) Colitis: Code(s): K52.9 - Noninfective gastroenteritis and colitis, unspecified Status: Acute Assessment and Plan: Continue IVF Continue with IV antibiotics I am concerned more on the side of edema than infectious colitis Stool study found no growth C diff positive (10) Cellulitis of left lower leg: Code(s): L03.116 - Cellulitis of left lower limb Status: Acute Assessment and Plan: Wound culture tested positive for VRE On IV linezolid Monitor drainage and continue wound care Trend labs Subjective Date/time seen: 06/09/21 11:43 06/08/2021: No overnight events. She got her dialysis catheter placed yesterday. Denies any shortness of breath or chest pain nausea vomiting. She states diarrhea is much better and stool is more formed now 1-2 episodes per day. The wound on her left BKA stump has improved with less redness and drainage per patient. Urine catheter in place and with clear urine. She is planned to be started on dialysis today 06/09/2019 interval history: [place]
[2021-06-09 12:05] LABS: Glucose Point of Care 126 mg/dl (65-105)
[2021-06-09 14:00] VITALS: BP 138/50; PULSE 64; RESP 18; TEMP 36.7; O2SAT 100
[2021-06-09 16:42] LABS: Glucose Point of Care 171 mg/dl (65-105)
[2021-06-09 20:00] VITALS: BP 172/55; PULSE 68; RESP 18; TEMP 36.3; O2SAT 100
[2021-06-09] MEDS: traZODone HCL 50 MG TABLET 100 MG PO (20:12)
[2021-06-09 21:03] LABS: Glucose Point of Care 210 mg/dl (65-105)
[2021-06-10] VITALS (17 sets, daily range): BP systolic 111–170; BP diastolic 45–62; PULSE 49–78; RESP 16–20; TEMP 35.3–36.7; O2SAT 95–100; BMI 10.0
[2021-06-10] MEDS: LINEZOLID 600 MG/300 ML 600 MG/300 ML SOLN 300 MG IVPB ×2 (02:03→17:08)
[2021-06-10] MEDS: VANCOMYCIN ORAL 125 MG/2.5 ML SYRUP PO ×4 (02:03→20:02)
[2021-06-10 07:14] LABS: Albumin Level 2.4 g/dL (3.5-5.1); Anion Gap 8 mmol/L (8-16); Blood Urea Nitrogen 61 mg/dL (7-17); Calcium 7.2 mg/dL (8.4-10.2); Carbon Dioxide 16 mmol/L (22-30); Chloride 110 mmol/L (98-107); Estimated CRCL calculation 12 ml/min; Estimated Glomerular Filt Rate 8; Glucose 124 mg/dL (65-110); Phosphorus 5.3 mg/dL (2.5-4.5); Potassium 4.2 mmol/L (3.4-5.0); Sodium 134 mmol/L (137-145)
[2021-06-10 07:31] LABS: Hematocrit 26.8 % (37.0-47.0); Hemoglobin 8.6 g/dL (12.0-15.0); Mean Corpuscular HGB Conc 32.1 g/dl (32-36); Mean Corpuscular Hemoglobin 28.5 pg (26-34); Mean Corpuscular Volume 88.7 fl (80-100); Mean Platelet Volume 10.2 fl (7.4-10.4); Platelet Count Result 269 k/mm3 (150-375); Red Blood Count 3.02 M/mm3 (4.2-5.4); Red Cell Distribution Width 17.5 % (11.5-14.5); White Blood Count 9.7 K/mm3 (4.5-10.0)
[2021-06-10 08:31] LABS: Glucose Point of Care 131 mg/dl (65-105)
[2021-06-10 08:42] LABS: Band Neutrophils Percent 1 % (0-6); Eosinophils Absolute Manual 0.19 K/mm3 (0.02-0.5); Eosinophils Percent Manual 2 % (0-4); Lymphocytes Absolute Manual 0.48 K/mm3 (1.1-4.5); Monocytes Absolute Manual 0.29 K/mm3 (0.1-0.90); Monocytes Percent Manual 3 % (3-9); Neutrophils Absolute Manual 8.73 K/mm3 (1.7-7.2); Neutrophils Percent Manual 89 % (46-73); Total Cells Counted 100
[2021-06-10 08:43] LABS: Atypical Lymphocytes Present; Crenated RBC 1+ (NORMAL); Hypochromasia 1+ (NORMAL); Platelet Estimate Adequate (Adequate); Poikilocytosis 1+ (NORMAL)
[2021-06-10] MEDS: SODIUM BICARBONATE TAB 650 MG TABLET 1300 MG PO ×2 (09:12→17:15)
[2021-06-10] MEDS: carvediloL 25 MG TABLET PO ×2 (09:12→20:02)
[2021-06-10] MEDS: THERAPEUTIC MULTIVITAMINS/MINERALS TAB (*BKC) 1 TABLET PO (09:13)
[2021-06-10] MEDS: ATORVASTATIN 40 MG TABLET PO (09:14)
[2021-06-10] MEDS: PANTOPRAZOLE 40 MG TABLET PO ×2 (09:14→20:02)
[2021-06-10] MEDS: FERROUS SULFATE 324 MG TABLET PO (09:14)
[2021-06-10] MEDS: FUROSEMIDE 80 MG TABLET PO ×2 (09:14→17:15)
[2021-06-10] MEDS: dilTIAZem HCL CD 180 MG CAP.ER.24H 360 MG PO (09:14)
[2021-06-10] MEDS: ENOXAPARIN 30 MG/0.3 ML SYRINGE SUB-Q (09:15)
[2021-06-10] MEDS: ASCORBIC ACID 500 MG TABLET PO (09:15)
[2021-06-10] MEDS: DOCUSATE SODIUM 100 MG CAPSULE PO (09:15)
[2021-06-10] MEDS: SILVERGEL (ELTA) 45 ML 1 APPLIC TOPICAL (09:16)
--- NOTE | 2021-06-10 10:15 | PM.IMPN ---
Progress Note: A&P Assessment and Plan (1) CKD (chronic kidney disease): Code(s): N18.9 - Chronic kidney disease, unspecified Status: Acute Assessment and Plan: Acute on top of chronic renal failure DC IV fluid patient has anasarca urine study was sent nephrology consult CT scan no evidence of hydronephrosis DC IV Lasix and changed to bumex 2mg IV BID Trend labs BUN/Cr elevated at 77/6.[address] Crenshaw who is suggesting dialysis Talked to her Daughter about the need and getting started here Line placement 06/07/2021 Plan for dialysis starting 06/08/2021 Outpatient dialysis to be set up with help of Case Management Awaiting the Hep B total core antibody lab test which should be resulted tomorrow A chair is being scheduled for her and can be confirmed after the last lab test comes back (2) IDDM (insulin dependent diabetes mellitus): Status: Acute Assessment and Plan: Resume home medication Blood sugar trend at goal (3) HTN (hypertension) with goal to be determined: Code(s): I10 - Essential (primary) hypertension Status: Acute Assessment and Plan: DC IV fluid Adjusted home medication BP stable (4) C. difficile colitis: Code(s): A04.72 - Enterocolitis due to Clostridium difficile, not specified as recurrent Status: Acute Assessment and Plan: C diff is positive Change flagyl to PO vanco Diarrhea has slowed down Controlled at timer Continue vancomycin oral for total 10-14 days (start date: 06/05/2021) (5) Anemia: Code(s): D64.9 - Anemia, unspecified Status: Acute Assessment and Plan: Hgb stable Transfuse if <7 Monitor (6) BKA stump complication: Code(s): T87.9 - Unspecified complications of amputation stump Status: Acute Assessment and Plan: Orthopedic consulted May need CT scan of the left stump Has increased drainage, however, is still kind of fresh with it being done about 1 month ago Stump on the left does have a open section that does not seem to be infected Wound care re-evaluated wound and put orders in for wound gel, ABD, and julia bandage to shrink the wound and prevent further infection Continue to monitor Wound culture with vancomycin-resistant interval coccus Antibiotic changed to linezolid, need to be changed to PO at discharge (7) COVID-19: Code(s): U07.1 - COVID-19 Status: Acute Assessment and Plan: Pt shares room with COVID pts Continue to monitor Denies any symptoms COVID-19 is positive She remains on room air She is not complaining of a cough, shortness of breath, or covid like symptoms Without any respiratory deficit I would say that this is a current finding without PNA (8) Bladder wall thickening: Code(s): N32.89 - Other specified disorders of bladder Status: Acute Assessment and Plan: R/o cholecystitis GS consulted, continue current treatment HIDA scan showed no activity Tolerating diet abdominal examination benign Likely finding due to anasarca from renal failure (9) Colitis: Code(s): K52.9 - Noninfective gastroenteritis and colitis, unspecified Status: Acute Assessment and Plan: Continue IVF Continue with IV antibiotics I am concerned more on the side of edema than infectious colitis Stool study found no growth C diff positive (10) Cellulitis of left lower leg: Code(s): L03.116 - Cellulitis of left lower limb Status: Acute Assessment and Plan: Wound culture tested positive for VRE On IV linezolid Monitor drainage and continue wound care Trend labs Subjective Date/time seen: 06/10/21 1015 Interval history: 06/08/2021: No overnight events. She got her dialysis catheter placed yesterday. Denies any shortness of breath or chest pain nausea vomiting. She states diarrhea is much better and stoo
--- NOTE | 2021-06-10 10:42 | PCNWS ---
Weekly nutritional screen. Patient is tolerating current diet with adequate intake of 90-100% of meals. No weight loss reported. No nutritional needs at this time.
[2021-06-10 12:38] LABS: Glucose Point of Care 137 mg/dl (65-105)
[2021-06-10] MEDS: EPOETIN ALFA-EPBX 10,000 UNITS/ML VIAL 10000 UNITS IV PUSH (14:55)
[2021-06-10] MEDS: SODIUM CHLORIDE 0.9% IV 1,000 ML 999 ML IV CONT (14:55)
--- NOTE | 2021-06-10 15:31 | PM.PNNEP ---
Progress Note: A&P Assessment and Plan (1) NALINI (acute kidney injury): Code(s): N17.9 - Acute kidney failure, unspecified Status: Acute Assessment and Plan: likely secondary to COVID-19 and C. difficile colitis infection initiated in [facility]/dialysis for optimization of fluid status, stabilization of acidosis, and clearance of uremic toxins unclear if renal recovery will occur HD today outpatient HD arrangement finalized (2) CKD (chronic kidney disease): Code(s): N18.9 - Chronic kidney disease, unspecified Status: Chronic Assessment and Plan: unclear on baseline creatinine/GFR secondary to diabetes and hypertension to follow-up with primary esthetician regarding renal dysfunction and dialysis (3) Anemia: Code(s): D64.9 - Anemia, unspecified Status: Acute Assessment and Plan: due to NALINI/CKD and acute illness Epogen with dialysis follow H/H (4) C. difficile colitis: Code(s): A04.72 - Enterocolitis due to Clostridium difficile, not specified as recurrent Status: Acute Assessment and Plan: on treatment for this continue current therapy (5) COVID-19: Code(s): U07.1 - COVID-19 Status: Acute Assessment and Plan: tested positive however, otherwise asymptomatic (6) Hyperkalemia: Code(s): E87.5 - Hyperkalemia Status: Acute Assessment and Plan: stabilized with use of dialysis follow trend of K+ (7) HTN (hypertension) with goal to be determined: Code(s): I10 - Essential (primary) hypertension Status: Acute Assessment and Plan: BP well controlled at this time follow trend of hemodynamics (8) IDDM (insulin dependent diabetes mellitus): Status: Acute Assessment and Plan: follow Accu-Cheks on sliding-scale insulin Will continue to follow. Subjective Date/time seen: 06/10/21 15:31 Chart reviewed - assuming care from Dr. Crenshaw; tolerating dialysis at the time of my visit (seen on HD at ~ 3:20PM); no apparent issues or problems overnight or earlier this AM; no apparent distress noted currently; noted plans for discharge upon completion of dialysis today. Exam Narrative: General: WD/WN female in NAD Heart: normal S1 and S2; no rub Lungs: clear to auscultation Abdomen: soft, nontender, nondistended, positive bowel sounds Extremities: no cyanosis or clubbing; 1 - 2+ edema; s/p bilateral BKA Skin: warm and dry Objective Data Vital Signs Vital Signs: Vital Signs Temp Pulse Resp BP Pulse Ox 06/10/21 15:30 57 L 111/52 L 06/10/21 15:15 51 L 119/51 L 06/10/21 15:00 52 L 125/59 L 06/10/21 14:45 49 L 129/58 L 06/10/21 14:30 51 L 127/50 L 06/10/21 14:14 56 L 139/58 L 06/10/21 14:00 35.3 C L 56 L 18 141/45 H 100 06/10/21 09:12 66 06/10/21 06:00 36.4 C L 78 20 162/62 H 95 06/09/21 20:00 36.3 C L 68 18 172/55 H 100 Intake/Output Intake/Output: Intake & Output 06/07/21 06/08/21 06/09/21 06/10/21 23:59 23:59 23:59 23:59 Intake Total 880 1280 2030 590 Output Total 950 4450 1175 500 Balance -70 -3170 855 90 Meds/Results Medications: Active Medications Generic Name Dose Route Start Last Admin Trade Name Freq PRN Reason Stop Dose Admin Hydrocodone Bitart/Acetaminophen 1 tab 06/01/21 10:45 06/08/21 22:19 Hydrocodone/Acetaminophen (*Crx) 5-325 Mg Tablet PO 1 tab Q4H PRN Administration Pain Albuterol 2 puff 06/01/21 10:45 Albuterol Sulfate (*Sp) Aerosol 1 Puff INHALATION Q4H PRN Shortness Of Breath Ascorbic Acid 500 mg 06/02/21 09:00 06/10/21 09:15 Ascorbic Acid 500 Mg Tablet PO 500 mg DAILY GLORY Administration Atorvastatin Calcium 40 mg 06/02/21 09:00 06/10/21 09:14 Atorvastatin 40 Mg Tablet PO 40 mg DAILY GLORY Administration Bisacodyl 5 mg 06/01/21 10:45 Bisacodyl 5 Mg Tablet Ec PO HS PRN
--- NOTE | 2021-06-10 15:31 | P.PNNP_ITS ---
Progress Note: A&P Assessment and Plan (1) NALINI (acute kidney injury): Code(s): N17.9 - Acute kidney failure, unspecified Status: Acute Assessment and Plan: * likely secondary to COVID-19 and C. difficile colitis infection * initiated in [employer]PER[employer]/dialysis for optimization of fluid status, stabilization of acidosis, and clearance of uremic toxins * unclear if renal recovery will occur * HD today * outpatient HD arrangement finalized (2) CKD (chronic kidney disease): Code(s): N18.9 - Chronic kidney disease, unspecified Status: Chronic Assessment and Plan: * unclear on baseline creatinine/GFR * secondary to diabetes and hypertension * to follow-up with primary edger technician regarding renal dysfunction and dialysis (3) Anemia: Code(s): D64.9 - Anemia, unspecified Status: Acute Assessment and Plan: * due to NALINI/CKD and acute illness * Epogen with dialysis * follow H/H (4) C. difficile colitis: Code(s): A04.72 - Enterocolitis due to Clostridium difficile, not specified as recurrent Status: Acute Assessment and Plan: * on treatment for this * continue current therapy (5) COVID-19: Code(s): U07.1 - COVID-19 Status: Acute Assessment and Plan: * tested positive * however, otherwise asymptomatic (6) Hyperkalemia: Code(s): E87.5 - Hyperkalemia Status: Acute Assessment and Plan: * stabilized with use of dialysis * follow trend of K+ (7) HTN (hypertension) with goal to be determined: Code(s): I10 - Essential (primary) hypertension Status: Acute Assessment and Plan: * BP well controlled at this time * follow trend of hemodynamics (8) IDDM (insulin dependent diabetes mellitus): Status: Acute Assessment and Plan: * follow Accu-Cheks * on sliding-scale insulin Will continue to follow. Subjective Date/time seen: 06/10/21 15:31 Chart reviewed - assuming care from Dr. Crenshaw; tolerating dialysis at the time of my visit (seen on HD at ~ 3:20PM); no apparent issues or problems overnight or earlier this AM; no apparent distress noted currently; noted plans for discharge upon completion of dialysis today. Exam Narrative: General: WD/WN female in NAD Heart: normal S1 and S2; no rub Lungs: clear to auscultation Abdomen: soft, nontender, nondistended, positive bowel sounds Extremities: no cyanosis or clubbing; 1 - 2+ edema; s/p bilateral BKA Skin: warm and dry Objective Data Vital Signs Vital Signs: Vital Signs Temp Pulse Resp BP Pulse Ox 06/10/21 15:30 57 L 111/52 L 06/10/21 15:15 51 L 119/51 L 06/10/21 15:00 52 L 125/59 L 06/10/21 14:45 49 L 129/58 L 06/10/21 14:30 51 L 127/50 L 06/10/21 14:14 56 L 139/58 L 06/10/21 14:00 35.3 C L 56 L 18 141/45 H 100 06/10/21 09:12 66 06/10/21 06:00 36.4 C L 78 20 162/62 H 95 06/09/21 20:00 36.3 C L 68 18 172/55 H 100 Intake/Output Intake/Output: Intake & Output 06/07/21 06/08/21 06/09/21 06/10/21 23:59 23:59 23:59 23:59 Intake Total 880 1280 2030 590 Output Total 950 9420 1175 500 Balance -70 -2122 855 90 Meds/Results Medications:
--- NOTE | 2021-06-10 18:13 | PM.PNORT ---
Progress Note: A&P Time Spent With Patient Time: Left Amp stump wound with improved less drainage. cont with dry sterile dressing cont with ATBs per medical service will follow on a prn basis as long as the wound healing improves she can f/u with the surgeon who did the amputation upon d/c if needed I would be happy to see her as an outpt to check this as well. Subjective Subjective Date/Time Seen: 06/10/21 18:13 Interval history: pt states she is having min stump pain. Exam Extrem: Other: Left amp stump dressing c+d less pain per pt. dressing at her last change was just scant drainage and no purulence. PER RN who did the change. she has done previous changes and states this was much improved. Objective Data Vital Signs Vital Signs: Vital Signs - 24 hr 06/09/21 20:00 06/10/21 06:00 06/10/21 09:12 Temperature 36.3 C L 36.4 C L Pulse Rate 68 78 66 Respiratory Rate 18 20 Blood Pressure 172/55 H 162/62 H Pulse Oximetry 100 95 06/10/21 14:00 06/10/21 14:14 06/10/21 14:30 Temperature 35.3 C L Pulse Rate 56 L 56 L 51 L Respiratory Rate 18 Blood Pressure 141/45 H 139/58 L 127/50 L Pulse Oximetry 100 06/10/21 14:45 06/10/21 15:00 06/10/21 15:15 Temperature Pulse Rate 49 L 52 L 51 L Respiratory Rate Blood Pressure 129/58 L 125/59 L 119/51 L Pulse Oximetry 06/10/21 15:30 06/10/21 15:45 06/10/21 16:00 Temperature Pulse Rate 57 L 51 L 54 L Respiratory Rate Blood Pressure 111/52 L 124/55 L 125/50 L Pulse Oximetry 06/10/21 16:15 06/10/21 16:30 06/10/21 16:45 Temperature Pulse Rate 50 L 51 L 53 L Respiratory Rate Blood Pressure 123/55 L 126/54 L 122/53 L Pulse Oximetry 06/10/21 17:02 Temperature 36.6 C Pulse Rate 54 L Respiratory Rate 16 Blood Pressure 124/56 L Pulse Oximetry Intake/Output Intake/Output: Intake & Output 06/07/21 06/08/21 06/09/21 06/10/21 23:59 23:59 23:59 23:59 Intake Total 880 1280 2030 1190 Output Total 217 9650 1173 1100 Balance -70 -7880 337 -7465 Meds/Results Medications: Active Medications Generic Name Dose Route Start Last Admin Trade Name Freq PRN Reason Stop Dose Admin Hydrocodone Bitart/Acetaminophen 1 tab 06/01/21 10:45 06/08/21 22:19 Hydrocodone/Acetaminophen (*Crx) 5-325 Mg Tablet PO 1 tab Q4H PRN Administration Pain Albuterol 2 puff 06/01/21 10:45 Albuterol Sulfate (*Sp) Aerosol 1 Puff INHALATION Q4H PRN Shortness Of Breath Ascorbic Acid 500 mg 06/02/21 09:00 06/10/21 09:15 Ascorbic Acid 500 Mg Tablet PO 500 mg DAILY GLORY Administration Atorvastatin Calcium 40 mg 06/02/21 09:00 06/10/21 09:14 Atorvastatin 40 Mg Tablet PO 40 mg DAILY GLORY Administration Bisacodyl 5 mg 06/01/21 10:45 Bisacodyl 5 Mg Tablet Ec PO HS PRN Constipation Carvedilol 25 mg 06/01/21 09:00 06/10/21 09:12 Carvedilol 25 Mg Tablet PO 25 mg Q12HR GLORY Administration Dextrose 12.5 gm 05/31/21 10:23 Dextrose 50% 25 Gm/50 Ml Syringe IV PUSH PRN PRN Hypoglycemia Protocol Diltiazem HCl 360 mg 06/02/21 09:00 06/10/21 09:14 Diltiazem Hcl Cd 180 Mg Cap.Er.24h PO 360 mg DAILY GLORY Administration Docusate Sodium 100 mg 06/02/21 09:00 06/10/21 09:15 Docusate Sodium 100 Mg Capsule PO 100 mg DAILY GLORY Administration Enoxaparin Sodium 30 mg 06/08/21 09:00 06/10/21 09:15 Enoxaparin 30 Mg/0.3 Ml Syringe SUB-Q 30 mg DAILY GLORY Administration Epoetin Andrew-epbx 10,000 units 06/10/21 17:00 06/10/21 14:55 Epoetin Andrew-Epbx 10,000 Units/Ml Vial IV PUSH 10,000 units [id number]@1700 GLORY Administration Ferrous Sulfate 324 mg 06/02/21 09:00 06/10/21 09:14 Ferrous Sulfate 324 Mg Tablet PO 324 mg DAILY GLORY Administration Furosemide 80 mg 06/08/21 17:00 06/10/21 17:15 Furosemide 80 Mg Tablet PO 80 mg BID GLORY Administration Glucagon 1 mg 05/31/21 10:23 Glucagon For Inj 1 Mg Vial IM
[2021-06-10 18:51] LABS: Hepatitis B Core Ab Total Nonreactive (Nonreactive)
[2021-06-10] MEDS: traZODone HCL 50 MG TABLET 100 MG PO (20:02)
[2021-06-10 20:23] LABS: Glucose Point of Care 197 mg/dl (65-105)
[2021-06-11] MEDS: LINEZOLID 600 MG/300 ML 600 MG/300 ML SOLN 300 MG IVPB ×2 (02:03→14:56)
[2021-06-11] MEDS: VANCOMYCIN ORAL 125 MG/2.5 ML SYRUP PO ×3 (02:04→14:56)
[2021-06-11 06:00] VITALS: BP 146/58; PULSE 87; RESP 14; TEMP 36.8; O2SAT 100
[2021-06-11 08:21] LABS: Glucose Point of Care 130 mg/dl (65-105)
[2021-06-11] MEDS: SODIUM BICARBONATE TAB 650 MG TABLET 1300 MG PO (08:28)
[2021-06-11] MEDS: ENOXAPARIN 30 MG/0.3 ML SYRINGE SUB-Q (08:29)
[2021-06-11 08:30] VITALS: PULSE 78
[2021-06-11] MEDS: ATORVASTATIN 40 MG TABLET PO (08:30)
[2021-06-11] MEDS: carvediloL 25 MG TABLET PO (08:30)
[2021-06-11] MEDS: FERROUS SULFATE 324 MG TABLET PO (08:31)
[2021-06-11] MEDS: PANTOPRAZOLE 40 MG TABLET PO (08:31)
[2021-06-11] MEDS: DOCUSATE SODIUM 100 MG CAPSULE PO (08:31)
[2021-06-11] MEDS: dilTIAZem HCL CD 180 MG CAP.ER.24H 360 MG PO (08:31)
[2021-06-11] MEDS: THERAPEUTIC MULTIVITAMINS/MINERALS TAB (*BKC) 1 TABLET PO (08:31)
[2021-06-11] MEDS: ASCORBIC ACID 500 MG TABLET PO (08:31)
[2021-06-11] MEDS: FUROSEMIDE 80 MG TABLET PO (08:31)
[2021-06-11] MEDS: SILVERGEL (ELTA) 45 ML 1 APPLIC TOPICAL (08:32)
--- NOTE | 2021-06-11 09:00 | PM.DS ---
DS: Admitting Diagnosis Discharge Date 06/11/21 0900 Admitting Diagnosis Acute on Chronic Renal Failure DS: Discharge Diagnosis Discharge Diagnosis (1) CKD (chronic kidney disease): Code(s): N18.9 - Chronic kidney disease, unspecified Status: Chronic Assessment and Plan: Acute on top of chronic renal failure DC IV fluid patient has anasarca urine study was sent nephrology consult CT scan no evidence of hydronephrosis DC IV Lasix and changed to bumex 2mg IV BID Trend labs BUN/Cr elevated at 61/5.[address] Crenshaw who is suggesting dialysis Talked to her Daughter about the need and getting started here Line placement 06/07/2021 Plan for dialysis starting 06/08/2021 Outpatient dialysis to be set up with help of Case Management Hep B total core antibody lab test came back negative [facility] (2) IDDM (insulin dependent diabetes mellitus): Status: Acute Assessment and Plan: Resume home medication Blood sugar trend at goal (3) HTN (hypertension) with goal to be determined: Code(s): I10 - Essential (primary) hypertension Status: Acute Assessment and Plan: DC IV fluid Adjusted home medication BP stable (4) C. difficile colitis: Code(s): A04.72 - Enterocolitis due to Clostridium difficile, not specified as recurrent Status: Acute Assessment and Plan: C diff is positive Change flagyl to PO vanco Diarrhea has slowed down Controlled at timer Continue vancomycin oral for total 10-14 days (start date: 06/05/2021) (5) Anemia: Code(s): D64.9 - Anemia, unspecified Status: Acute Assessment and Plan: Hgb stable Transfuse if <7 Monitor (6) BKA stump complication: Code(s): T87.9 - Unspecified complications of amputation stump Status: Acute Assessment and Plan: Orthopedic consulted May need CT scan of the left stump Has increased drainage, however, is still kind of fresh with it being done about 1 month ago Stump on the left does have a open section that does not seem to be infected Wound care re-evaluated wound and put orders in for wound gel, ABD, and julia bandage to shrink the wound and prevent further infection Continue to monitor Wound culture with vancomycin-resistant interval coccus Antibiotic changed to linezolid, need to be changed to PO at discharge (7) COVID-19: Code(s): U07.1 - COVID-19 Status: Acute Assessment and Plan: Pt shares room with COVID pts Continue to monitor Denies any symptoms COVID-19 is positive She remains on room air She is not complaining of a cough, shortness of breath, or covid like symptoms Without any respiratory deficit I would say that this is a current finding without PNA (8) Bladder wall thickening: Code(s): N32.89 - Other specified disorders of bladder Status: Acute Assessment and Plan: R/o cholecystitis GS consulted, continue current treatment HIDA scan showed no activity Tolerating diet abdominal examination benign Likely finding due to anasarca from renal failure (9) Colitis: Code(s): K52.9 - Noninfective gastroenteritis and colitis, unspecified Status: Acute Assessment and Plan: Continue IVF Continue with IV antibiotics I am concerned more on the side of edema than infectious colitis Stool study found no growth C diff positive (10) Cellulitis of left lower leg: Code(s): L03.116 - Cellulitis of left lower limb Status: Acute Assessment and Plan: Wound culture tested positive for VRE On IV linezolid Monitor drainage and continue wound care Trend labs DS: Summary Hospital Course Hospital Course: Patient is a 61 year old female with a past medical history of HLD, HTN, CKD, and DM who present to the ED with complaints of extremity swelling. It was note
[2021-06-11 10:11] LABS: Glucose Point of Care 136 mg/dl (65-105)
[2021-06-11 12:06] LABS: Glucose Point of Care 120 mg/dl (65-105)
[2021-06-11 14:00] VITALS: BP 160/80; PULSE 73; RESP 16; TEMP 36.1; O2SAT 98
== END 2021-06-11 15:50 | disposition home or self-care (01) | DRG 469 ==
LOC: ANHED 05-31 06:23 → ANH3MEDSUR 05-31 06:49
PROVIDERS: Internal Medicine; Internal Medicine Nephrology; Nurse Practitioner Adult Health; Specialist; Surgery; Admitting Provider Internal Medicine; Emergency Provider Emergency Medicine; Visit Provider Nurse Practitioner
PROC: 0JH63XZ Insertion of Tunneled Vascular Access Device into Chest Subcutaneous Tissue and Fascia, Percutaneous Approach (ICD-10-PCS; CPT 36908; principal; 2021-06-07 07:30)
DX: N17.9 Acute kidney failure, unspecified (principal); A04.72 Enterocolitis due to Clostridium difficile, not specified as recurrent; U07.1 COVID-19; D72.829 Elevated white blood cell count, unspecified; E11.22 Type 2 diabetes mellitus with diabetic chronic kidney disease; I12.9 Hypertensive chronic kidney disease with stage 1 through stage 4 chronic kidney disease, or unspecified chronic kidney disease; N18.9 Chronic kidney disease, unspecified; N32.89 Other specified disorders of bladder; Z79.4 Long term (current) use of insulin; D64.9 Anemia, unspecified; I31.3 Pericardial effusion (noninflammatory); J90 Pleural effusion, not elsewhere classified; E87.2 Acidosis; E87.5 Hyperkalemia; Y83.5 Amputation of limb(s) as the cause of abnormal reaction of the patient, or of later complication, without mention of misadventure at the time of the procedure; Y92.129 Unspecified place in nursing home as the place of occurrence of the external cause; E87.70 Fluid overload, unspecified; E66.01 Morbid (severe) obesity due to excess calories; Z68.41 Body mass index [BMI] 40.0-44.9, adult; T87.89 Other complications of amputation stump; T87.44 Infection of amputation stump, left lower extremity; B95.2 Enterococcus as the cause of diseases classified elsewhere; Z16.22 Resistance to vancomycin related antibiotics; Q44.1 Other congenital malformations of gallbladder; E11.21 Type 2 diabetes mellitus with diabetic nephropathy
CPT/HCPCS: 36415; 51701; 73700; 74176; 76775; 77001; 78226; 80053; 80069; 80076; 80202; 81001; 81050; 82550; 82570; 82948; 83036; 83540; 83550; 83605; 83735; 83935; 84100; 84133; 84156; 84300; 85025; 85027; 85048; 85055; 85380; 85652; 86140; 86704; 86706; 86803; 87040; 87045; 87070; 87077; 87086; 87088; 87186; 87205; 87269; 87272; 87340; 87427; 87493; 89055; 93306; 96361; 96365; 96366; 96367; 96375; 96376; 97162; 97166; 99285; A9270; A9537; C1750; C9803; G0257; G0378; J1644; J1650; J1940; J2020; J2060; J2185; J2270; J2543; J2704; J3370; J3475; J7030; J7040; J7120; P9047; Q5105; U0003; U0005